=== PATIENT | male | born 1980 | race Caucasian/White ===

== ENCOUNTER 2023-04-04 13:41 | Emergency (ER) | payer MEDICAID, SELFPAY ==
[2023-04-04 13:59] VITALS: BP 116/75; PULSE 110; RESP 23; TEMP 36.4; O2SAT 99; BMI 21.2
--- NOTE | 2023-04-04 14:06 | XR_ITS ---
WS: [id number] EXAMINATION: XR chest 1V portable [id number] REASON FOR EXAM: dyspnea ORDER DATE: 04/04/2023 2:06 PM FINDINGS: There are perihilar and parenchymal granulomatous calcifications. Cardiomegaly is demonstrated. Ther e is an atherosclerotic aorta containing calcified plaque. There are no pleural effusions. XR/XR chest 1V portable [id number] IMPRESSION: CARDIOMEGALY WITH NO ACUTE PULMONARY CHANGE.
--- NOTE | 2023-04-04 14:06 | ECG_ITS ---
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 Measurements Intervals [place] Rate: 106 P: 61 HI: 148 QRS: -26 QRSD: 114 T: 192 QT: 350 QTc: 466 Interpretive Statements SINUS TACHYCARDIA LEFT ATRIAL ENLARGEMENT [-0.15mV P-WAVE IN V1/V2] BORDERLINE LEFT AXIS DEVIATION [QRS AXIS < -20] POSSIBLE RIGHT VENTRICULAR CONDUCTION DELAY [RSR (QR) IN V1/V2] ST DEVIATION AND MODERATE T-WAVE ABNORMALITY, CONSIDER LATERAL ISCHEMIA [-0.1+ mV T-WAVE IN I/aVL/V5/V6] ST DEVIATION AND MODERATE T-WAVE ABNORMALITY, CONSIDER INFERIOR ISCHEMIA [-0.1+ mV T-WAVE IN II/aVF] No previous ECG available for comparison Electronically Signed On 04-04-2023 18:39:05 CDT by Alicia Tuttle M.D. [id number] [email or web address]
[2023-04-04 14:17] VITALS: BP 118/84; PULSE 106; RESP 16; O2SAT 97
[2023-04-04] MEDS: sodium chloride 0.9% 1,000 ML 999 ML IV (14:24)
[2023-04-04 14:32] LABS: Basophils # 0.1 10^3/uL (0.0-0.1); Basophils % 0.7 %; Eosinophils # 0.1 10^3/uL (0.0-0.8); Hematocrit 51.7 % (42.0-52.0); Hemoglobin 17.2 g/dL (11.7-16.6); Lymphocytes # 1.7 10^3/uL (0.8-4.8); Lymphocytes % 20.9 %; Mean Corpuscular HGB Conc 33.3 g/dL (30.0-36.0); Mean Corpuscular Hemoglobin 31.4 pg (28.0-34.0); Mean Corpuscular Volume 94.3 fl (80-94); Mean Platelet Volume 10.6 fL (7.4-10.4); Monocytes # 0.6 10^3/uL (0.2-0.9); Monocytes % 6.7 %; Neutrophils # 5.76 10^3/uL (1.8-7.7); Neutrophils % 70.3 %; Nucleated Red Blood Cells % 0 %; Platelet Count 227 10^3/cmm (130-400); Red Blood Count 5.48 10^6/uL (4.1-5.3); Red Cell Distribution Width 12.9 % (12.1-15.1); White Blood Count 8.2 10^3/uL (4.0-10.0)
[2023-04-04 14:47] LABS: Troponin(5th) Baseline 27 ng/L (0-15)
[2023-04-04 14:50] LABS: Alanine Aminotransferase 100 U/L (0-41); Albumin Level 4.1 g/dL (3.5-5.2); Alkaline Phosphatase 147 U/L (40-130); Anion Gap 14.9 (5-19); Aspartate Amino Transferase 56 U/L (0-40); Blood Urea Nitrogen 11 mg/dL (6-20); Carbon Dioxide 25 mmol/L (22-29); Chloride 102 mmol/L (98-107); Globulin 2.2 g/dL (1.3-4.6); Glomerular Filtration Rate 82.3 mL/min (90-130); Glucose 165 mg/dL (65-115); Lipase 33 U/L (13-60); Osmolality Calculated 287 mOsm/kg (285-295); Potassium 4.9 mmol/L (3.5-5.1); Sodium 137 mmol/L (136-145); Total Bilirubin 0.5 mg/dL (0.15-1.2); Total Protein 6.3 g/dL (6.6-8.7)
--- NOTE | 2023-04-04 15:00 | PC.PHAR ---
PT STATES HE HAS BEEN TAKING ACCUTANE 10 MG AM AND 10 MG PM. TESTOSTERONE LOW DOSE, ARAMASIN. HE STATES HE DOES NOT USE A PHARMACY AND IS UNABLE TO OBTAIN THEM LEGALLY
--- NOTE | 2023-04-04 15:06 | ED_ITS ---
HPI - SOB/Dyspnea General: Chief Complaint: Shortness of Breath/Dyspnea Stated Complaint: SOB Time Seen by Provider: 04/04/23 14:06 History of Present Illness: HPI Narrative: Presents to the ER with complaints of shortness of breath started roughly about a week ago but then got better and came back roughly 12 hours ago worse. Patient did take in an old albuterol inhaler and it did seem to help. Patient does vape daily and occasionally smokes, patient stressed out daily. 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 Patient's pulse upon arrival was about 110 bpm. Albuterol inhaler did help nothing that the patient is aware of that seems to make this worse. Patient does not have a history of asthma or COPD. Review of Systems General: Reports: 10 or more systems reviewed and unremarkable except in HPI and below Physical Exam Const: COMMON NORMALS: no acute distress, average body habitus, patient oriented x3, no limitations, healthy appearing, alert and well nourished HENMT: COMMON NORMALS: normocephalic, atraumatic, hearing grossly normal bilaterally, external ears normal, Normal external nose present and moist oral mucous membranes HEAD & SCALP: normocephalic and atraumatic NOSE: Normal external nose present EXTERNAL EAR: Yes external ears normal Neck/C-Spine: COMMON NORMALS: full ROM, no lymphadenopathy, supple, no meningeal signs, no JVD and Thyroid normal THYROID: Thyroid normal Chest: COMMONS NORMALS: normal inspection of the chest and normal palpation of entire chest wall Resp: COMMON NORMALS: normal respiratory effort, No retractions and No use of accessory muscles; negative for clear to auscultation bilaterally (Occasional diffuse wheeze) AUSCULTATION: not clear to auscultation bilaterally (Occasional diffuse wheeze) Cardio: COMMON NORMALS: no JVD, regular rate, regular rhythm, S1 normal heart sound present, S2 normal heart sound present, No gallops present (Cardio), No clicks present (Cardio), No murmurs present (Cardio) and No rub (Cardio) RATE: regular rate RHYTHM: regular rhythm HEART SOUNDS: S1 normal heart sound present and S2 normal heart sound present GI: COMMON NORMALS: Normal to inspection, nondistended, normoactive bowel sounds present, Soft to palpation, non-tender, No hepatosplenomegaly present and no masses PALPATION: Yes Soft to palpation and Yes No hepatosplenomegaly present : COMMON NORMALS: Yes no CVA tenderness BLADDER/KIDNEY EXAM: Yes no CVA tenderness Back/Pelvis: COMMON NORMALS: no CVA tenderness Neuro: COMMON NORMALS: patient oriented x3 SENSORIUM/ORIENTATION: Yes alert MENINGEAL SIGNS: Yes no meningeal signs Course Vital Signs: Vital signs: Vital Signs Temperature 97.5 F L 04/04/23 13:59 Pulse Rate 100 04/04/23 15:36 Respiratory Rate 22 H 04/04/23 15:31 Blood Pressure 118/84 04/04/23 14:17 Pulse Oximetry 96 04/04/23 15:31 Oxygen Delivery Me thod Room Air 04/04/23 15:31 MDM - SOB/Dyspnea Medical Decision Making Presents to the ER with complaints of shortness of breath for about the last week. Worsening over the last 12 hours. 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 Lab work chest x-ray was obtained which was essentially benign. Patient was given 1 DuoNeb seem to help a lot. Patient was informed about the good Rx program and will be prescribed a Combivent inhaler. Patient is to follow-up with his PCP in approximately 7 to 10 days as needed. Differential Diagnosis Unlikely acute exacerbation of chronic obstructive airways disease, congestive heart failure, community acquired pneumonia, asthma with exacerbation or pulmonary embolism Medical Records I reviewed the patient's medical records. Lab Data I reviewed the patient's lab results. 04/04/23 14:15 04/04/23 14:15 Labs/Radiology: Radiology Impressions Chest X-Ray 04/04/23 14:06 IMPRESSION: CARDIOMEGALY WITH NO ACUTE PULMONARY CHANGE. Laboratory Results WBC 8.2 10^3/uL (4.0-10.0) 04/04/23 14:15 RBC 5.48 10^6/uL (4.1-5.3) H 04/04/23 14:15 Hgb 17.2 g/dL (11.7-16.6) H 04/04/23 14:15 Hct 51.7 % (42.0-52.0) 04/04/23 14:15 MCV 94.3 fl (80-94) H 04/04/23 14:15 MCH 31.4 pg (28.0-34.0) 04/04/23 14:15 MCHC 33.3 g/dL (30.0-36.0) 04/04/23 14:15 RDW 12.9 % (12.1-15.1) 04/04/23 14:15 Plt Count 227 10^3/cmm (130-400) 04/04/23 14:15 MPV 10.6 fL (7.4-10.4) H 04/04/23 14:15 Neut % (Auto) 70.3 % 04/04/23 14:15 Lymph % (Auto) 20.9 % 04/04/23 14:15 Peñuel[place] % (Auto) 6.7 % 04/04/23 14:15 Eos % (Auto) 1.0 % 04/04/23 14:15 Baso % (Auto) 0.7 % 04/04/23 14:15 Neut # (Auto) 5.76 10^3/uL (1.8-7.7) 04/04/23 14:15 Lymph # (Auto) 1.7 10^3/uL (0.8-4.8) 04/04/23 14:15 [place] # (Auto) 0.6 10^3/uL (0.2-0.9) 04/04/23 14:15 Eos # (Auto) 0.1 10^3/uL (0.0-0.8) 04/04/23 14:15 Baso # (Auto) 0.1 10^3/uL (0.0-0.1) 04/04/23 14:15 Nucleated RBC % (auto) 0 % 04/04/23 14:15 Nucleated RBCs # 0.0 /100WBC 04/04/23 14:15 Sodium 137 mmol/L (136-145) 04/04/23 14:15 Potassium 4.9 mmol/L (3.5-5.1) 04/04/23 14:15 Chloride 102 mmol/L (98-107) 04/04/23 14:15 Carbon Dioxide 25 mmol/L (22-29) 04/04/23 14:15 Anion Gap 14.9 (5-19) 04/04/23 14:15 BUN 11 mg/dL (6-20) 04/04/23 14:15 Creatinine 1.0 mg/dL (0.7-1.2) 04/04/23 14:15 GFR Calculation 82.3 mL/min (90-130) L 04/04/23 14:15 Glucose 165 mg/dL (65-115) H 04/04/23 14:15 Calculated Osmolality 287 mOsm/kg (285-295) 04/04/23 14:15 Calcium 9.0 mg/dL (8.5-10.5) 04/04/23 14:15 Magnesium 2.0 mg/dL (1.7-2.3) 04/04/23 14:15 Total Bilirubin 0.5 mg/dL (0.15-1.2) 04/04/23 14:15 AST 56 U/L (0-40) H 04/04/23 14:15 ALT 100 U/L (0-41) H 04/04/23 14:15 Alkaline Phosphatase 147 U/L (40-130) H 04/04/23 14:15 Troponin T Baseline 27 ng/L (0-15) H 04/04/23 14:15 Total Protein 6.3 g/dL (6.6-8.7) L 04/04/23 14:15 Albumin 4.1 g/dL (3.5-5.2) 04/04/23 14:15 Globulin 2.2 g/dL (1.3-4.6) 04/04/23 14:15 Lipase 33 U/L (13-60) 04/04/23 14:15 Discharge Plan Discharge Patient Disposition: Home Clinical Impression: Shortness of breath Condition: Stable Prescriptions: New ProAir RespiClick 90 mcg/actuation aerosol powdr breath activated 2 inh inhalation Q6H PRN (Reason: shortness of breath) Qty: 1 0RF Discharge Orders: Discharge ED (Routine); Ordered 04/04/23 Ordered By: Mariano Guerra Patient Instructions: Shortness of Breath (ED) Activity Restrictions/Additional Instructions: Please use a good Rx prescription program when purchasing your inhaler as this will save you a lot of money. Please use your inhaler as directed. Please follow-up with your family practice doctor in 1 week or sooner as needed. Coding Level of Care Code ED Drapery Operator for Michelle Patel
[2023-04-04] MEDS: ipratropium-albuterol 3 mL Neb INHALATION (15:28)
[2023-04-04 15:31] VITALS: PULSE 103; RESP 22; O2SAT 96
[2023-04-04 15:36] VITALS: PULSE 100
[2023-04-04 15:59] VITALS: BP 115/80; PULSE 105; RESP 16; O2SAT 95
== END 2023-04-04 16:01 | disposition home or self-care (01) ==
PROVIDERS: Emergency Provider Emergency Medicine
DX: R55 Syncope and collapse (principal)
CPT/HCPCS: 71045; 80053; 83690; 83735; 84484; 85025; 93005; 94640; 96360; 99285; J7030

== ENCOUNTER 2023-04-27 23:24 | Inpatient (IN) | payer MEDICAID, SELFPAY ==
[2023-04-27 23:28] VITALS: BP 123/81; PULSE 120; RESP 30; TEMP 36.4; O2SAT 99; BMI 20.5
--- NOTE | 2023-04-27 23:33 | ECG_ITS ---
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 Measurements Intervals [place] Rate: 117 P: 52 ND: 156 QRS: -68 QRSD: 117 T: 122 QT: 341 QTc: 477 Interpretive Statements SINUS TACHYCARDIA LEFT ATRIAL ENLARGEMENT [-0.15mV P-WAVE IN V1/V2] POSSIBLE RIGHT VENTRICULAR CONDUCTION DELAY [RSR (QR) IN V1/V2] LEFT ANTERIOR FASCICULAR BLOCK [QRS AXIS <= -45, QR IN I, RS IN II] ANTEROLATERAL MYOCARDIAL INFARCTION , OF INDETERMINATE AGE [40+ ms Q WAVE IN I/aVL/V3-V6] Compared to ECG 04/04/2023 13:58:39 Left anterior fascicular block now present Myocardial infarct finding now present T-wave abnormality no longer present Possible ischemia no longer present Electronically Signed On 04-28-2023 11:08:36 CDT by Therese Feliciano M.D. [id number]
--- NOTE | 2023-04-27 23:33 | XRR_ITS ---
PROCEDURE INFORMATION: Exam: XR Chest Exam date and time: 04/27/2023 11:39 PM Age: 42 years old Clinical indication: Shortness of breath; Chest pressure; Patient HX: C/O chest pain with SOB. Tachycardic on monitor. ; Additional info: Cp TECHNIQUE: Imaging protocol: Radiologic exam of the chest. Views: 1 view. COMPARISON: CR XR chest 1V portable [id number] 04/04/2023 2:18 PM FINDINGS: Lungs: Moderate there is some focal subsegmental atelectasis in the lingula. There is mild pulmonary venous congestion. Pleural spaces: Unremarkable. No pleural effusion. No pneumothorax. Heart/Mediastinum: The heart is enlarged. Bones/joints: Unremarkable. XR/XR chest 1V portable [id number] IMPRESSION: 1. Mild congestive failure. 2. Mild lingular atelectasis.
--- NOTE | 2023-04-27 23:59 | CTR_ITS ---
PROCEDURE INFORMATION: Exam: CTA Chest With Contrast Exam date and time: 04/28/2023 12:26 AM Age: 42 years old Clinical indication: Pain and abnormal findings; Abnormal lab test; Other: N/a; Abdominal pain; Abnormal diagnostic tests; Elevated d-dimer; Shortness of breath; Chest pressure; Patient HX: Chest/epigastric pain with SOB. D dimer of 0.81. ; Additional info: Chest pain, abd pain, SOB TECHNIQUE: Imaging protocol: Computed tomographic angiography of the chest with contrast. Exam focused on the arteries. 3D rendering (Not supervised by radiologist): MIP and/or 3D reconstructed images were created by the technologist. Radiation optimization: All CT scans at this facility use at least one of these dose optimization techniques: automated exposure control; mA and/or kV adjustment per patient size (includes targeted exams where dose is matched to clinical indication); or iterative reconstruction. Contrast material: OMNI 350; Contrast volume: 100 ml; Contrast route: INTRAVENOUS (IV); REPORTING DATA: Count of CT and Cardiac NM exams in prior 12 months: This patient has received 0 known CTs and 0 known cardiac nuclear medicine studies in the 12 months prior to the current study. COMPARISON: CR (CHEST, ) 04/27/2023 11:39 PM RADIATION DOSE METRICS: Total DLP (mGy-cm): 774.83 FINDINGS: Pulmonary arteries: There is no evidence of filling defects within the pulmonary arterial circulation to suggest pulmonary embolism. Aorta: There is no thoracic aortic aneurysm. 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 There is reflux of contrast into the inferior vena cava and right and middle hepatic veins. This may indicate cardiac dysfunction. Lungs: There is some focal subsegmental atelectasis in the lingula and left lower lobe. There are areas of mild bronchial wall thickening in both lungs in there are rounded areas of central ground-glass opacity mostly in a peribronchial distribution. Findings are worrisome for bronchitis and multifocal bronchopneumonia. Pleural spaces: There is a small right and tiny left pleural effusion. Heart: The heart is moderately enlarged. There is left ventricular enlargement and left atrial enlargement. Lymph nodes: There is no evidence of lymphadenopathy. Bones/joints: Unremarkable. No acute fracture. Soft tissues: Unremarkable. PROCEDURE INFORMATION: Exam: CT Abdomen And Pelvis With Contrast Exam date and time: 04/28/2023 12:26 AM Age: 42 years old Clinical indication: Pain and abnormal findings; Abnormal lab test; Other: N/a; Abdominal pain; Abnormal diagnostic tests; Elevated d-dimer; Shortness of breath; Chest pressure; Patient HX: Chest/epigastric pain with SOB. D dimer of 0.81. ; Additional info: Chest pain, abd pain, SOB TECHNIQUE: Imaging protocol: Computed tomography of the abdomen and pelvis with contrast. Radiation optimization: All CT scans at this facility use at least one of these dose optimization techniques: automated exposure control; mA and/or kV adjustment per patient size (includes targeted exams where dose is matched to clinical indication); or iterative reconstruction. Contrast material: OMNI 350; Contrast volume: 100 ml; Contrast route: INTRAVENOUS (IV); REPORTING DATA: Count of CT and Cardiac NM exams in prior 12 months: This patient has received 0 known CTs and 0 known cardiac nuclear medicine studies in the 12 months prior to the current study. COMPARISON: CT abdomen pelvis wo con [id number] 11/28/2015 2:12 AM RADIATION DOSE METRICS: Total DLP (mGy-cm): 774.83 FINDINGS: Liver: There is no focal abnormality within the liver. There is mild enlargement of the liver. Liver is 21 cm in height. Gallbladder and bile ducts: There is marked gallbladder wall thickening which is a nonspecific finding. Cholecystitis can not be excluded.There is no common bile duct dilation. Pancreas: The pancreas is normal. The pancreas is normal. Spleen: The spleen is normal. Adrenal glands: The adrenal glands are normal. Kidneys and ureters: There is focal area of diminished cortical enhancement in the upper pole of the right kidney which is worrisome for focal pyelonephritis. Please correlate clinically. 13 mm benign-appearing simple cyst lower pole left kidney. There is no evidence of hydronephrosis. There is no evidence of renal or ureteral calcifications. Stomach and bowel: There is no evidence of colitis/diverticulitis. There is no evidence of intestinal obstruction. Appendix: A normal appendix is identified. Intraperitoneal space: There is no evidence of free intraperitoneal fluid. Vasculature: The aorta is normal. Lymph nodes: There are periaortic lymph nodes measuring up to 8 x 13 mm, somewhat increased in number but no adenopathy. Urinary bladder: Unremarkable as visualized. Reproductive: Unremarkable as visualized. Bones/joints: Unremarkable. No acute fracture. Soft tissues: Unremarkable. CT/CT angio chest w abd pel w con IMPRESSION: 1. No evidence of pulmonary embolism. 2. Cardiomegaly with left ventricular and left atrial enlargement 3. Findings suggestive of cardiac dysfunction. 4. Bronchitis and multifocal bronchopneumonia. 5. Bilateral pleural effusions right greater than left IMPRESSION: 1. Marked gallbladder wall thickening which is a nonspecific finding but cholecystitis not excluded 2. Focal pyelonephritis upper pole right kidney.. 3. Mild hepatomegaly COMMENTS: Consistent with the [place] [employer]'s Incidental Findings Committee white paper (J Am Luzmaria Radiol 2018): Any incidental renal lesion less than 1 cm or classified as too small to characterize, or any incidental cystic renal lesion characterized as simple-appearing, is likely benign. No follow-up imaging is recommended for these lesions per consensus recommendations based on imaging criteria.
[2023-04-28] VITALS (154 sets, daily range): BP systolic 93–123; BP diastolic 49–81; PULSE 83–116; RESP 12–39; TEMP 36.4–37; O2SAT 93–100
[2023-04-28 00:04] LABS: Basophils # 0.1 10^3/uL (0.0-0.1); Basophils % 1.2 %; Eosinophils # 0.1 10^3/uL (0.0-0.8); Eosinophils % 1.2 %; Hematocrit 52.4 % (42.0-52.0); Hemoglobin 17.5 g/dL (11.7-16.6); Lymphocytes # 2.5 10^3/uL (0.8-4.8); Lymphocytes % 24.9 %; Mean Corpuscular HGB Conc 33.4 g/dL (30.0-36.0); Mean Corpuscular Hemoglobin 30.6 pg (28.0-34.0); Mean Corpuscular Volume 91.6 fl (80-94); Monocytes # 0.7 10^3/uL (0.2-0.9); Monocytes % 6.6 %; Neutrophils # 6.65 10^3/uL (1.8-7.7); Neutrophils % 65.8 %; Nucleated Red Blood Cells % 0 %; Platelet Count 292 10^3/cmm (130-400); Red Blood Count 5.72 10^6/uL (4.1-5.3); Red Cell Distribution Width 12.4 % (12.1-15.1); White Blood Count 10.1 10^3/uL (4.0-10.0)
[2023-04-28 00:08] LABS: D Dimer 0.81 ug/mIFEU (0-0.59)
[2023-04-28 00:12] LABS: Troponin(5th) Baseline 31 ng/L (0-15)
[2023-04-28] MEDS: morphine 4 mg/mL SDV 1 mL IVP (00:19)
[2023-04-28] MEDS: aluminum-mag hydrox-simethicon 30 ML, sucralfate oral liq 1 GM PO (00:19)
[2023-04-28] MEDS: ondansetron 2 mg/ML SDV 2 mL 4 MG IVP ×3 (00:19→11:21)
[2023-04-28 00:30] LABS: SARS Covid-2 Antigen negative (Negative)
[2023-04-28] MEDS: iohexol 350 mg/mL 500 mL Btl (per mL) IV (00:31)
[2023-04-28 00:37] LABS: Alanine Aminotransferase 234 U/L (0-41); Albumin Level 4.2 g/dL (3.5-5.2); Alkaline Phosphatase 132 U/L (40-130); Anion Gap 17.8 (5-19); Aspartate Amino Transferase 136 U/L (0-40); Blood Urea Nitrogen 23 mg/dL (6-20); Calcium 8.7 mg/dL (8.5-10.5); Carbon Dioxide 18 mmol/L (22-29); Chloride 106 mmol/L (98-107); Creatine Phosphokinase 204 U/L (39-308); Globulin 1.7 g/dL (1.3-4.6); Glomerular Filtration Rate 82.3 mL/min (90-130); Glucose 121 mg/dL (65-115); NT Pro B Type Natriuretic Pept 18814 pg/mL (0-125); Osmolality Calculated 289 mOsm/kg (285-295); Potassium 4.8 mmol/L (3.5-5.1); Sodium 137 mmol/L (136-145); Total Bilirubin 0.7 mg/dL (0.15-1.2); Total Protein 5.9 g/dL (6.6-8.7)
--- NOTE | 2023-04-28 01:33 | ECG_ITS ---
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 Measurements Intervals [place] Rate: 94 P: 54 SC: 164 QRS: -58 QRSD: 110 T: 219 QT: 378 QTc: 475 Interpretive Statements SINUS RHYTHM LEFT ATRIAL ENLARGEMENT [-0.15mV P-WAVE IN V1/V2] LEFT AXIS DEVIATION [QRS AXIS < -30] POSSIBLE RIGHT VENTRICULAR CONDUCTION DELAY [RSR (QR) IN V1/V2] ANTEROSEPTAL MYOCARDIAL INFARCTION , OF INDETERMINATE AGE MODERATE T-WAVE ABNORMALITY, CONSIDER INFERIOR ISCHEMIA Compared to ECG 04/27/2023 23:32:43 Left-axis deviation now present T-wave abnormality now present Possible ischemia now present Left anterior fascicular block no longer present Myocardial infarct finding still present Electronically Signed On 04-28-2023 17:19:13 CDT by Therese Feliciano M.D. [id number]
--- NOTE | 2023-04-28 01:40 | ED_ITS ---
HPI - Chest Pain General: Chief Complaint: Chest Pain Stated Complaint: sob / chest pain Time Seen by Provider: 04/27/23 23:34 History of Present Illness: 42-year-old male with a history of chest and abdominal discomfort on and off for the past couple of weeks. He was here last week with chest discomfort and sent home after cardiac work-up was evidently negative. He has significant shortness of breath. Some trouble breathing with mild increase in pain while breathing he has had epigastric pain and a feeling of being bloated. He is also had lower extremity edema Associated symptoms: Reports abdominal pain, dyspnea, nausea and palpitations; Deny fever(s) or vomiting Review of Systems Const: Denies: fever(s) Card: Reports: chest pain and palpitations Resp: Reports: dyspnea and non-productive cough; Denies: productive cough GI: Reports: abdominal pain and nausea; Denies: vomiting : Denies: flank pain Musc: Denies: neck pain or back pain Skin/Breast: Denies: rash Psych: Reports: anxiety Physical Exam Const: GENERAL APPEARANCE: cooperative, in distress, anxious and ill appearing; not frail appearing ORIENTATION/CONSCIOUSNESS: Yes awake HENMT: COMMON NORMALS: normocephalic, atraumatic and Normal external nose present HEAD & SCALP: normocephalic and atraumatic FACE & SINUS: normal facial exam and face symmetric NOSE: Normal external nose present Eye: COMMON NORMALS: Equal, round and reactive pupils present and EOMs intact bilaterally PUPIL: Yes Equal, round and reactive pupils present Neck/C-Spine: GENERAL: Yes trachea midline Chest: CHEST: Yes Symmetrical chest wall rise Resp: COMMON NORMALS: clear to auscultation bilaterally EFFORT & INSPECTION: Yes tachypneic, Yes labored and Yes uses accessory muscles AUSCULTATION: clear to auscultation bilaterally Cardio: COMMON NORMALS: regular rhythm RATE: tachycardic RHYTHM: regular rhythm GI: COMMON NORMALS: Normal to inspection, nondistended, normoactive bowel soun ds present Extremity: GENERAL: Yes edema Neuro: JS COMA SCALE: document GCS findings Js coma scale eye opening: Spontaneous Js coma scale verbal response: Orientated Fletcher coma scale motor response: Obey commands Js coma scale total score: 15 SENSORY EXAM: Yes extremities (intact) Psych: COMMON NORMALS: speech normal SPEECH: Yes normal speech Skin: COMMON NORMALS: no rashes or lesions noted GENERAL SKIN EXAM: no rashes or lesions noted Course Vital Signs: Vital signs: Vital Signs Temperature 97.6 F 04/28/23 04:39 Pulse Rate 99 04/28/23 04:39 Respiratory Rate 18 04/28/23 04:39 Blood Pressure 94/75 04/28/23 04:39 Pulse Oximetry 100 04/28/23 04:39 Oxygen Delivery Me thod Room Air 04/28/23 04:39 MDM - Chest Pain Medical Decision Making Patient presents tachycardic. Oxygen sats are normal on room air, but he has labored breathing. He is afebrile and normotensive. His white blood cell count is 10, hemoglobin 17.5. Bicarbonate is 18. BUN is slightly elevated. He has a large heart on chest x-ray. D-dimer was slightly elevated. AST and ALT are increased without increase in bilirubin. His BNP is 18,000. CTA of the chest shows no PE, but does show cardiomegaly with left ventricular and left atrial enlargement. Bilateral effusions are present. There is some evidence of bronchitis and bronchopneumonia, which could be fluid related as well. Spoke with the hospitalist regarding admission. She is agreed to admit. She will see the patient. Further work-up to include echo, etc. he is given 40 mg of Lasix in the ER. Lab Data 04/27/23 23:45 04/27/23 23:45 Radiology Impressions Chest X-Ray 04/27/23 23:33 IMPRESSION: 1. Mild congestive failure. 2. Mild lingular atelectasis. Chest/Abdomen/Pelvis CT 04/27/23 23:59 IMPRESSION: 1. No evidence of pulmonary embolism. 2. Cardiomegaly with left ventricular and left atrial enlargement 3. Findings suggestive of cardiac dysfunction. 4. Bronchitis and multifocal bronchopneumonia. 5. Bilateral pleural effusions right greater than left IMPRESSION: 1. Marked gallbladder wall thickening which is a nonspecific finding but cholecystitis not excluded 2. Focal pyelonephritis upper pole right kidney.. 3. Mild hepatomegaly COMMENTS: Consistent with the [employer]'s Incidental Findings Committee white paper (J Am Luzmaria Radiol 2018): Any incidental renal lesion less than 1 cm or classified as too small to characterize, or any incidental cystic renal lesion characterized as simple-appearing, is likely benign. No follow-up imaging is recommended for these lesions per consensus recommendations based on imaging criteria. Laboratory Results WBC 10.1 10^3/uL (4.0-10.0) H 04/27/23 23:45 RBC 5.72 10^6/uL (4.1-5.3) H 04/27/23 23:45 Hgb 17.5 g/dL (11.7-16.6) H 04/27/23 23:45 Hct 52.4 % (42.0-52.0) H 04/27/23 23:45 MCV 91.6 fl (80-94) 04/27/23 23:45 MCH 30.6 pg (28.0-34.0) 04/27/23 23:45 MCHC 33.4 g/dL (30.0-36.0) 04/27/23 23:45 RDW 12.4 % (12.1-15.1) 04/27/23 23:45 Plt Count 292 10^3/cmm (130-400) 04/27/23 23:45 MPV 11.0 fL (7.4-10.4) H 04/27/23 23:45 Neut % (Auto) 65.8 % 04/27/23 23:45 Lymph % (Auto) 24.9 % 04/27/23 23:45 [place] % (Auto) 6.6 % 04/27/23 23:45 Eos % (Auto) 1.2 % 04/27/23 23:45 Baso % (Auto) 1.2 % 04/27/23 23:45 Neut # (Auto) 6.65 10^3/uL (1.8-7.7) 04/27/23 23:45 Lymph # (Auto) 2.5 10^3/uL (0.8-4.8) 04/27/23 23:45 [place] # (Auto) 0.7 10^3/uL (0.2-0.9) 04/27/23 23:45 Eos # (Auto) 0.1 10^3/uL (0.0-0.8) 04/27/23 23:45 Baso # (Auto) 0.1 10^3/uL (0.0-0.1) 04/27/23 23:45 Nucleated RBC % (auto) 0 % 04/27/23 23:45 Nucleated RBCs # 0.0 /100WBC 04/27/23 23:45 D-Dimer 0.81 ug/mIFEU (0-0.59) H 04/27/23 23:45 Sodium 137 mmol/L (136-145) 04/27/23 23:45 Potassium 4.8 mmol/L (3.5-5.1) 04/27/23 23:45 Chloride 106 mmol/L (98-107) 04/27/23 23:45 Carbon Dioxide 18 mmol/L (22-29) L 04/27/23 23:45 Anion Gap 17.8 (5-19) 04/27/23 23:45 BUN 23 mg/dL (6-20) H 04/27/23 23:45 Creatinine 1.0 mg/dL (0.7-1.2) 04/27/23 23:45 GFR Calculation 82.3 mL/min (90-130) L 04/27/23 23:45 Glucose 121 mg/dL (65-115) H 04/27/23 23:45 Calculated Osmolality 289 mOsm/kg (285-295) 04/27/23 23:45 Calcium 8.7 mg/dL (8.5-10.5) 04/27/23 23:45 Total Bilirubin 0.7 mg/dL (0.15-1.2) 04/27/23 23:45 AST 136 U/L (0-40) H 04/27/23 23:45 ALT 234 U/L (0-41) H 04/27/23 23:45 Alkaline Phosphatase 132 U/L (40-130) H 04/27/23 23:45 Creatine Kinase 204 U/L (39-308) 04/27/23 23:45 Troponin T Baseline 31 ng/L (0-15) H 04/27/23 23:45 Troponin T 120 Minute 33.25 ng/L (0-15) H 04/28/23 01:45 Delta Troponin T 2.25 ABS# (0-10) 04/28/23 01:45 NT-Pro-B Natriuret Pep 67000 pg/mL (0-125) H 04/27/23 23:45 Total Protein 5.9 g/dL (6.6-8.7) L 04/27/23 23:45 Albumin 4.2 g/dL (3.5-5.2) 04/27/23 23:45 Globulin 1.7 g/dL (1.3-4.6) 04/27/23 23:45 Urine Color Yellow (Yellow) 04/28/23 01:45 Urine Appearance Clear (CLEAR) 04/28/23 01:45 Urine pH 6.5 (5-7) 04/28/23 01:45 Ur Specific [place] 1.010 (1.005-1.030) 04/28/23 01:45 Urine Protein 1+ (Negative) H 04/28/23 01:45 Urine Glucose (UA) Norm (Normal) 04/28/23 01:45 Urine Ketones Negative (Negative) 04/28/23 01:45 Urine Blood Neg (Negative) 04/28/23 01:45 Urine Nitrate Negative (Negative) 04/28/23 01:45 Urine Bilirubin Neg (Negative) 04/28/23 01:45 Urine Urobilinogen Norm mg/dL (Negative) 04/28/23 01:45 Ur Leukocyte Esterase Negative (Negative) 04/28/23 01:45 Urine RBC 0-4 /hpf (0-2) H 04/28/23 01:45 Urine WBC 0-4 /hpf (0-5) H 04/28/23 01:45 Ur Squamous Epith Cells 0-4 /hpf (0-5) H 04/28/23 01:45 Amorphous Sediment Not Reportable 04/28/23 01:45 Urine Bacteria Trace /hpf (NONE) 04/28/23 01:45 Urine Opiates Screen Positive ng/mL (Negative) H 04/28/23 01:45 Ur Barbiturates Screen Negative ng/mL (Negative) 04/28/23 01:45 Ur Phencyclidine Scrn Negative ng/mL (Negative) 04/28/23 01:45 Ur Amphetamines Screen Positive ng/mL (Negative) H 04/28/23 01:45 U Benzodiazepines Scrn Negative ng/mL (Negative) 04/28/23 01:45 Urine Cocaine Screen Negative ng/mL (Negative) 04/28/23 01:45 U Marijuana (THC) Screen Positive ng/mL (Negative) H 04/28/23 01:45 SARS-CoV-2 Ag (Rapid) negative (Negative) 04/28/23 00:10 Discharge Plan Discharge Patient Disposition: Admitted As Inpatient Admit Provider: Mamta Lam Clinical Impression: Chest pain, Congestive heart failure (CHF) Condition: Stable Coding Level of Care Code ED 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
[2023-04-28] MEDS: FUROsemide 10 mg/mL SDV 4mL 40 MG IVP ×2 (01:49→11:48)
[2023-04-28] MEDS: fentaNYL 50 mcg/mL INJ 2mL 75 MCG IVP (01:49)
[2023-04-28 02:34] LABS: Add Urine Culture? No; Add Urine Microscopic? YES; Bacteria Urine TRACE /hpf; Bilirubin Urine Neg (Negative); Blood Urine Neg (Negative); Glucose Urine UA Norm (Normal); Ketones Urine Negative (Negative); Leukocyte Esterase Urine Negative (Negative); Nitrate Urine Negative (Negative); Protein Urine 1+ (Negative); RBC Urine 0-4 /hpf (0-2); Squamous Epithelial Cell Urine 0-4 /hpf (0-5); Urine Appearance Clear (CLEAR); Urine Color Yellow (Yellow); Urobilinogen Urine Norm (Negative); WBC Urine 0-4 /hpf (0-5); pH Urine 6.5 (5-7)
[2023-04-28 02:37] LABS: Amphetamines Screen Urine Positive (Negative); Barbiturates Screen Urine Negative (Negative); Benzodiazepines Screen Urine Negative (Negative); Cocaine Screen Urine Negative (Negative); Opiate Screen Urine Positive (Negative); PCP Screen Urine Negative (Negative); THC Screen Urine Positive (Negative)
[2023-04-28 02:42] LABS: Troponin 5 2HR 33.25 ng/L (0-15)
[2023-04-28 02:43] LABS: Troponin 5 2HR Delta 2.25 ABS# (0-10)
[2023-04-28 06:11] LABS: Troponin 5 6HR 28.43 ng/L (0-15)
[2023-04-28 06:13] LABS: Troponin 5 6HR Delta -2.57 ng/L (0-12)
--- NOTE | 2023-04-28 08:14 | USCV_ITS ---
Adair Gardiner Age: 42 Gender: M : 1980 Exam Date: 04/28/2023 08:43 Ordering Phys: Jason Nolen MD Technologist: Daniel Conrad Exam Location: [facility] Indication: ? ef BP: 101 / 67 HR: 92 Rhythm: Sinus Technical Quality: Adequate MEASUREMENTS (Male / Female) Normal Values 2D ECHO LV Diastolic Diameter PLAX 7.5 cm 4.2 - 5.9 / 3.9 - 5.3 cm LV Systolic Diameter PLAX 7.0 cm IVS Diastolic Thickness 1.2 cm 0.6 - 1.0 / 0.6 - 0.9 cm IVS Systolic Thickness 1.4 cm LVPW Diastolic Thickness 1.3 cm 0.6 - 1.0 / 0.6 - 0.9 cm LVPW Systolic Thickness 1.8 cm LVOT Diameter 2.8 cm LV Ejection Fraction 2D Teich 14.1 % LV Ejection Fraction MOD 2C 22.3 % LV Ejection Fraction 2C AL 19.7 % LA Diameter 4.1 cm IVC Diameter 2.1 cm M-MODE Aortic Annulus Diameter 3.8 cm LA Ao Ratio MM 1.1 MV E Point Septal Separation 3.1 cm DOPPLER AV Peak Velocity 79.0 cm/s LVOT Peak Velocity 50.0 cm/s AV Area Cont Eq vti 5.1 cm squared AV Area Cont Eq pk 3.8 cm squared MV Area PHT 5.0 cm squared Mitral E to A Ratio 1.9 MV E' Velocity 38.0 cm/s Mitral E to LV E' Lateral Ratio 8.5 TR Peak Velocity 221.3 cm/s TR Peak Gradient 19.6 mmHg TV Peak E Velocity 59.0 cm/s Right Atrial Pressure 3.0 mmHg Pulmonary Artery Systolic Pressu 22.6 mmHg RV Acceleration Time 0.1 s FINDINGS Left Ventricle Moderately increased left ventricular cavity size. Severe diffuse hypokinesia of the left ventricle with an ejection fraction of 26% Right Ventricle Normal right ventricle with a slightly diminished ejection fraction Right Atrium The right atrium is normal in size. Left Atrium Mildly increased left atrial size. Mitral Valve Moderate mitral valve regurgitation. Aortic Valve No gross abnormalities noted Tricuspid Valve Mild tricuspid valve regurgitation. Estimated pulmonary artery peak systolic pressure 26 mmHg Pulmonic Valve No gross abnormalities noted Pericardium Normal pericardium without effusion. Aorta Normal ascending aorta dimension. IVC The inferior vena cava appears normal. CONCLUSIONS Moderately increased left ventricular cavity size. Severe diffuse hypokinesia of the left ventricle with an ejection fraction of 26%. Normal right ventricle with a slightly diminished ejection fraction. Mildly increased left atrial size. Moderate mitral valve regurgitation. Mild tricuspid valve regurgitation. Estimated pulmonary artery peak systolic pressure 26 mmHg. There is no pericardial effusion. There are no intracardiac masses. No similar previous studies are available for comparison Dr Alicia Tuttle MD FAC (Electronically Signed) Final Date: 28 April 2023 18:59 S
--- NOTE | 2023-04-28 08:20 | P.HP_ITS ---
Providers/Chief Complaint Admitting Physician: Jason Nolen MD Chief Complaint: sob / chest pain History of Present Illness Adair Gardiner is a 42 year old male presenting to the emergency department with shortness of breath. He is also been having sharp intermittent stabbing chest discomfort. Symptoms of been going on at least a month. Occasionally swelling in his lower extremities. He states he can feel short of breath at odd times, such as bending over, sometimes doing activity but other times activity feels better. He has had some chills, and sweats. No documented fevers. He has had no vomiting, diarrhea. He reports no cardiac issues in the past other than perhaps mitral valve prolapse. He also reports at one time he was thrombocytopenic. He specifically denies any past history of polycythemia. When asked about his urine drug screen being positive he reports some recent THC use in the form of Gummies but denies any amphetamine use in many years. Denies any significant alcohol use. Some epigastric pain when he presented this time. Review of Systems General: Reports: 10 or more systems reviewed and unremarkable except in HPI and below Card: Reports: chest pain and swelling of feet/ankles Resp: Reports: dyspnea; Denies: productive cough, non-productive cough, wheezing or hemoptysis GI: Reports: abdominal pain; Denies: nausea or vomiting Medications/Allergies Home Medications Medication Instructions Recorded Confirmed Last Taken Type aspirin 81 mg chewable tablet 81 mg PO DAILY 04/28/23 04/28/23 Unknown History krill oil 500 mg capsule 500 mg PO TID 04/28/23 04/28/23 Unknown History Allergies Allergy/AdvReac Type Severity Reaction Status Date / Time No Known Allergies Allergy Verified 04/27/23 23:31 PFSH Acute PFSH: Medical History (Updated 04/28/23 @ 08:27 by Jason Nolen MD) History of kidney stones Mitral valve prolapse Surgical History (Updated 04/28/23 @ 08:23 by Jason Nolen MD) History of hand surgery Family History (Updated 04/28/23 @ 08:24 by Jason Nolen MD) Other CAD (coronary artery disease) Social History (Updated 04/28/23 @ 08:24 by Jason Nolen MD) Smoking and tobacco status: current every day smoker Alcohol intake: current Alcohol intake frequency: few times a month Substance/Drug Use: former Other PFSH information: Supplemental [facility] Information: Reports he does not smoke much anymore, but does vape. Vitals/I&O/Wt Last Vital Signs Temp 97.6 F 04/28/23 04:39 Pulse 98 04/28/23 05:25 Resp 18 04/28/23 04:39 BP 94/75 04/28/23 04:39 Pulse Ox 100 04/28/23 04:39 O2 Del Method Room Air 04/28/23 04:39 04/27/23 04/28/23 04/28/23 22:59 06:59 14:59 Intake Total 480 / 480 480 / 480 Balance 480 / 480 480 / 480 Weight last 48 hrs Weight 72.575 kg Data 04/27/23 23:45 04/27/23 23:45 Other Labs: EKG demonstrates sinus rhythm, left axis deviation, left atrial enlargement. Poor R wave progression and inferior ST-T wave flattening, by my read Chest x-ray demonstrates pulmonary congestion, cardiomegaly by my read CT chest abdomen pelvis demonstrates some gallbladder wall thickening, concern of bilateral pneumonia, bilateral pleural effusions right greater than left Dimer 0.81 Bilirubin is normal AST 136, ALT 234, alk phos 132 Troponin 31 with repeat of 33 and 6 hours 28 BNP 18 814 Urinalysis negative with exception of 1+ protein Urine drug screen positive for opiates which she did receive in the emergency department as well as amphetamines and marijuana Rapid COVID-negative A&P Assessment and plan (1) Congestive heart failure (CHF): Patient presents with symptoms consistent with acute congestive heart failure. Will check TSH Echocardiogram He received Lasix 40 mg IV x1 in the emergency department. We will follow him clinically but likely this will need to be redosed later in the afternoon. Would like to know echocardiogram results prior to that if possible. Will likely need further evaluation after echocardiogram is completed Troponin was elevated but did not show significant change CBC, CMP tomorrow (2) Pneumonia: Concern of pneumonia on x-ray. Patient has had some chills and sweats Initiate Rocephin and Zithromax COVID PCR, sputum culture Discussed with him this could also be vaping injury. Discussed with him not to vape, and offered nicotine patch. He refused a nicotine patch. (3) Polycythemia: Had polycythemia on admission. This could be secondary to tobacco. Doubt polycythemia rubra vera. We will continue to follow. (4) Transaminitis: Significant transaminitis Slight gallbladder wall thickening, doubt cholecystitis Follow liver enzymes with repeat lab tomorrow Check hepatitis panel Check HIV (5) Hyperglycemia: Check hemoglobin A1c (6) Positive urine drug screen: Positive urine drug screen for marijuana and amphetamines. Patient denies amphetamine use Plan Full code Lovenox for DVT prophylaxis Attestations 2 Medical Necessity Statement*: Will need greater than 2 midnight stay for evaluation and treatment of acute congestive heart failure, pneumonia Diagnoses Congestive heart failure (CHF) I50.9 Pneumonia J18.9 Polycythemia D75.1 Transaminitis R74.01 Hyperglycemia R73.9 Positive urine drug screen R82.5 Time Spent (min) 56
[2023-04-28 09:08] LABS: Thyroid Stimulating Hormone 3.48 uIU/mL (0.27-4.20)
[2023-04-28 09:57] LABS: Estmated Average Glucose 111; Hemoglobin A1C 5.5 % (4.0-6.0)
[2023-04-28 10:09] LABS: Hepatitis A Antibody IgM Non-Reactive (Nonreactive); Hepatitis B Core IgM Non-Reactive (Nonreactive); Hepatitis B Surface Antigen Non-Reactive (Nonreactive); Hepatitis C Virus Antibody Non-Reactive (Nonreactive)
[2023-04-28] MEDS: enoxaparin 40 mg/0.4 mL Syringe SUBCUT (10:19)
[2023-04-28] MEDS: pantoprazole DR 40 mg Tablet PO (10:20)
[2023-04-28] MEDS: cefTRIAXone 1,000 MG in sodium chloride 0.9% (plus) 50 ML 100 MG IV (10:20)
[2023-04-28] MEDS: aspirin 81 mg EC Tablet PO (10:20)
[2023-04-28] MEDS: azithromycin 500 MG in sodium chloride 0.9% 250 ML 250 MG IV (10:21)
[2023-04-28] MEDS: acetaminophen 325 mg Tablet 650 MG PO (10:23)
[2023-04-28 10:27] LABS: HIV 1 & 2 Antibody Non-Reactive (Non-Reactiv); HIV 1 & 2 Antigen Non-Reactive (Non-Reactiv)
--- NOTE | 2023-04-28 11:05 | ECG_ITS ---
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 Measurements Intervals [place] Rate: 116 P: 45 ME: 165 QRS: -71 QRSD: 106 T: 132 QT: 355 QTc: 493 Interpretive Statements SINUS TACHYCARDIA LEFT ATRIAL ENLARGEMENT [-0.15mV P-WAVE IN V1/V2] POSSIBLE RIGHT VENTRICULAR CONDUCTION DELAY [RSR (QR) IN V1/V2] LEFT ANTERIOR FASCICULAR BLOCK [QRS AXIS <= -45, QR IN I, RS IN II] ANTEROSEPTAL MYOCARDIAL INFARCTION , OF INDETERMINATE AGE [40+ ms Q WAVE IN V1-V4] MODERATE T-WAVE ABNORMALITY, CONSIDER LATERAL ISCHEMIA Compared to ECG 04/28/2023 01:39:05 Left anterior fascicular block now present Sinus rhythm no longer present Left-axis deviation no longer present T-wave abnormality still present Possible ischemia still present Electronically Signed On 04-28-2023 17:15:44 CDT by Therese Feliciano M.D. [email or web address]
[2023-04-28] MEDS: LORazepam 2 mg/mL INJ 1 mL 0.5 MG IVP (11:21)
[2023-04-28] MEDS: sodium chloride 0.9% 500 ML 999 ML IV (11:37)
[2023-04-28] MEDS: enoxaparin 30 mg/0.3 mL Syringe SUBCUT (11:37)
[2023-04-28 11:40] LABS: Adenovirus Not Detected (NOT DETECT); Chlamydia Pneumoniae Not Detected (NOT DETECT); Coronavirus 229E,HKU1,NL63,OC4 Not Detected (NOT DETECT); Human Metapneumovirus Not Detected (NOT DETECT); Human Rhinovirus/Enterovirus Not Detected (NOT DETECT); Influenza A Not Detected (NOT DETECT); Influenza A H1 Not Detected (NOT DETECT); Influenza A H1-2009 Not Detected (NOT DETECT); Influenza A H3 Not Detected (NOT DETECT); Influenza B Not Detected (NOT DETECT); Mycoplasma Pneumoniae Not Detected (NOT DETECT); Parainfluenza Virus Type 1 Not Detected (NOT DETECT); Parainfluenza Virus Type 2 Not Detected (NOT DETECT); Parainfluenza Virus Type 3 Not Detected (NOT DETECT); Parainfluenza Virus Type 4 Not Detected (NOT DETECT); Respiratory Syncytial Virus A Not Detected (NOT DETECT); Respiratory Syncytial Virus B Not Detected (NOT DETECT); SARS-COV-2 Not Detected (NOT DETECT)
--- NOTE | 2023-04-28 11:45 | XACV_ITS ---
Exam Room: [facility] Ht: 188 cm Wt: 73 kg BSA: 1.94 m2 Gender: Male : 1980 Any Known Allergies: No known allergies Exam Priority: Routine Procedure(s): Procedure Description: Diagnostic procedure Procedure Description: Right Heart Catheterization Procedure Description: Aortogram Procedure Description: O2 saturation Procedure Description: Coronary Angiography Diagnostic Cath Status: Urgent Diagnostic Findings * INDICATION: LV dysfunction/Worsening angina. 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 No significant disease noted in the Left Main, Left Anterior Descending, Right, or Circumflex coronary arteries. * Coronary angiography shows right dominance. Conclusions 1. 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 No significant disease noted in the Left Main, Left Anterior Descending, Right, or Circumflex coronary arteries. 2. Elevated right and left sided cardiac pressures. Recommendations * Patient will need cardiac CT to assess left main artery course and rule out interarterial course. * Aggressive medical therapy. Interventional RX Recommendation: medical therapy and/or counseling Diagnostic RX Recommendation: medical therapy and/or counseling Pressures Phase:Rest AO : 82 / 75 ( 79 ) @ 1:25:00 PM 89 / 70 ( 76 ) @ 1:28:00 PM 89 / 67 ( 74 ) @ 1:31:00 PM 89 / 67 ( 74 ) @ 1:31:00 PM LV : 95 / 2 / 27 @ 1:30:00 PM 93 / 4 / 27 @ 1:31:00 PM RV : 48 / 22 @ 2:01:00 PM PA : 49 / 30 ( 38 ) @ 1:59:00 PM RA : a wave = 22 v wave = 19 mean = 18 @ 2:01:00 PM PCW : a wave = 29 v wave = 31 mean = 27 @ 1:59:00 PM O2 Content Phase:Rest PA : O2 Content O2: 65.5 @ :28:00 PM Saturations Phase:Rest AO : 95 @ 1:25:00 PM PA : 66 @ 1:28:00 PM Cardiac Output Phase:Rest Huang : 4 @ ::46 PM Huang Cardiac Index: 2 @ ::46 PM Flow Phase:Rest Qp : 4 @ ::46 PM Qs : 4 @ ::46 PM Valves Phase:DefaultPhase AV : 4.0 @ ::46 PM 4.0 @ ::46 PM AV Mean Gradient: 11.0 @ ::46 PM 11.0 @ ::46 PM AV Flow: 344 @ ::46 PM AV Area: 2.3 @ ::46 PM AV Area Index: 1.18 @ ::46 PM Clinical Evaluation EBL: 5mL-10mL Procedural Details Procedure Consent Obtained. Pre-Procedure Time Out. Identified patient by full name and date of as verbalized by the patient/guarantor. Does the consent match the physician's order: Yes. Accurate & Complete Informed Consent: Yes. Inpatient/Outpatient History & Physical on Chart: Yes. If H&P is completed, is and addenduem needed: No. Visualize and Verify Site with Patient/Guarantor: N/A. Relevant Radiology Images available: Yes. [facility] Clinical Fraility Score: 3: Managing Well. 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 Chest Pain Symptom Assessment: Atypical Angina. Cardiovascular Instability: Yes, if yes, Hemodynamic Instability. Correct patient, site and procedure confirmed by cath team. The risks, benefits, and alternatives of sedation and/or procedure were discussed by physician. The patient agrees to continue. Procedure started. PERRLA. 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 Lungs clear x 5 lobes. IV Site on Arrival: 20 gauge in the left anticubital. IV Fluids: 0.9% NaCl at KVO. 200 mL infused prior to r and d lab technician. Pre Procedural Pulses: bilateral posterior tibial was 3+. Pre Procedural Pulses: bilateral dorsalis pedis was 3+. Oxygen started at 2liters/min via nasal canula. bilateral groins was prepped with chloroprep then draped in the usual sterile fashion. Physician notified. Patient's family in the r and d lab technician waiting room. Dr. Shaw will update at the completion of the procedure. Equipment: 6F - Femoral. Cardiac Cath Pack. ACIST Manifold Kit Model BT 2000. Heparinized Saline (2 units/mL), 1000 mL bag. Kit, Micropuncture. Physician arrived. Baseline sample Acquired. HR: 105 BPM. Neosynepherine at 2mcg/min on arrival to the r and d lab technician. Physician scrubbed in. Immediate Pre-Procedure Time Out. Correct Patient: Yes; Correct Procedure: Yes; Correct Site: Yes; Correct Patient Position: Yes; Correct Supplies: Yes; Dried Flammable Prep: Yes; Blood Products Available: N/A;. Lidocaine 1% infiltrated to the right groin. Arterial access obtained with micropuncture set. A 5 [place] JL4 catheter in over wire. Catheter removed over the standard wire. A 5 [place] JR4 catheter in over wire. Multiple views taken of right & left coronary artery. Catheter removed over the standard wire. A 5 [place] Angled Pig catheter in over wire. Aortogram performed in VIRGEN @ 10 mL/second for a total of 30 mL. Catheter redirected to the LV. EDP Sample taken: LV 95/2,27; HR: 97 BPM; SpO2: 100%. Pullback taken: LV 93/4,27; AO 89/67(74); Mean: 11mmHg, Peak to Peak: 4mmHg, SEP: 11sec/min; HR: 98 BPM; SpO2: 100%. Catheter removed over the standard wire. Dr. Shaw reviewing with Dr. Nolen. Lidocaine 1% infiltrated to the right groin. Venous access obtained. [place] catheter in. 0.025 swan wire in to advance the swan. [place] wire out. [place] out. A 20 gauge IV was started in the right brachial using aseptic technique to use for RHC. Lidocaine 1% infiltrated to the right brachial. Wire in the right brachial vein. [place] catheter inserted. 0.025 swan wire in to advance the swan. [place] wire out. Oximetry samples were obtained. Normal venous range: 60-85%. Normal arterial range: 95-100%. Pressure measurements obtained. [place] out. A Right femoral angiogram was performed to determine safe placement of closure device. Dr. Shaw scrubbed out. A Suture was successful obtaining hemostatsis at the Right Femoral artery insertion site. A Suture was successful obtaining hemostatsis at the Right Femoral vein insertion site. A Manual Compression was successful obtaining hemostatsis at the Right Brachial Vein insertion site. Right femoral arterial and right femoral venous sheaths sutured into position with 2-0 silk and sterile 4x4's and Op-site applied over the site. No oozing or signs and symptoms of hematoma noted. Arterial sheath flushed and connected to tranducer and pressure bag with heparinized saline. Right femoral venous sheath flushed. Right brachial venous sheath removed and manual pressure held until hemostasis was achieved. Sterile 4x4 and Op-site applied to the puncture site. No oozing or hematoma noted. Post sheath removal instructions were given and the patient verbalized understanding. Post Procedure: Pulses reassessed and unchanged. PERRLA. 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 No VTE prophylaxis required. Medication's Wasted: Lidocaine 1% = 2 mL. Medication's Wasted: Heparin = 4000 units. Medication's Wasted: Other = Fenatnyl 75 mcg. Total IV fluids: 127 mL. Post-op diagnosis: Non-ischemic cardiomyopathy. Complications: none. Estimated blood loss: 5mL-10mL. Responsiveness - Normal response to verbal stimuli; alert and oriented, PERRLA. Airway - Unaffected, no intervention required; spontaneous ventilation. Circulation: W/N/L, pulses unchanged. Nausea/Vomiting: No. A 16Fr cho catheter was inserted without resistance maintaining sterile technique. Bag to gravity with clear urine returning. Vital chart was stopped. Procedure completed. Patient transferred by bed to ICU. Access Site Site: Right Femoral artery Sheath Size: 6 Fr Hemostasis Method: Suture Hemostasis Success: Successful Site: Right Femoral vein Sheath Size: 6 Fr Hemostasis Method: Suture Hemostasis Success: Successful Site: Right Brachial Vein Sheath Size: 6 Fr Hemostasis Method: Manual Compression Hemostasis Success: Successful Procedure Medications Start: 12:13 PM Stop: 12:13 PM Medication: Versed Amount: 1 mg Route: I.V. Start: 12:15 PM Stop: 12:15 PM Medication: Fentanyl Amount: 25 mcg Route: I.V. Start: 12:19 PM Stop: 12:19 PM Medication: Versed Amount: 1 mg Route: I.V. Start: 12:51 PM Stop: 12:51 PM Medication: Versed Amount: 1 mg Route: I.V. Start: 1:06 PM Stop: 1:06 PM Medication: Versed Amount: 1 mg Route: I.V. I, the attending physician, have reviewed and verified all procedure medications. Yes, all medications given per verbal order History/Risk Factors Hypertension: No Dyslipidemia: No Peripheral Arterial Disease (PAD): No Myocardial Infarction (DE): No Obesity: No Renal Disease: No Tobacco Use: Current/Recent(w/in 1 year) Prior Interventions PCI: No CABG: No Valve Surgery: No Report Signatures Finalized by Jordin Shaw MD on 05/08/2023 07:15 PM
--- NOTE | 2023-04-28 12:02 | PC.NURSE ---
levophed started per protocol inital rate started per protocol 2 mcg/min. pt taken to bottle label inspector now via bed. recent VS BP-80/53, MAP 62, HR-108, ST. primary nurse Reagan is at bedside giving bottle label inspector nurses bedside report.
--- NOTE | 2023-04-28 12:03 | P.CONIM_ITS ---
Providers/Reason For Consult Consulting Physician/Specialty*: Jordin Shaw MD/ Cardiology Reason for Consult*: Unstable angina/ LV dysfunction Requesting Physician: Dr Nolen Attending Physician: Jason Nolen MD History of Present Illness History of Present Illness Adair Gardiner is a 42 year old male with no significant prior cardiac history who has been having on and off chest discomfort episodes for the last 1 month. He presented today with shortness of breath and chest pain. Echocardiogram shows severely reduced LV systolic function. His urine drug screen is positive for amphetamine and marijuana. Troponins have been negative. Patient is currently hypotensive. EKG showing dynamic ST t wave changes. Review of Systems General: Reports: 10 or more systems reviewed and unremarkable except in HPI and below Card: Reports: chest pain and swelling of feet/ankles Resp: Reports: dyspnea; Denies: productive cough, non-productive cough, wheezing or hemoptysis GI: Reports: abdominal pain; Denies: nausea or vomiting Medications/Allergies Home Medications Medication Instructions Recorded Confirmed Last Taken Type aspirin 81 mg chewable tablet 81 mg PO DAILY 04/28/23 04/28/23 Unknown History krill oil 500 mg capsule 500 mg PO TID 04/28/23 04/28/23 Unknown History Allergies Allergy/AdvReac Type Severity Reaction Status Date / Time No Known Allergies Allergy Verified 04/27/23 23:31 Current Medications Generic Name Dose Route Start Last Admin Trade Name Freq PRN Reason Stop Dose Admin Acetaminophen 650 mg 04/28/23 08:14 04/28/23 10:23 Acetaminophen 325 Mg Tablet PO 650 mg Q6H PRN Administration Mild/Mod Pain Or Temp >/= 101 Aspirin 81 mg 04/28/23 09:40 04/28/23 10:20 Aspirin 81 Mg Ec Tablet PO 81 mg DAILY MIRELLA Administration Ceftriaxone Sodium 1,000 mg/ 50 mls @ 100 mls/hr 04/28/23 08:15 04/28/23 10:20 Sodium Chloride IV 100 mls/hr Q24H MIRELLA Administration Protocol Azithromycin 500 mg/ Sodium 250 mls @ 250 mls/hr 04/28/23 08:15 04/28/23 10:21 Chloride IV 250 mls/hr Q24H MIRELLA Administration Protocol Norepinephrine Bitartrate 4 mg 254 mls @ 0 mls/hr 04/28/23 11:45 04/28/23 11:59 / Dextrose IV 2 mcg/min .Q0M MIRELLA 7.62 mls/hr Administration Protocol Per Protocol Lorazepam 0.5 mg 04/28/23 11:08 04/28/23 11:21 Lorazepam 2 Mg/Ml Inj 1 Ml IVP 0.5 mg ONCE PRN Administration ANXIETY Ondansetron HCl 4 mg 04/28/23 08:14 04/28/23 11:21 Ondansetron 2 Mg/Ml Sdv 2 Ml IVP 4 mg Q6H PRN Administration vomiting, or N/V if npo Pantoprazole Sodium 40 mg 04/28/23 09:00 04/28/23 10:[address] 40 Mg Tablet PO 40 mg DAILY MIRELLA Administration PFSH Acute PFSH: Medical History History of kidney stones Mitral valve prolapse Surgical History History of hand surgery Family History Other CAD (coronary artery disease) Social History Smoking and tobacco status: current every day smoker Alcohol intake: current Alcohol intake frequency: few times a month Substance/Drug Use: former Vitals/I&O/Wt Last Vital Signs Temp 97.6 F 04/28/23 08:00 Pulse 93 04/28/23 08:00 Resp 18 04/28/23 08:00 BP 101/67 04/28/23 08:00 Pulse Ox 96 04/28/23 08:00 O2 Del Method Room Air 04/28/23 08:00 04/27/23 04/28/23 04/28/23 22:59 06:59 14:59 Intake Total 480 / 480 840 / 840 Balance 480 / 480 840 / 840 Weight last 48 hrs Weight 160 lb Physical Exam Narrative: GENERAL: Patient is drowsy [] NECK: No jugular vein distension. [] HEENT: No cyanosis. No icterus. No pallor. [] HEART: Tachycardia LUNGS: Mild crakcles bilaterally CENTRAL NERVOUS SYSTEM: Grossly nonfocal. [] EXTREMITIES: Lower extremities with 1+ edema bilaterally. Data 04/29/23 04:26 04/29/23 04:26 Micro: Microbiology 04/28/23 09:00 Blood Culture - Preliminary Blood SPECIMEN COLLECTED 04/28/23 08:57 Blood Culture - Preliminary Blood SPECIMEN COLLECTED A&P Assessment and plan (1) Chest pain: (2) Congestive heart failure (CHF): (3) Pneumonia: (4) Positive urine drug screen: Plan Patient has presented with chest pain symptoms and shortness of breath. LV systolic function is severely reduced. His urine drug screen is positive however given ongoing chest pain with dynamic EKG changes and ST depressions, we will emergently perform left heart cath. We will also obtain right heart cath as he is hypotensive. He is likely developing developing cardiogenic shock. NPO for now Thank you for involving us with care of this patient. We will continue to prasanna mir. Please call with questions. Consult Attestations Medical Necessity Statement: Care expected to cross 2 midnights. Coding Level of Care Code Acute Code for [facility] Diagnoses Chest pain R07.9 Congestive heart failure (CHF) I50.9 Pneumonia J18.9 Positive urine drug screen R82.5
[2023-04-28 13:11] LABS: Alveolar-Arterial Oxygen Gradi 3.1 mmHg (5-10); Blood Gas Operator Identificat GD; Blood Gas Sample Site Not specified; Blood Gas Sample Type Arterial; Carboxyhemoglobin 1.1 %THgb (0.4-20.1); HGB O2 Sat 93.6 % (95-100); Methemoglobin 0.3 % (0.4-1.5); Total Hemoglobin 16.3 g/dL (14-18)
[2023-04-28 13:13] LABS: Alveolar-Arterial Oxygen Gradi 7.1 mmHg (5-10); Arterial Blood Gas Hematocrit 50.2 % (42-52); Blood Gas Operator Identificat GD; Blood Gas Sample Site Not specified; Carboxyhemoglobin 1.6 %THgb (0.4-20.1); HGB O2 Sat 64.2 % (95-100); Methemoglobin 0.4 % (0.4-1.5); Total Hemoglobin 16.4 g/dL (14-18)
[2023-04-28 13:14] LABS: Blood Gas Sample Type Not specified
[2023-04-28 13:15] LABS: Oxygen Device ROOM AIR; Oxygen Device ROOMAIR
[2023-04-28] MEDS: DOBUTamine drip 500 MG/250 ML PREMIX 10.89 MG IV (14:01)
[2023-04-28 14:30] LABS: Troponin T (5th) Once 31 ng/L (0-15)
--- NOTE | 2023-04-28 16:23 | PC.NURSE ---
Arterial and venous sheath removal Arterial pull started at 1600 venous pull started at 1612 Removal end at 1620 Patient tolerated well no s/s of hematoma or internal bleeding noted V/s remain stable through out removal
--- NOTE | 2023-04-28 16:52 | W.PM.OPSUD ---
Surgery/Procedure H&P Update DATE OF PROCEDURE: April 28, 2023 DATE H&P PERFORMED: 04/28/23 H&P UPDATE INFORMATION: I have reviewed H&P completed within last 30 days, I have examined patient prior to procedure and No changes to prior documentation PREOP DIAGNOSIS: LV dysfunction/Worsening angina PRIMARY INDICATION FOR PROCEDURE: LV dysfunction/Worsening angina PLANNED PROCEDURE: Operation Date: 04/28/23 12:00 Proposed Procedures Right heart cath/Left heart cath with possible percutaneous coronary intervention - Jordin Shaw M.D PATIENT REASSESSED PRIOR TO SEDATION, WITH NO CHANGE NOTED: Yes PHYSICAL EXAM: alert, oriented x 3, clear to auscultation bilaterally and regular rate & rhythm AIRWAY EVAL/ANESTHESIA PLAN: normal airway, ASA III, Local Anesthesia, Risks, benefits & alternatives of sedation and/or procedure discussed and Patient agrees to continue as planned ADDITIONAL INFORMATION: Moderate sedation
[2023-04-28] MEDS: morphine 4 mg/mL SDV 1 mL 2 MG IVP (20:19)
--- NOTE | 2023-04-28 20:30 | ECG_ITS ---
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 Measurements Intervals Talent Rate: 97 P: 21 UT: 152 QRS: -65 QRSD: 117 T: 151 QT: 403 QTc: 514 Interpretive Statements SINUS RHYTHM LEFT ATRIAL ENLARGEMENT [-0.15mV P-WAVE IN V1/V2] POSSIBLE RIGHT VENTRICULAR CONDUCTION DELAY [RSR (QR) IN V1/V2] LEFT ANTERIOR FASCICULAR BLOCK [QRS AXIS <= -45, QR IN I, RS IN II] LEFT VENTRICULAR HYPERTROPHY AND ST-T CHANGE [VOLTAGE CRITERIA PLUS ST/T ABNORMALITY] Compared to ECG 04/28/2023 11:12:10 Left ventricular hypertrophy now present ST (T wave) deviation now present Sinus tachycardia no longer present Myocardial infarct finding no longer present T-wave abnormality no longer present Possible ischemia no longer present Electronically Signed On 04-29-2023 6:41:39 CDT by Therese Feliciano M.D. [id number]
--- NOTE | 2023-04-28 21:25 | PC.NURSE ---
Patient complaining of chest pain at [address] Tuttle contacted and PRN morphine given per Dr. Tuttle's orders.
[2023-04-29] VITALS (90 sets, daily range): BP systolic 85–117; BP diastolic 46–82; PULSE 82–117; RESP 9–28; TEMP 36.4–36.8; O2SAT 86–99
--- NOTE | 2023-04-29 | PC.NURSE ---
Hallucinations Patient stating that he is seeing ants crawl all over the room curtains and that there are so many ants that they are covering a little boy. Additionally, he states that he is very concerned with a concrete pillar that is moving on wheels and is about to run into his barn. Patient yelling out I need help in here. This pillar is going to crush me as well as attempting to get out of bed. Reorientation and redirection provided with limited success. Dr. Lam on unit; order received for a 1:1 sitter.
[2023-04-29] MEDS: morphine 4 mg/mL SDV 1 mL 2 MG IVP (01:13)
[2023-04-29 05:00] LABS: Basophils # 0.1 10^3/uL (0.0-0.1); Basophils % 0.8 %; Eosinophils # 0.1 10^3/uL (0.0-0.8); Eosinophils % 1.6 %; Hematocrit 45.4 % (42.0-52.0); Hemoglobin 15.2 g/dL (11.7-16.6); Lymphocytes # 1.8 10^3/uL (0.8-4.8); Lymphocytes % 23.2 %; Mean Corpuscular HGB Conc 33.5 g/dL (30.0-36.0); Mean Corpuscular Hemoglobin 30.5 pg (28.0-34.0); Monocytes # 0.7 10^3/uL (0.2-0.9); Monocytes % 9.6 %; Neutrophils # 4.99 10^3/uL (1.8-7.7); Neutrophils % 64.5 %; Nucleated Red Blood Cells % 0 %; Platelet Count 212 10^3/cmm (130-400); Red Blood Count 4.99 10^6/uL (4.1-5.3); White Blood Count 7.7 10^3/uL (4.0-10.0)
[2023-04-29 05:21] LABS: Alanine Aminotransferase 219 U/L (0-41); Albumin Level 3.6 g/dL (3.5-5.2); Alkaline Phosphatase 139 U/L (40-130); Anion Gap 11.6 (5-19); Aspartate Amino Transferase 97 U/L (0-40); Blood Urea Nitrogen 21 mg/dL (6-20); Calcium 7.9 mg/dL (8.5-10.5); Carbon Dioxide 28 mmol/L (22-29); Chloride 100 mmol/L (98-107); Globulin 1.8 g/dL (1.3-4.6); Glomerular Filtration Rate 66.7 mL/min (90-130); Glucose 94 mg/dL (65-115); Osmolality Calculated 285 mOsm/kg (285-295); Potassium 3.6 mmol/L (3.5-5.1); Sodium 136 mmol/L (136-145); Total Bilirubin 0.8 mg/dL (0.15-1.2); Total Protein 5.4 g/dL (6.6-8.7)
[2023-04-29 05:26] LABS: Chol HDL Ratio 4.26 mg/dL (1.0-5.00); Cholesterol 179 mg/dL (0-200); HDL Cholesterol 42 mg/dL (60-100); LDL Cholesterol Calculated 120 mg/dL (50-129); LDL HDL Ratio 2.86 RATIO (0.00-3.22); Triglycerides 85 mg/dL (0-150)
[2023-04-29] MEDS: enoxaparin 40 mg/0.4 mL Syringe SUBCUT (06:14)
[2023-04-29] MEDS: pantoprazole DR 40 mg Tablet PO (08:27)
[2023-04-29] MEDS: doxycycline 100 mg Tablet PO ×2 (08:27→17:24)
[2023-04-29] MEDS: aspirin 81 mg EC Tablet PO (08:27)
[2023-04-29] MEDS: cefTRIAXone 1,000 MG in sodium chloride 0.9% (plus) 50 ML 100 MG IV (08:28)
[2023-04-29] MEDS: FUROsemide 10 mg/mL SDV 4mL 40 MG IVP ×2 (08:28→21:26)
[2023-04-29] MEDS: metoprolol tartrate 25 mg Tablet 12.5 MG PO ×2 (09:57→21:25)
--- NOTE | 2023-04-29 10:09 | PM.PN ---
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 No obstructive CAD seen. Has diuresed well with dobutamine. No chest pain today. Breathing has improved. Vitals/I&O/Wt Last Vital Signs Temp 98.6 F 04/28/23 21:40 Pulse 99 04/29/23 08:45 Resp 14 04/29/23 01:55 BP 106/77 04/29/23 08:45 Pulse Ox 95 04/29/23 08:45 O2 Del Method Nasal Cannula 04/28/23 11:47 04/28/23 04/29/23 04/29/23 22:59 06:59 14:59 Intake Total 860 / 2016.510 504.715 / 504.715 Output Total 1375 / 2700 250 / 2950 Balance -515 / -683.490 -250 / -933.490 504.715 / 504.715 Weight last 48 hrs Weight 158 lb Weight 160 lb Physical Exam Narrative: GENERAL: Patient is drowsy [] NECK: No jugular vein distension. [] HEENT: No cyanosis. No icterus. No pallor. [] HEART: Tachycardia LUNGS: Mild crakcles bilaterally CENTRAL NERVOUS SYSTEM: Grossly nonfocal. [] EXTREMITIES: Lower extremities with 1+ edema bilaterally. Data 04/29/23 04:26 04/29/23 04:26 Micro: Microbiology 04/28/23 09:00 Blood Culture - Preliminary Blood NEGATIVE TO DATE 04/28/23 08:57 Blood Culture - Preliminary Blood NEGATIVE TO DATE A&P Assessment and plan (1) Chest pain: (2) Congestive heart failure (CHF): (3) Pneumonia: (4) Positive urine drug screen: (5) Cardiogenic shock: Plan Patient is improving. Will down titrate dobutamine today and eventually stop it. Off levophed. We will start low dose metoprolol 12.5mg BID. Downtitrate diuretic therapy. Thank you for involving us with care of this patient. We will continue to follow. Please call with questions. Attestations Medical Necessity Statement*: Care expected to cross 2 midnights. Coding Level of Care Code Acute Code for [facility] Diagnoses Chest pain R07.9 Congestive heart failure (CHF) I50.9 Pneumonia J18.9 Positive urine drug screen R82.5 Cardiogenic shock R57.0
--- NOTE | 2023-04-29 10:31 | PM.PN ---
Subjective Subjective: dAair reports he feels little bit better. States he still coughs some when he takes a deep breath. No chest discomfort right now. I reviewed his angiogram findings with him. He has been tolerating dobutamine. Norepinephrine has been weaned off. Medications: Reviewed: Yes Vitals/I&O/Wt Last Vital Signs Temp 98.6 F 04/28/23 21:40 Pulse 99 04/29/23 08:45 Resp 14 04/29/23 01:55 BP 106/77 04/29/23 08:45 Pulse Ox 95 04/29/23 08:45 O2 Del Method Nasal Cannula 04/28/23 11:47 04/28/23 04/29/23 04/29/23 22:59 06:59 14:59 Intake Total 860 / 2016.510 504.715 / 504.715 Output Total 1375 / 2700 250 / 2950 Balance -515 / -683.490 -250 / -933.490 504.715 / 504.715 Weight last 48 hrs Weight 71.668 kg Weight 72.575 kg Physical Exam Narrative: General exam no distress Neck is supple Cardiovascular regular rate and rhythm Lungs diminished breath sounds at the bases. A few scattered crackles Abdomen is soft, positive bowel sounds Extremities no cyanosis clubbing or edema, cap refill brisk Data 04/29/23 04:26 04/29/23 04:26 Micro: Microbiology 04/28/23 09:00 Blood Culture - Preliminary Blood NEGATIVE TO DATE 04/28/23 08:57 Blood Culture - Preliminary Blood NEGATIVE TO DATE A&P Assessment and plan (1) Congestive heart failure (CHF): Patient presents with symptoms consistent with acute congestive heart failure. TSH was normal Echocardiogram demonstrated an EF around 25%, severe diffuse hypokinesis, moderate MR Currently receiving Lasix 40 mg IV every 12 hours, and dobutamine drip. He diuresed approximately 1 L. Angiogram was performed yesterday which demonstrated no flow-limiting lesions. 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 Plan on continuing diuresis and dobutamine, with repeat laboratory tomorrow. (2) Pneumonia: Concern of pneumonia on x-ray. Patient has had some chills and sweats Continue Rocephin. Change Zithromax to doxycycline COVID-negative Discussed with him this could also be vaping injury. Discussed with him not to vape, and offered nicotine patch. He refused a nicotine patch. (3) Polycythemia: Had polycythemia on admission. This could be secondary to tobacco. Doubt polycythemia rubra vera. We will continue to follow. This has improved. He also admitted to testosterone use. (4) Transaminitis: Significant transaminitis Slight gallbladder wall thickening, doubt cholecystitis Hepatitis panel negative. Transaminitis improving HIV negative (5) Hyperglycemia: Hemoglobin A1c was normal (6) Positive urine drug screen: Positive urine drug screen for marijuana and amphetamines. Patient denies amphetamine use Plan Full code Lovenox for DVT prophylaxis Attestations Medical Necessity Statement*: Needs continued hospital stay, for IV dobutamine, further diuresis with his severe heart failure. Diagnoses Congestive heart failure (CHF) I50.9 Pneumonia J18.9 Polycythemia D75.1 Transaminitis R74.01 Hyperglycemia R73.9 Positive urine drug screen R82.5 Time Spent (min) 24
[2023-04-29] MEDS: LORazepam 0.5 mg Tablet PO ×2 (11:52→21:25)
[2023-04-29] MEDS: DOBUTamine drip 500 MG/250 ML PREMIX 5.44 MG IV (11:52)
--- NOTE | 2023-04-29 12:48 | PC.NURSE ---
Report called to CSU nurseDevante Nayak. Pt to be transferred via wheelchair to room 104 accompanied by this nurse, , and daughter. Belongings placed at bedside.
[2023-04-30] VITALS (13 sets, daily range): BP systolic 97–109; BP diastolic 55–83; PULSE 81–94; RESP 14–26; TEMP 36.4–36.7; O2SAT 94–99; BMI 20.5
--- NOTE | 2023-04-30 00:06 | ECG_ITS ---
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 Measurements Intervals [place] Rate: 101 P: 47 MD: 148 QRS: -65 QRSD: 117 T: 128 QT: 373 QTc: 485 Interpretive Statements SINUS TACHYCARDIA LEFT ATRIAL ENLARGEMENT [-0.15mV P-WAVE IN V1/V2] LEFT ANTERIOR FASCICULAR BLOCK [QRS AXIS <= -45, QR IN I, RS IN II] LEFT VENTRICULAR HYPERTROPHY AND ST-T CHANGE [VOLTAGE CRITERIA PLUS ST/T ABNORMALITY] ANTERIOR MYOCARDIAL INFARCTION , PROBABLY RECENT [40+ ms Q WAVE AND/OR ST/T ABNORMALITY IN V3/V4] ACUTE PR Compared to ECG 04/28/2023 20:06:45 Myocardial infarct finding now present Sinus rhythm no longer present ST (T wave) deviation still present Electronically Signed On 04-30-2023 20:02:32 CDT by Alicia Tuttle M.D. [id number]
[2023-04-30] MEDS: morphine 4 mg/mL SDV 1 mL 2 MG IVP (00:27)
--- NOTE | 2023-04-30 01:02 | PC.NURSE ---
Patient complaining of chest heaviness and pain between shoulder blades an 8 on scale 0-10. EKG was performed and morphine administered per PRN order. Doctor notified.
--- NOTE | 2023-04-30 01:11 | PC.NURSE ---
Telephoned Dr Tuttle of recurring chest pain. No orders received at this time. Will continue to monitor.
--- NOTE | 2023-04-30 01:13 | XRR_ITS ---
PROCEDURE INFORMATION: Exam: XR Chest Exam date and time: 04/30/2023 1:32 AM Age: 42 years old Clinical indication: Pain; Chest pressure; Additional info: Chest pain TECHNIQUE: Imaging protocol: Radiologic exam of the chest. Views: 1 view. COMPARISON: CR (CHEST, ) 04/27/2023 11:39 PM FINDINGS: Lungs: Pulmonary opacity adjacent to the cardiac apex is unchanged. Pleural spaces: Pleural effusions seen on CT is not appreciated on plain film. No pneumothorax on either side. Heart/Mediastinum: Enlarged cardiac silhouette is unchanged from prior. Bones/joints: Age appropriate. XR/XR chest 1V portable [id number] IMPRESSION: Stable cardiomegaly. Unchanged left basilar airspace opacity. Right pleural effusion seen on recent CT is not visible on today's plain film.
[2023-04-30] MEDS: albumin 25 G/100 ML BAG 60 G IV (01:47)
[2023-04-30] MEDS: ondansetron 2 mg/ML SDV 2 mL 4 MG IVP (02:02)
[2023-04-30] MEDS: HYDROmorphone 1 mg/mL INJ 1 mL 0.2 MG IVP (02:03)
--- NOTE | 2023-04-30 02:43 | PC.NURSE ---
Patient stated about 30 minutes after I am given the metoprolol, I start to feel hot all over and my chest is very heavy.
[2023-04-30 02:46] LABS: Troponin T (5th) Once 30 ng/L (0-15)
--- NOTE | 2023-04-30 03:08 | PC.NURSE ---
Patient vomited into trash can at 0300, states that he feels much better. Zofran was administered at 0202.
[2023-04-30] MEDS: metoclopramide 5 mg/mL SDV 2 mL IVP (03:54)
--- NOTE | 2023-04-30 04:08 | PC.NURSE ---
Patient stated that he was starting to feel nauseous again, Dr was notified, Reglan was administered per Doctors orders.
[2023-04-30 06:02] LABS: Basophils # 0.1 10^3/uL (0.0-0.1); Eosinophils # 0.1 10^3/uL (0.0-0.8); Eosinophils % 1.6 %; Hematocrit 45.1 % (37-53); Lymphocytes # 1.5 10^3/uL (0.8-4.8); Lymphocytes % 19.1 %; Mean Corpuscular HGB Conc 33.3 g/dL (30-55); Mean Corpuscular Volume 90.2 fl (82-101); Mean Platelet Volume 10.9 fL (7.4-10.4); Monocytes # 0.5 10^3/uL (0.2-0.9); Monocytes % 6.5 %; Neutrophils # 5.47 10^3/uL (1.8-7.7); Neutrophils % 71.5 %; Nucleated Red Blood Cells % 0 %; Platelet Count 207 10^3/cmm (157-399); White Blood Count 7.65 10^3/uL (3.29-11.43)
[2023-04-30] MEDS: enoxaparin 40 mg/0.4 mL Syringe SUBCUT (06:16)
[2023-04-30 06:28] LABS: Alanine Aminotransferase 160 U/L (0-41); Alkaline Phosphatase 126 U/L (40-130); Aspartate Amino Transferase 52 U/L (0-40); Blood Urea Nitrogen 25 mg/dL (6-20); Calcium 8.3 mg/dL (8.5-10.5); Carbon Dioxide 29 mmol/L (22-29); Chloride 100 mmol/L (98-107); Globulin 1.9 g/dL (1.3-4.6); Glomerular Filtration Rate 66.7 mL/min (90-130); Glucose 104 mg/dL (65-115); Osmolality Calculated 291 mOsm/kg (285-295); Sodium 138 mmol/L (136-145); Total Bilirubin 0.5 mg/dL (0.15-1.2); Total Protein 5.9 g/dL (6.6-8.7)
[2023-04-30] MEDS: aspirin 81 mg EC Tablet PO (08:17)
[2023-04-30] MEDS: doxycycline 100 mg Tablet PO ×2 (08:17→18:33)
[2023-04-30] MEDS: pantoprazole DR 40 mg Tablet PO (08:17)
[2023-04-30] MEDS: lidocaine 5% Patch 1 PATCH TOPICAL (08:18)
[2023-04-30] MEDS: cefTRIAXone 1,000 MG in sodium chloride 0.9% (plus) 50 ML 100 MG IV (08:18)
[2023-04-30] MEDS: FUROsemide 10 mg/mL SDV 4mL 40 MG IVP ×2 (08:18→21:30)
[2023-04-30] MEDS: metoprolol tartrate 25 mg Tablet 12.5 MG PO ×2 (08:21→09:59)
--- NOTE | 2023-04-30 08:26 | P.PN_ITS ---
Subjective Subjective: Patient is stable. Still has some shortness of breath. Diuresing well. Vitals/I&O/Wt Last Vital Signs Temp 97.8 F 04/30/23 04:00 Pulse 92 04/30/23 05:15 Resp 19 H 04/30/23 04:00 BP 109/71 04/30/23 04:00 Pulse Ox 95 04/30/23 04:00 O2 Del Method Nasal Cannula 04/30/23 04:00 O2 Flow Rate 2 04/29/23 11:17 04/29/23 04/30/23 04/30/23 22:59 06:59 14:59 Intake Total 283.973 / 800.293 340 / 1140.293 Output Total 950 / 2450 450 / 2900 Balance -666.027 / -1649.707 -110 / -1759.707 Weight last 48 hrs Weight 159 lb 7 oz Weight 158 lb Physical Exam Narrative: GENERAL: Patient is drowsy [] NECK: No jugular vein distension. [] HEENT: No cyanosis. No icterus. No pallor. [] HEART: Tachycardia LUNGS: Mild crakcles bilaterally CENTRAL NERVOUS SYSTEM: Grossly nonfocal. [] EXTREMITIES: Lower extremities with 1+ edema bilaterally. Data 04/30/23 05:39 04/30/23 05:39 Micro: Microbiology 04/28/23 01:45 Urine Culture - Preliminary Urine,Clean Catch 04/28/23 09:00 Blood Culture - Preliminary Blood NEGATIVE TO DATE 04/28/23 08:57 Blood Culture - Preliminary Blood NEGATIVE TO DATE A&P Assessment and plan (1) Chest pain: (2) Congestive heart failure (CHF): (3) Pneumonia: (4) Positive urine drug screen: (5) Cardiogenic shock: Plan We will uptitrate metoprolol to 25 mg BID. He is diuresing well. Continue Lasix. Close I and Os. Moderate mitral regurgitation noted on the echo Thank you for involving us with care of this patient. We will continue to follow. Please call with questions. Attestations Medical Necessity Statement*: Care expected to cross 2 midnights. Coding Level of Care Code Acute Code for [facility] Diagnoses Chest pain R07.9 Congestive heart failure (CHF) I50.9 Pneumonia J18.9 Positive urine drug screen R82.5 Cardiogenic shock R57.0
[2023-04-30 09:46] LABS: Iron 43 ug/dL (59-158); Percent Saturation 13.7 % (20-50); Total Iron Binding Capacity 312 mcg/dl; Unsaturated Iron Binding 269 ug/dL (112-347)
[2023-04-30 10:03] LABS: Vitamin B12 971 pg/mL (232-1245)
[2023-04-30] MEDS: LORazepam 0.5 mg Tablet PO (10:05)
--- NOTE | 2023-04-30 14:49 | PC.NURSE ---
verified with Sharmin zhu of [employer] she informed she received the faxed papers. she will call back for more questions.
--- NOTE | 2023-04-30 15:16 | PC.NURSE ---
pt stated he urinated in the urinal and emptied it himself 700 cc
[2023-04-30 15:19] LABS: Glucose Point of Care 127 mg/dL (70-110)
[2023-04-30] MEDS: HYDROmorphone 1 mg/mL INJ 1 mL 0.5 MG IVP (15:24)
[2023-04-30] MEDS: ALPRAZolam 0.5 mg Tablet PO ×2 (15:24→23:32)
--- NOTE | 2023-04-30 18:02 | P.PN_ITS ---
Subjective Subjective: Hospital course, labs appreciated. On examination patient lying comfortably in bed without any difficulty in breathing. Denies any chest pain. Vitals appreciated. Patient did have an episode of chest pain radiating to back associated with tachypnea for which he received IV Dilaudid last night after which symptoms subsided. This morning on examination vitals were stable, saturating well on 2 L of oxygen supplementation. Blood work appreciated For stable CBC, CMP showing a stable creatinine, stable electrolytes with subtle improvement in liver functions. Medications: Reviewed: Yes Vitals/I&O/Wt Last Vital Signs Temp 97.6 F 04/30/23 16:00 Pulse 93 04/30/23 16:00 Resp 17 04/30/23 16:00 BP 104/76 04/30/23 16:00 Pulse Ox 96 04/30/23 16:00 O2 Del Method Nasal Cannula 04/30/23 16:00 O2 Flow Rate 2 04/30/23 10:06 04/30/23 04/30/23 04/30/23 06:59 14:59 22:59 Intake Total 340 / 1140.293 870 / 870 Output Total 450 / 2900 700 / 700 Balance -110 / -1759.707 870 / 870 -700 / 170 Weight last 48 hrs Weight 72.32 kg Weight 71.668 kg Physical Exam Narrative: General exam no distress, frail appearing, thin built Neck is supple Cardiovascular regular rate and rhythm, PSM at apex soft 2/6 Lungs diminished breath sounds at the bases. A few scattered crackles Abdomen is soft, positive bowel sounds Extremities no cyanosis clubbing or edema, cap refill brisk Data 04/30/23 05:39 04/30/23 05:39 Micro: Microbiology 04/28/23 01:45 Urine Culture - Final Urine,Clean Catch A&P Assessment and plan (1) Congestive heart failure (CHF): 2/2 NICCM. 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 A1c, TSH was normal. Urine drug screen found to be positive for amphetamines though patient denies using amphetamines or any illicit drugs recently. On discussing in detail with the patient regarding possibility of amphetamines being the cause for nonis chemic cardiomyopathy he gets upset stating that he has not used meth in a long time. He does give history of using new herbal products which she got off the Internet for last couple of months along with ranitidine for last few months. He states he was told in the past that rantidine can cause him to have false amphetamine drug screen positive. It was discussed in detail that what ever being the cause of his nonischemic cardiomyopathy he needs to avoid using the herbal products or the illicit drug abuse as much as possible along with taking regular medications at regular time for the possibility of improvement in cardiomyopathy. Patient verbalized understanding. Echocardiogram demonstrated an EF around 25%, severe diffuse hypokinesis, moderate MR. Fluid restriction up to 1500 cc. Strict input output charting. Continue with Lasix 40 mg IV daily for now. Patient achieving euvolemia. Weaned off dobutamine and Levophed. Monitor vitals. Monitor electrolytes while diuresing the patient with potassium to be kept around 4 and magnesium to be Around 2. Replete accordingly. Target mean blood pressure around 65. Will uptitrate heart failure targeted regimen gradually keeping vitals and mind. Hold off on increasing beta-zina for now. Continue with 12.5 mg twice daily. Gradually will increase Levophed to 25 mg twice daily and possibly add MIRA/ARB within the next 24 hours. Patient will be a candidate for LifeVest given EF of less than 35%. Case management has been alerted regarding the same. Appreciate cardiology recommendations. (2) Non-ischemic cardiomyopathy: (3) Pneumonia: Concern of pneumonia on x-ray. Patient has had some chills and sweats Continue Rocephin and doxycycline for overall 5-day course. We will plan to transition over to oral antibiotics in the next 24 hours. COVID-negative Discussed with him this could also be vaping injury. Discussed with him not to vape, and offered nicotine patch. He refused a nicotine patch. (4) Polycythemia: Had polycythemia on admission. This could be secondary to tobacco. Doubt polycythemia rubra vera. We will continue to follow. This has improved. He also admitted to testosterone use. (5) Transaminitis: Significant transaminitis most likely in setting of congestive hepatomegaly. Slight gallbladder wall thickening, doubt cholecystitis Hepatitis panel negative. Transaminitis improving HIV negative (6) Hyperglycemia: Hemoglobin A1c was normal (7) Positive urine drug screen: Positive urine drug screen for marijuana and amphetamines. Patient denies amphetamine use. Rest of the discussion as above. (8) Cardiogenic shock: Plan Full code Lovenox for DVT prophylaxis Discharge planning: Plan to discharge the next 24 to 48 hours as heart failure regimen is adjusted. Plan to discharge home. Patient will need follow-up with primary care as an outpatient along with other resources for heart failure and possibility of LifeVest. Case management has been alerted. Attestations Medical Necessity Statement*: Requires further hospitalization for management of nonischemic cardiomyopathy, congestive heart failure with resolution of cardiogenic shock while heart failure directed regimen is uptitrated Diagnoses Congestive heart failure (CHF) I50.9 Non-ischemic cardiomyopathy I42.8 Pneumonia J18.9 Polycythemia D75.1 Transaminitis R74.01 Hyperglycemia R73.9 Positive urine drug screen R82.5 Cardiogenic shock R57.0
[2023-04-30] MEDS: metoprolol tartrate 25 mg Tablet PO (21:30)
--- NOTE | 2023-04-30 22:57 | PC.NURSE ---
patient showered independently, tolerated well. Bed sheets were changed and room cleaned.
[2023-05-01] VITALS (9 sets, daily range): BP systolic 90–106; BP diastolic 66–77; PULSE 78–100; RESP 12–23; TEMP 36.6–37; O2SAT 97–98; BMI 20.4
[2023-05-01 06:19] LABS: Basophils # 0.1 10^3/uL (0.0-0.1); Basophils % 1.2 %; Eosinophils # 0.2 10^3/uL (0.0-0.8); Eosinophils % 3.5 %; Hematocrit 49.4 % (37-53); Lymphocytes # 2.4 10^3/uL (0.8-4.8); Lymphocytes % 35.6 %; Mean Corpuscular HGB Conc 33.6 g/dL (30-55); Mean Corpuscular Volume 92.3 fl (82-101); Mean Platelet Volume 10.9 fL (7.4-10.4); Monocytes # 0.6 10^3/uL (0.2-0.9); Monocytes % 8.2 %; Neutrophils # 3.48 10^3/uL (1.8-7.7); Neutrophils % 51.2 %; Nucleated Red Blood Cells % 0 %; Platelet Count 217 10^3/cmm (157-399); Red Blood Count 5.35 10^6/uL (3.85-5.65); Red Cell Distribution Width 11.9 % (12.1-15.1)
[2023-05-01] MEDS: enoxaparin 40 mg/0.4 mL Syringe SUBCUT (06:25)
--- NOTE | 2023-05-01 06:29 | PC.NURSE ---
patient stated he urinated in urinal and emptied it himself. 1000mL
[2023-05-01 06:47] LABS: Alanine Aminotransferase 138 U/L (0-41); Alkaline Phosphatase 124 U/L (40-130); Anion Gap 15.8 (5-19); Aspartate Amino Transferase 48 U/L (0-40); Blood Urea Nitrogen 27 mg/dL (6-20); Calcium 8.4 mg/dL (8.5-10.5); Carbon Dioxide 27 mmol/L (22-29); Chloride 99 mmol/L (98-107); Globulin 1.8 g/dL (1.3-4.6); Glomerular Filtration Rate 73.8 mL/min (90-130); Glucose 98 mg/dL (65-115); Osmolality Calculated 291 mOsm/kg (285-295); Potassium 3.8 mmol/L (3.5-5.1); Sodium 138 mmol/L (136-145); Total Bilirubin 0.7 mg/dL (0.15-1.2); Total Protein 5.8 g/dL (6.6-8.7)
[2023-05-01 06:48] LABS: Magnesium 2.1 mg/dL (1.7-2.3); Phosphorus 3.6 mg/dL (2.5-4.5)
[2023-05-01 07:03] LABS: Folate Level 12.9 ng/mL (4.5-32.2)
--- NOTE | 2023-05-01 07:53 | PM.PN ---
Subjective Subjective: Has shortness of breath. no chest pain. Vitals/I&O/Wt Last Vital Signs Temp 97.8 F 05/01/23 04:11 Pulse 78 05/01/23 06:00 Resp 14 05/01/23 04:11 BP 96/72 05/01/23 04:11 Pulse Ox 98 05/01/23 04:11 O2 Del Method Nasal Cannula 04/30/23 23:26 O2 Flow Rate 2 04/30/23 10:06 04/30/23 05/01/23 05/01/23 22:59 06:59 14:59 Intake Total 630 / 1500 Output Total 1300 / 1300 600 / 1900 Balance -670 / 200 -600 / -400 Weight last 48 hrs Weight 159 lb 3 oz Weight 159 lb 7 oz Physical Exam Narrative: GENERAL: Patient is drowsy [] NECK: No jugular vein distension. [] HEENT: No cyanosis. No icterus. No pallor. [] HEART: Tachycardia LUNGS: Mild crakcles bilaterally CENTRAL NERVOUS SYSTEM: Grossly nonfocal. [] EXTREMITIES: Lower extremities with 1+ edema bilaterally. Data 05/02/23 03:37 05/02/23 03:37 Micro: Microbiology 04/28/23 01:45 Urine Culture - Final Urine,Clean Catch A&P Assessment and plan (1) Chest pain: (2) Congestive heart failure (CHF): (3) Pneumonia: (4) Positive urine drug screen: (5) Cardiogenic shock: Plan Continue beta blockers. If BP allows can start enteresto or losartan tomorrow Can switch to PO lasix. Close I and Os. We have ordered lifevest. Thank you for involving us with care of this patient. We will continue to follow. Please call with questions. Attestations Medical Necessity Statement*: Care expected to cross 2 midnights. Coding Level of Care Code Acute Code for [facility] Diagnoses Chest pain R07.9 Congestive heart failure (CHF) I50.9 Pneumonia J18.9 Positive urine drug screen R82.5 Cardiogenic shock R57.0
[2023-05-01] MEDS: metoprolol tartrate 25 mg Tablet PO ×2 (09:17→21:25)
[2023-05-01] MEDS: aspirin 81 mg EC Tablet PO (09:17)
[2023-05-01] MEDS: PARoxetine 20 mg Tablet 10 MG PO (09:17)
[2023-05-01] MEDS: pantoprazole DR 40 mg Tablet PO (09:17)
[2023-05-01] MEDS: cefTRIAXone 1,000 MG in sodium chloride 0.9% (plus) 50 ML 100 MG IV (09:17)
[2023-05-01] MEDS: doxycycline 100 mg Tablet PO ×2 (09:17→18:20)
[2023-05-01] MEDS: lidocaine 5% Patch 1 PATCH TOPICAL (09:20)
[2023-05-01] MEDS: FUROsemide 40 mg Tablet PO ×2 (09:20→15:48)
[2023-05-01] MEDS: ALPRAZolam 0.5 mg Tablet PO ×2 (15:48→23:57)
--- NOTE | 2023-05-01 16:17 | PC.NURSE ---
pt emptied his own urinal and he said it was about 900 ml
--- NOTE | 2023-05-01 16:24 | PC.NURSE ---
patient desaturate on his oxygen to low 90s when asleep. oxygen applied during his sleep at 2 L.
--- NOTE | 2023-05-01 17:09 | PC.NURSE ---
educated pt on limiting drinking mountain dew soda pt noted to have a mountain dew soda in room. pt stated his brought it last night. educated pt in regards to limitation on drinking caffeine or stimulants that could develop his heart to be tachycardic. pt stated he don't usually drink sodas such as energy drink. educated pt on CHF stoplight zones. pt verbalizes understanding.
--- NOTE | 2023-05-01 18:27 | P.PN_ITS ---
Subjective Subjective: Patient had episode of panic attack yesterday when he was coming back from shower. He states he feels as if his chest is tightening along with him not able to absorb any air so he panics. He states he has dealt with panic disorder for many many years and nothing seems to have helped other than Valium when he tried from his friend many years ago. He states Xanax does not usually help him. He is asking if he can get Valium. We discussed if he has ever followed with behavioral health as an outpatient. Patient denies following up with [facility] as an outpatient as he thinks they do not help him at all. Otherwise he has remained hemodynamically stable and afebrile. Saturating well on 2 to 3 L with more than 95%. Blood pressures stable. Urine output documented off around 1900 cc in last 24 hours. Blood work appreciated for stable CBC, CMP showing creatinine improving to 1.1, stable liver functions Medications: Reviewed: Yes Vitals/I&O/Wt Last Vital Signs Temp 97.8 F 05/01/23 04:11 Pulse 100 05/01/23 14:00 Resp 18 05/01/23 12:09 BP 104/67 05/01/23 12:09 Pulse Ox 97 05/01/23 09:51 O2 Del Method Nasal Cannula 05/01/23 09:51 O2 Flow Rate 3 05/01/23 09:51 05/01/23 05/01/23 05/01/23 06:59 14:59 22:59 Intake Total 486 / 486 Output Total 600 / 1900 900 / 900 Balance -600 / -400 486 / 486 -900 / -414 Weight last 48 hrs Weight 72.206 kg Weight 72.32 kg Physical Exam Narrative: General exam no distress, frail appearing, thin built Neck is supple Cardiovascular regular rate and rhythm, PSM at apex soft 2/6 Lungs diminished breath sounds at the bases. A few scattered crackles Abdomen is soft, positive bowel sounds Extremities no cyanosis clubbing or edema, cap refill brisk Data 05/01/23 05:57 05/01/23 05:57 A&P Assessment and plan (1) Congestive heart failure (CHF): 2/2 NICCM. 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 A1c, TSH was normal. Urine drug screen found to be positive for amphetamines though patient denies using amphetamines or any illicit drugs recently. On discussing in detail with the patient regarding possibility of amphetamines being the cause for nonischemic cardiomyopathy he gets upset stating that he has not used meth in a long time. He does give history of using new herbal products which she got off the Internet for last couple of months along with ranitidine for last few months. He states he was told in the past that rantidine can cause him to have false amphetamine drug screen positive. It was discussed in detail that what ever being the cause of his nonischemic cardiomyopathy he needs to avoid using the herbal products or the illicit drug abuse as much as possible along with taking regular medications at regular time for the possibility of improvement in cardiomyopathy. Patient verbalized understanding. Echocardiogram demonstrated an EF around 25%, severe diffuse hypokinesis, moderate MR. Fluid restriction up to 1500 cc. Strict input output charting. Continue with Lasix 40 mg IV daily for now. Patient achieving euvolemia. Weaned off dobutamine and Levophed. Monitor vitals. Monitor electrolytes while diuresing the patient with potassium to be kept around 4 and magnesium to be Around 2. Replete accordingly. Target mean blood pressure around 65. Will uptitrate heart failure targeted regimen gradually keeping vitals and mind. Hold off on increasing beta-zian for now. Continue with 12.5 mg twice daily. Gradually will increase Levophed to 25 mg twice daily and possibly add MIRA/ARB within the next 24 hours. Patient will be a candidate for LifeVest given EF of less than 35%. Case management has been alerted regarding the same. Appreciate cardiology recommendations. (2) Non-ischemic cardiomyopathy: (3) Pneumonia: Concern of pneumonia on x-ray. Patient has had some chills and sweats Continue Rocephin and doxycycline for overall 5-day course. We will plan to transition over to oral antibiotics in the next 24 hours. COVID-negative Discussed with him this could also be vaping injury. Discussed with him not to vape, and offered nicotine patch. He refused a nicotine patch. (4) Polycythemia: Had polycythemia on admission. This could be secondary to tobacco. Doubt evan ycythemia rubra vera. We will continue to follow. This has improved. He also admitted to testosterone use. (5) Transaminitis: Significant transaminitis most likely in setting of congestive hepatomegaly. Slight gallbladder wall thickening, doubt cholecystitis Hepatitis panel negative. Transaminitis improving HIV negative (6) Hyperglycemia: Hemoglobin A1c was normal (7) Positive urine drug screen: Positive urine drug screen for marijuana and amphetamines. Patient denies amphetamine use. (8) Cardiogenic shock: (9) Panic disorder: States longstanding. States nothing seems to have helped. Still does not want to follow-up with behavioral health as they do not seem to help him at all. [place] only thing helps him is a Valium which he tried with his friend once long time ago. We discussed that unfortunately Valium would not be a good option on tenderness he has been closely monitored with behavioral health. Agreeable to start paroxetine 10 mg daily for now. Xanax 0.5 twice daily as needed. Patient will need to have a close follow-up with primary care as an outpatient. Plan Full code Lovenox for DVT prophylaxis Discharge planning: Plan to discharge the next 24 to 48 hours as heart failure regimen is adjusted. Plan to discharge home. Patient will need follow-up with primary care as an outpatient along with other resources for heart failure and possibility of LifeVest. Case management has been alerted. Plan for today: Wean oxygen. Continue with diuresis. Switch Lasix to oral 40 mg twice daily. Fluid restric tion up to 1500 cc. Monitor potassium. Maintain potassium around 4, magnesium around 2. Add paroxetine as above. Increase metoprolol to 25 mg twice daily. Attestations Medical Necessity Statement*: Requires further hospitalization for management of acute systolic congestive heart failure in setting of nonischemic cardiomyopathy while guideline directed medical therapy is optimized Diagnoses Congestive heart failure (CHF) I50.9 Non-ischemic cardiomyopathy I42.8 Pneumonia J18.9 Polycythemia D75.1 Transaminitis R74.01 Hyperglycemia R73.9 Positive urine drug screen R82.5 Cardiogenic shock R57.0 Panic disorder F41.0
--- NOTE | 2023-05-01 18:34 | PC.NURSE ---
visitors at bedside and dgtr, son in law and brother in room for a visit.
--- NOTE | 2023-05-01 21:36 | PC.NURSE ---
This patient is very anxious and is having some chest pain /. Patient requesting dilaudid and valium. Informed Dr Powell and received order for Ultram 50mg every 6 hours. RBVO.
[2023-05-01] MEDS: TRAMadol 50 mg Tablet PO (22:13)
--- NOTE | 2023-05-01 22:57 | PC.NURSE ---
Patient has been stating that he is very upset with the MD's because they accused him of being on methamphetamine and will not prescribe him valium for his anxiety. He stated I am getting a drafter topographical and suing Dr Shaw.
[2023-05-02] VITALS (9 sets, daily range): BP systolic 96–110; BP diastolic 63–77; PULSE 88–103; RESP 16–27; TEMP 36.4–36.8; O2SAT 87–98
[2023-05-02 04:12] LABS: Basophils # 0.1 10^3/uL (0.0-0.1); Basophils % 1.4 %; Eosinophils # 0.4 10^3/uL (0.0-0.8); Eosinophils % 4.8 %; Hematocrit 46.1 % (37-53); Lymphocytes # 2.3 10^3/uL (0.8-4.8); Lymphocytes % 31.4 %; Mean Corpuscular HGB Conc 33.6 g/dL (30-55); Mean Corpuscular Hemoglobin 30.2 pg (27-33); Mean Corpuscular Volume 89.9 fl (82-101); Mean Platelet Volume 11.6 fL (7.4-10.4); Monocytes # 0.5 10^3/uL (0.2-0.9); Monocytes % 6.2 %; Neutrophils # 4.06 10^3/uL (1.8-7.7); Neutrophils % 55.9 %; Nucleated Red Blood Cells % 0 %; Platelet Count 204 10^3/cmm (157-399); Red Blood Count 5.13 10^6/uL (3.85-5.65); Red Cell Distribution Width 11.9 % (12.1-15.1); White Blood Count 7.26 10^3/uL (3.29-11.43)
[2023-05-02 04:38] LABS: Alanine Aminotransferase 124 U/L (0-41); Albumin Level 3.6 g/dL (3.5-5.2); Alkaline Phosphatase 120 U/L (40-130); Anion Gap 15.5 (5-19); Aspartate Amino Transferase 45 U/L (0-40); Blood Urea Nitrogen 28 mg/dL (6-20); Calcium 8.2 mg/dL (8.5-10.5); Carbon Dioxide 25 mmol/L (22-29); Chloride 100 mmol/L (98-107); Globulin 2.1 g/dL (1.3-4.6); Glomerular Filtration Rate 66.7 mL/min (90-130); Glucose 146 mg/dL (65-115); Magnesium 1.9 mg/dL (1.7-2.3); Osmolality Calculated 292 mOsm/kg (285-295); Phosphorus 3.8 mg/dL (2.5-4.5); Potassium 3.5 mmol/L (3.5-5.1); Sodium 137 mmol/L (136-145); Total Bilirubin 0.2 mg/dL (0.15-1.2); Total Protein 5.7 g/dL (6.6-8.7)
[2023-05-02] MEDS: enoxaparin 40 mg/0.4 mL Syringe SUBCUT (06:22)
--- NOTE | 2023-05-02 07:54 | PM.PN ---
Subjective Subjective: Patient is chest pain free. Vitals/I&O/Wt Last Vital Signs Temp 98.3 F 05/02/23 07:40 Pulse 91 05/02/23 07:40 Resp 16 05/02/23 07:40 BP 98/63 05/02/23 07:40 Pulse Ox 97 05/02/23 07:40 O2 Del Method Nasal Cannula 05/02/23 07:40 O2 Flow Rate 3 05/01/23 09:51 05/01/23 05/02/23 05/02/23 22:59 06:59 14:59 Intake Total 1480 / 1966 2480 / 4446 Output Total 900 / 900 450 / 1350 Balance 580 / 1066 2030 / 3096 Weight last 48 hrs Weight 165 lb 1.6 oz Weight 159 lb 3 oz Physical Exam Narrative: GENERAL: Patient is drowsy [] NECK: No jugular vein distension. [] HEENT: No cyanosis. No icterus. No pallor. [] HEART: Tachycardia LUNGS: Clear to auscultation CENTRAL NERVOUS SYSTEM: Grossly nonfocal. [] EXTREMITIES: Lower extremities with 1+ edema bilaterally. Data 05/02/23 03:37 05/02/23 03:37 A&P Assessment and plan (1) Chest pain: (2) Congestive heart failure (CHF): (3) Pneumonia: (4) Positive urine drug screen: (5) Cardiogenic shock: Plan Patient is overall stable. Continue beta-blockers. Lisinopril has been started. Continue p.o. Lasix. We will get LifeVest today. 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 He will need a CTA to rule out interarterial course. All options including transfer for inpatient CTA discussed with patient. He wants to follow as outpatient. Thank you for involving us with care of this patient. We will continue to follow. Please call with questions. Attestations Medical Necessity Statement*: Care expected to cross 2 midnights. Coding Level of Care Code Acute Code for [facility] Diagnoses Chest pain R07.9 Congestive heart failure (CHF) I50.9 Pneumonia J18.9 Positive urine drug screen R82.5 Cardiogenic shock R57.0
[2023-05-02] MEDS: pantoprazole DR 40 mg Tablet PO (08:39)
[2023-05-02] MEDS: PARoxetine 20 mg Tablet 10 MG PO (08:39)
[2023-05-02] MEDS: metoprolol tartrate 25 mg Tablet PO (08:39)
[2023-05-02] MEDS: aspirin 81 mg EC Tablet PO (08:39)
[2023-05-02] MEDS: FUROsemide 40 mg Tablet PO ×2 (08:39→15:54)
[2023-05-02] MEDS: cefTRIAXone 1,000 MG in sodium chloride 0.9% (plus) 50 ML 100 MG IV (08:39)
[2023-05-02] MEDS: doxycycline 100 mg Tablet PO (08:39)
[2023-05-02] MEDS: ALPRAZolam 0.5 mg Tablet PO (08:48)
--- NOTE | 2023-05-02 11:07 | P.DS_ITS ---
Discharge Providers Date of Admission: 04/28/23 04:00 Date of Discharge: May 02, 2023 Attending Provider at Admission: Mamta Lam MD Attending Provider at Discharge: Usman Terry MD Diagnoses at Discharge Discharge Diagnosis (1) Chest pain: Status: Acute (2) Congestive heart failure (CHF): Status: Acute (3) Pneumonia: Status: Acute (4) Positive urine drug screen: Status: Acute (5) Cardiogenic shock: Status: Acute Reason for Visit Reason for Visit: sob / chest pain Brief History: History as per HPI: Adair Gardiner is a 42 year old male presenting to the emergency department with shortness of breath.? He is also been having sharp intermittent stabbing chest discomfort.? Symptoms of been going on at least a month.? Occasionally swelling in his lower extremities.? He states he can feel short of breath at odd times, such as bending over, sometimes doing activity but other times activity feels better.? He has had some chills, and sweats.? No documented fevers.? He has had no vomiting, diarrhea.? He reports no cardiac issues in the past other than perhaps mitral valve prolapse.? He also reports at one time he was thrombocytopenic.? He specifically denies any past history of polycythemia.? When asked about his urine drug screen being positive he reports some recent THC use in the form of Gummies but denies any amphetamine use in many years.? Denies any significant alcohol use.? Some epigastric pain when he presented this time. Hospital Course Hospital Course Patient was admitted to the hospital further evaluation and management of congestive heart failure with possibility of pneumonia. Echocardiogram was done which showed patient to have cardiomyopathy with EF of around 25%. During hospitalization patient had recurrent episodes of acute chest discomfort with tightness in chest and difficulty in breathing. Given concern for cardiomyopathy and ischemia cardiology was consulted and he underwent cardiac angiogram which showed nonobstructive CAD. His urine drug screen on admission was positive for amphetamines. Patient declined use of meth recently in the last few years though he does use herbal product which she got of the Internet. It was believed that his symptoms of acute chest discomfort and tightness was most likely panic attacks versus congestive heart failure. Patient was aggressively diuresed and guideline guided medical therapy was optimized. Even after being euvolemic patient had few episodes of acute shortness of breath and difficulty in breathing. It is believed most of the symptoms are likely secondary to panic attacks. Multiple medical modalities about panic attacks were discussed in detail with the patient though he was reluctant to use any medications other than Valium as he believes Xanax makes him worse and medications like SSRI and SNRIs make him suicidal. He has been discharged hemodynamically stable condition on Valium 2 mg twice daily as needed for anxiety, metoprolol 25 mg twice daily, Lasix 40 mg twice daily, lisinopril 5 mg daily. He is advised in detail to follow-up with the primary care provider for which appointment has been made. He is to check his blood pressures daily at home and maintain a blood pressure diary. He is to follow-up with his blood pressure diary to [facility] nurse practitioner onsite appointment. Physical Exam Narrative: General exam no distress, frail appearing, thin built Neck is supple Cardiovascular regular rate and rhythm, PSM at apex soft 2/6 Lungs diminished breath sounds at the bases. A few scattered crackles Abdomen is soft, positive bowel sounds Extremities no cyanosis clubbing or edema, cap refill brisk Discharge Data Studies Completed and Pending Completed Studies During Hospitalization Category Date Time Status CTA chest CT abdomen pelvis [CT angio chest w abd pel w Cat Scan 04/27/23 23:59 Completed con] Stat CXRP [XR chest 1V portable [id number]] Routine Exams 04/30/23 01:13 Completed XR chest 1V portable [id number] Stat Exams 04/27/23 23:33 Completed CV. echo complete* [id number] Routine Ultrasound 04/28/23 08:14 Completed Pending at discharge Category Date Time Status [employer] request for service Routine Exams 04/28/23 11:45 Taken Blood Culture Stat Lab 04/28/23 09:00 Results MAG [Magnesium] AM LABS Lab 05/03/23 04:00 Ordered PHOS [Phosphorus] AM LABS Lab 05/03/23 04:00 Ordered Sputum Culture and Gram Stain Routine Lab 04/28/23 08:14 Uncollected Radiology Impressions Chest/Abdomen/Pelvis CT 04/27/23 23:59 IMPRESSION: 1. No evidence of pulmonary embolism. 2. Cardiomegaly with left ventricular and left atrial enlargement 3. Findings suggestive of cardiac dysfunction. 4. Bronchitis and multifocal bronchopneumonia. 5. Bilateral pleural effusions right greater than left IMPRESSION: 1. Marked gallbladder wall thickening which is a nonspecific finding but cholecystitis not excluded 2. Focal pyelonephritis upper pole right kidney.. 3. Mild hepatomegaly COMMENTS: Consistent with the [employer] [employer]'s Incidental Findings Committee white paper (J Am Luzmaria Radiol 2018): Any incidental renal lesion less than 1 cm or classified as too small to characterize, or any incidental cystic renal lesion characterized as simple-appearing, is likely benign. No follow-up imaging is recommended for these lesions per consensus recommendations based on imaging criteria. Chest X-Ray 04/30/23 01:13 IMPRESSION: Stable cardiomegaly. Unchanged left basilar airspace opacity. Right pleural effusion seen on recent CT is not visible on today's plain film. Echocardiogram: CONCLUSIONS ?Moderately increased left ventricular cavity size.? Severe ?diffuse hypokinesia of the left ventricle with an ejection ?fraction of 26%. ?Normal right ventricle with a slightly diminished ejection ?fraction. ?Mildly increased left atrial size. ?Moderate mitral valve regurgitation. ?Mild tricuspid valve regurgitation.? Estimated pulmonary artery ?peak systolic pressure 26 mmHg. ?There is no pericardial effusion. ?There are no intracardiac masses. ?No similar previous studies are available for comparison ?Dr Alicia Tuttle MD [facility] ?(Electronically Signed) ?Final Date:? ? ? 28 April 2023 ? 18:59 Laboratory Results WBC 7.26 10^3/uL (3.29-11.43) 05/02/23 03:37 RBC 5.13 10^6/uL (3.85-5.65) 05/02/23 03:37 Hgb 15.50 g/dL (11.27-16.99) 05/02/23 03:37 Hct 46.1 % (37-53) 05/02/23 03:37 MCV 89.9 fl (82-101) 05/02/23 03:37 MCH 30.2 pg (27-33) 05/02/23 03:37 MCHC 33.6 g/dL (30-55) 05/02/23 03:37 RDW 11.9 % (12.1-15.1) L 05/02/23 03:37 Plt Count 204 10^3/cmm (157-399) 05/02/23 03:37 MPV 11.6 fL (7.4-10.4) H 05/02/23 03:37 Neut % (Auto) 55.9 % 05/02/23 03:37 Lymph % (Auto) 31.4 % 05/02/23 03:37 Story % (Auto) 6.2 % 05/02/23 03:37 Eos % (Auto) 4.8 % 05/02/23 03:37 Baso % (Auto) 1.4 % 05/02/23 03:37 Neut # (Auto) 4.06 10^3/uL (1.8-7.7) 05/02/23 03:37 Lymph # (Auto) 2.3 10^3/uL (0.8-4.8) 05/02/23 03:37 Story # (Auto) 0.5 10^3/uL (0.2-0.9) 05/02/23 03:37 Eos # (Auto) 0.4 10^3/uL (0.0-0.8) 05/02/23 03:37 Baso # (Auto) 0.1 10^3/uL (0.0-0.1) 05/02/23 03:37 Nucleated RBC % (auto) 0 % 05/02/23 03:37 Nucleated RBCs # 0.0 /100WBC 05/02/23 03:37 D-Dimer 0.81 ug/mIFEU (0-0.59) H 04/27/23 23:45 Specimen Type Arterial 04/28/23 12:55 Specimen Type Not specified 04/28/23 12:55 Sample Site Not specified 04/28/23 12:55 Sample Site Not specified 04/28/23 12:55 Maulik Test N/a 04/28/23 12:55 Maulik Test N/a 04/28/23 12:55 A-a O2 Gradient 3.1 mmHg (5-10) L 04/28/23 12:55 A-a O2 Gradient 7.1 mmHg (5-10) 04/28/23 12:55 Hematocrit 50.0 % (42-52) 04/28/23 12:55 Hematocrit 50.2 % (42-52) 04/28/23 12:55 Hgb O2 Saturation 64.2 % (95-100) L 04/28/23 12:55 Hgb O2 Saturation 93.6 % (95-100) L 04/28/23 12:55 Carboxyhemoglobin 1.1 %THgb (0.4-20.1) 04/28/23 12:55 Carboxyhemoglobin 1.6 %THgb (0.4-20.1) 04/28/23 12:55 Methemoglobin 0.3 % (0.4-1.5) L 04/28/23 12:55 Methemoglobin 0.4 % (0.4-1.5) 04/28/23 12:55 Total Hemoglobin 16.3 g/dL (14-18) 04/28/23 12:55 Total Hemoglobin 16.4 g/dL (14-18) 04/28/23 12:55 O2 Delivery Device Room air 04/28/23 12:55 O2 Delivery Device Roomair 04/28/23 12:55 Supervisor [employer]ting [employer] ID Gd 04/28/23 12:55 Supervisor [employer] ID Gd 04/28/23 12:55 Sodium 137 mmol/L (136-145) 05/02/23 03:37 Potassium 3.5 mmol/L (3.5-5.1) 05/02/23 03:37 Chloride 100 mmol/L (98-107) 05/02/23 03:37 Carbon Dioxide 25 mmol/L (22-29) 05/02/23 03:37 Anion Gap 15.5 (5-19) 05/02/23 03:37 BUN 28 mg/dL (6-20) H 05/02/23 03:37 Creatinine 1.2 mg/dL (0.7-1.2) 05/02/23 03:37 GFR Calculation 66.7 mL/min (90-130) L 05/02/23 03:37 Glucose 146 mg/dL (65-115) H 05/02/23 03:37 POC Glucose 127 mg/dL (70-110) H 04/30/23 15:14 Estimat Average Glucose 111 04/27/23 23:45 Hemoglobin A1c 5.5 % (4.0-6.0) 04/27/23 23:45 Calculated Osmolality 292 mOsm/kg (285-295) 05/02/23 03:37 Calcium 8.2 mg/dL (8.5-10.5) L 05/02/23 03:37 Phosphorus 3.8 mg/dL (2.5-4.5) 05/02/23 03:37 Magnesium 1.9 mg/dL (1.7-2.3) 05/02/23 03:37 Iron 43 ug/dL (59-158) L 04/30/23 05:39 TIBC 312 mcg/dl 04/30/23 05:39 % Saturation 13.7 % (20-50) L 04/30/23 05:39 Unsat Iron Binding 269 ug/dL (112-347) 04/30/23 05:39 Total Bilirubin 0.2 mg/dL (0.15-1.2) 05/02/23 03:37 AST 45 U/L (0-40) H 05/02/23 03:37 ALT 124 U/L (0-41) H 05/02/23 03:37 Alkaline Phosphatase 120 U/L (40-130) 05/02/23 03:37 Creatine Kinase 204 U/L (39-308) 04/27/23 23:45 Troponin T Gen 5 ng/L 30 ng/L (0-15) H 04/30/23 02:22 Troponin T Baseline 31 ng/L (0-15) H 04/27/23 23:45 Troponin T 120 Minute 33.25 ng/L (0-15) H 04/28/23 01:45 Delta Troponin T 2.25 ABS# (0-10) 04/28/23 01:45 Troponin T Hi Sens 6Hr 28.43 ng/L (0-15) H 04/28/23 05:45 Troponin T Hi Sens 6Hr Delta -2.57 ng/L (0-12) L 04/28/23 05:45 NT-Pro-B Natriuret Pep 40776 pg/mL (0-125) H 04/27/23 23:45 Total Protein 5.7 g/dL (6.6-8.7) L 05/02/23 03:37 Albumin 3.6 g/dL (3.5-5.2) 05/02/23 03:37 Globulin 2.1 g/dL (1.3-4.6) 05/02/23 03:37 Triglycerides 85 mg/dL (0-150) 04/29/23 04:26 Cholesterol 179 mg/dL (0-200) 04/29/23 04:26 LDL Cholesterol, Calc 120 mg/dL (50-129) 04/29/23 04:26 HDL Cholesterol 42 mg/dL (60-100) L 04/29/23 04:26 LDL/HDL Ratio 2.86 RATIO (0.00-3.22) 04/29/23 04:26 Cholesterol/HDL Ratio 4.26 mg/dL (1.0-5.00) 04/29/23 04:26 Vitamin B12 971 pg/mL (232-1245) 04/30/23 05:39 Folate 12.9 ng/mL (4.5-32.2) 05/01/23 05:57 TSH 3.48 uIU/mL (0.27-4.20) 04/28/23 05:45 Urine Color Yellow (Yellow) 04/28/23 01:45 Urine Appearance Clear (CLEAR) 04/28/23 01:45 Urine pH 6.5 (5-7) 04/28/23 01:45 Ur Specific Leo 1.010 (1.005-1.030) 04/28/23 01:45 Urine Protein 1+ (Negative) H 04/28/23 01:45 Urine Glucose (UA) Norm (Normal) 04/28/23 01:45 Urine Ketones Negative (Negative) 04/28/23 01:45 Urine Blood Neg (Negative) 04/28/23 01:45 Urine Nitrate Negative (Negative) 04/28/23 01:45 Urine Bilirubin Neg (Negative) 04/28/23 01:45 Urine Urobilinogen Norm mg/dL (Negative) 04/28/23 01:45 Ur Leukocyte Esterase Negative (Negative) 04/28/23 01:45 Urine RBC 0-4 /hpf (0-2) H 04/28/23 01:45 Urine WBC 0-4 /hpf (0-5) H 04/28/23 01:45 Ur Squamous Epith Cells 0-4 /hpf (0-5) H 04/28/23 01:45 Amorphous Sediment Not Reportable 04/28/23 01:45 Urine Bacteria Trace /hpf (NONE) 04/28/23 01:45 Urine Opiates Screen Positive ng/mL (Negative) H 04/28/23 01:45 Ur Barbiturates Screen Negative ng/mL (Negative) 04/28/23 01:45 Ur Phencyclidine Scrn Negative ng/mL (Negative) 04/28/23 01:45 Ur Amphetamines Screen Positive ng/mL (Negative) H 04/28/23 01:45 U Benzodiazepines Scrn Negative ng/mL (Negative) 04/28/23 01:45 Urine Cocaine Screen Negative ng/mL (Negative) 04/28/23 01:45 U Marijuana (THC) Screen Positive ng/mL (Negative) H 04/28/23 01:45 Coronavirus 229E (PCR) Not detected (NOT DETECT) 04/28/23 09:39 Hepatitis A IgM Ab Non-reactive (Nonreactive) 04/28/23 05:45 Hep Bs Antigen Non-reactive (Nonreactive) 04/28/23 05:45 Hep B Core IgM Ab Non-reactive (Nonreactive) 04/28/23 05:45 Hepatitis C Antibody Non-reactive (Nonreactive) 04/28/23 05:45 HIV 1&2 Ab & HIV 1 Ag Non-reactive (Non-Reactiv) 04/28/23 05:45 HIV 1&2 Antibody Non-reactive (Non-Reactiv) 04/28/23 05:45 SARS-CoV-2 (PCR) Not detected (NOT DETECT) 04/28/23 09:39 SARS-CoV-2 Ag (Rapid) negative (Negative) 04/28/23 00:10 Vitals Last Vital Signs Temp 98.3 F 05/02/23 07:40 Pulse 91 05/02/23 07:40 Resp 16 05/02/23 07:40 BP 98/63 05/02/23 07:40 Pulse Ox 97 05/02/23 07:40 O2 Del Method Nasal Cannula 05/02/23 07:40 O2 Flow Rate 3 05/01/23 09:51 Discharge Plan Discharge Patient Disposition: Home Condition: Stable Prescriptions: New Valium 2 mg tablet 2 mg PO BID PRN (Reason: anxiety) Qty: 10 0RF doxycycline monohydrate 100 mg Tablet 100 mg PO BID Qty: 6 0RF lisinopril 5 mg tablet 5 mg PO DAILY Qty: 30 0RF metoprolol tartrate 25 mg Tablet 25 mg PO BID@0900,2100 Qty: 60 0RF furosemide 40 mg Tablet 40 mg PO BID@08,16 Qty: 60 0RF Continued aspirin 81 mg Tablet,Chewable 81 mg PO DAILY krill oil 500 mg Capsule 500 mg PO TID Discharge Orders: Discharge Order (Routine); Ordered 05/02/23 Ordered By: Usman Terry Other Ambulatory Orders: DME: Oxygen (Order) Location: None Selected Ordered By: Usman Terry Referrals: Jordin Shaw M.D [Physician] - (Your Dr. Shaw follow up appointment will be scheduled while you are at your Adilia Lindsey appointment. Thank you.) Chasity Nova FNP [Nurse Practitioner] - 05/07/23 10:00 am (Appointment 10AM on 05/07/23) Adilia Lindsey FNP [Nurse Practitioner] - 05/08/23 10:15 am Discharge Diet: Cardiac Discharge Activity: Resume usual activity and Increase activity as tolerated Patient Instructions: Metoprolol (By mouth) (Lopressor, Toprol XL), Lisinopril (By mouth) (Prinivil, Zestril), Furosemide (By mouth) (Lasix), Doxycycline (By m outh) (Acticlate, Adoxa, Avidoxy, Monodox, Doryx), Paroxetine (By mouth) (Paxil, Paxil CR, Brisdelle, Pexeva), Heart Failure (DC), Panic Disorder (DC), Heart Catheterization (DC), CHF Stoplight, Opioid Safety, Post Angiogram Home Care Instructions, Pain Management Activity Restrictions/Additional Instructions: Multiple new medications have been started. For high blood pressure and heart failure he is to take metoprolol 25 mg twice daily, Lasix 40 mg twice daily, lisinopril 5 mg daily. He is to follow-up with his primary care provider on set appointment and should have a repeat BMP in 1 month. He is to restrict fluid intake to less than 1500 cc, salt intake to less than 2 g daily. He was advised to check her weight daily at home. He is advised that her weight today would be Giurgius dry weight and if her body weight increases by around 5 pounds we is to take an extra dose of Lasix daily till her body weight comes down to her weight today. If he is not able to come down to her dry body weight in 1 week she is to call cardiology office for further recommendations. Patient was counseled in detail to take her medications regularly. Discharge Attestations Time Spent in Discharge Care*: greater than 30 min Specific Discharge Activities: educating patient, educating and/or supporting family/caregiver, discussing with pcp/other providers, discussing with dependency case manager/social workers/dc planners, documenting/other paperwork and evaluating patient/reviewing data Quality Metrics Clinical Quality Measures [ No reported AMI, CVA or VTE this stay] Coding Level of Care Code Acute Code for Chg Fwd Diagnoses Chest pain R07.9 Congestive heart failure (CHF) I50.9 Pneumonia J18.9 Positive urine drug screen R82.5 Cardiogenic shock R57.0
[2023-05-02] MEDS: LORazepam 0.5 mg Tablet PO (11:47)
[2023-05-02] MEDS: diazePAM 2 mg Tablet PO (13:50)
--- NOTE | 2023-05-02 16:20 | PC.NURSE ---
Addendum entered by Bird Sharma RN 05/02/23 16:24: Case management was notified that the pt refused the oxygen as well stating that he could not pay. Original Note: Pt states that he is not staying another night and that he is leaving today although Dr. Terry would have liked for him to stay another night. Pt has the life vest in place but refused the oxygen milo stated that he can't afford $250 / month. notified.
--- NOTE | 2023-05-02 17:38 | PC.NURSE ---
Discharge Note Patient discharged to [home] via [w/c to POV] accompanied by [spouse and daughter]. 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 Mobile pharmacy medications and/or prescriptions provided. Belongings/home medications returned.
== END 2023-05-02 16:15 | disposition home or self-care (01) | DRG 286 ==
LOC: ER 04-28 02:12 → CSU 04-28 04:00 → ICU 04-28 13:27 → CSU 04-29 13:02
PROVIDERS: Internal Medicine; Admitting Provider Hospitalist; Emergency Provider Emergency Medicine; Visit Provider Student in an Organized Health Care Education/Training Program
PROC: B2111ZZ Fluoroscopy of Multiple Coronary Arteries using Low Osmolar Contrast (ICD-10-PCS; principal; 2023-04-28 12:00)
DX: I50.21 Acute systolic (congestive) heart failure (principal); J18.9 Pneumonia, unspecified organism; I42.8 Other cardiomyopathies; F15.90 Other stimulant use, unspecified, uncomplicated; F12.90 Cannabis use, unspecified, uncomplicated; I25.10 Atherosclerotic heart disease of native coronary artery without angina pectoris; F41.0 Panic disorder [episodic paroxysmal anxiety]; F41.9 Anxiety disorder, unspecified; Z79.82 Long term (current) use of aspirin; I95.9 Hypotension, unspecified; I34.1 Nonrheumatic mitral (valve) prolapse; R73.9 Hyperglycemia, unspecified; F17.290 Nicotine dependence, other tobacco product, uncomplicated
CPT/HCPCS: 36415; 36416; 71045; 71275; 74177; 75625; 80053; 80061; 80074; 80306; 81001; 82550; 82607; 82746; 82810; 82962; 83036; 83540; 83550; 83735; 83880; 84100; 84443; 84484; 85025; 85378; 87040; 87086; 87426; 87635; 87806; 93005; 93306; 93460; 94760; 96372; 96374; 96375; 96376; 99152; 99153; 99285; C1751; C1769; C1887; C1894; J0456; J0696; J1170; J1250; J1644; J1650; J1940; J2060; J2250; J2270; J2405; J2765; J3010; J7030; J7040; J7050; J7060; P9046; Q9967

== ENCOUNTER 2023-05-04 02:53 | Inpatient (IN) | payer MEDICAID, SELFPAY ==
[2023-05-04] VITALS (64 sets, daily range): BP systolic 88–107; BP diastolic 59–87; PULSE 69–106; RESP 7–32; TEMP 35.9–36.6; O2SAT 86–100; BMI 21.2
--- NOTE | 2023-05-04 03:18 | ECG_ITS ---
[facility] Test Date: 2023-05-04 Pat Name: Adair Gardiner Department: Room: Gender: Male Emulsion Coater: : 1980 Requested By: Leroy Manzanares Order Number: [id number] Maldonado MD: Jordin Shaw M.D. Measurements Intervals [place] Rate: 98 P: 9 IN: 204 QRS: -62 QRSD: 116 T: 114 QT: 381 QTc: 487 Interpretive Statements SINUS RHYTHM LEFT ATRIAL ENLARGEMENT [-0.15mV P-WAVE IN V1/V2] INCOMPLETE RIGHT BUNDLE BRANCH BLOCK [90+ ms QRS DURATION, TERMINAL R IN V1/V2, 40+ ms S IN I/aVL/V4/V5/V6] LEFT ANTERIOR FASCICULAR BLOCK [QRS AXIS <= -45, QR IN I, RS IN II] LEFT VENTRICULAR HYPERTROPHY AND ST-T CHANGE [VOLTAGE CRITERIA PLUS ST/T ABNORMALITY] POSSIBLE ANTEROSEPTAL MYOCARDIAL INFARCTION , OF INDETERMINATE AGE [30 ms Q WAVE IN V1-V4] Compared to ECG 04/30/2023 00:37:03 Incomplete right bundle-branch block now present Myocardial infarct finding still present Electronically Signed On 05-04-2023 15:16:03 CDT by Jordin Shaw M.D. [id number] f
--- NOTE | 2023-05-04 03:30 | XRR_ITS ---
PROCEDURE INFORMATION: Exam: XR Chest Exam date and time: 05/04/2023 3:36 AM Age: 42 years old Clinical indication: Shortness of breath; Patient HX: C/O SOB. TECHNIQUE: Imaging protocol: Radiologic exam of the chest. Views: 1 view. COMPARISON: CR (CHEST, ) 04/30/2023 1:32 AM FINDINGS: Lungs: Basilar septal lines are noted. Pleural spaces: Small right pleural effusion suspected. No pneumothorax on either side. Heart/Mediastinum: Enlarged cardiac silhouette. Vasculature: Azygos arch measures 1.6 cm in diameter. Bones/joints: Age appropriate. XR/XR chest 1V portable [id number] IMPRESSION: Findings suggest heart failure.
[2023-05-04 03:54] LABS: Basophils # 0.1 10^3/uL (0.0-0.1); Basophils % 1.5 %; Eosinophils # 0.2 10^3/uL (0.0-0.8); Eosinophils % 2.7 %; Lymphocytes # 3.1 10^3/uL (0.8-4.8); Mean Corpuscular HGB Conc 34.2 g/dL (30-55); Mean Corpuscular Hemoglobin 30.9 pg (27-33); Mean Corpuscular Volume 90.4 fl (82-101); Mean Platelet Volume 11.5 fL (7.4-10.4); Monocytes # 0.6 10^3/uL (0.2-0.9); Monocytes % 7.4 %; Neutrophils # 4.06 10^3/uL (1.8-7.7); Neutrophils % 50.2 %; Nucleated Red Blood Cells % 0 %; Platelet Count 229 10^3/cmm (157-399); Red Blood Count 5.53 10^6/uL (3.85-5.65)
[2023-05-04 04:11] LABS: Troponin(5th) Baseline 35 ng/L (0-15)
[2023-05-04] MEDS: diazePAM 5 mg Tablet 10 MG PO (04:44)
[2023-05-04] MEDS: FUROsemide 10 mg/mL SDV 10mL 80 MG IVP (04:44)
[2023-05-04 05:15] LABS: Alanine Aminotransferase 148 U/L (0-41); Albumin Level 4.5 g/dL (3.5-5.2); Alkaline Phosphatase 142 U/L (40-130); Aspartate Amino Transferase 68 U/L (0-40); Blood Urea Nitrogen 34 mg/dL (6-20); Calcium 9.2 mg/dL (8.5-10.5); Carbon Dioxide 23 mmol/L (22-29); Chloride 103 mmol/L (98-107); Globulin 1.7 g/dL (1.3-4.6); Glomerular Filtration Rate 51.6 mL/min (90-130); Glucose 95 mg/dL (65-115); Lipase 43 U/L (13-60); NT Pro B Type Natriuretic Pept 21185 pg/mL (0-125); Osmolality Calculated 297 mOsm/kg (285-295); Sodium 140 mmol/L (136-145); Total Bilirubin 0.6 mg/dL (0.15-1.2); Total Protein 6.2 g/dL (6.6-8.7)
[2023-05-04 06:01] LABS: Troponin 5 2HR 30.08 ng/L (0-15)
--- NOTE | 2023-05-04 06:23 | PM.HP ---
Providers/Chief Complaint Admitting Physician: Dylan Powell MD Chief Complaint: SOB, chest pain, back pain, nausous History of Present Illness Adair Gardiner is a 42 year old male past medical history of nonischemic cardiomyopathy, systolic CHF, panic attacks, EF 26%, recent hospitalization for for which he underwent coronary angiography which did not show obstructive CAD, managed for CHF, diuresed, did have panic attacks, who presents to [facility] due to recurrent chest discomfort, shortness of breath, abdominal pain, nausea, vomiting, feeling unwell. Patient tells me that since getting home, he continues to have anterior chest discomfort feels like something is squeezing his chest, he tells me he also feels short of breath, short of breath with exertion, no orthopnea, no paroxysmal nocturnal dyspnea, no edema, does have diffuse abdominal pain, with nausea, vomiting, no diarrhea, does report poor appetite, denies IV drug use, denies alcoholism Review of Systems Const: Denies: fever(s) Eyes: Denies: change in vision Card: Reports: chest pain Resp: Reports: dyspnea GI: Reports: abdominal pain, nausea and vomiting : Denies: flank pain Musc: Denies: back pain Medications/Allergies Home Medications Medication Instructions Recorded Confirmed Last Taken Type aspirin 81 mg chewable tablet 81 mg PO DAILY 04/28/23 04/28/23 Unknown History krill oil 500 mg capsule 500 mg PO TID 04/28/23 04/28/23 Unknown History diazepam 2 mg tablet (Valium) 2 mg PO BID PRN anxiety #10 tabs 05/02/23 Unknown Rx doxycycline monohydrate 100 mg 100 mg PO BID #6 tabs 05/02/23 Unknown Rx tablet furosemide 40 mg tablet 40 mg PO BID@08,16 #60 tabs 05/02/23 Unknown Rx lisinopril 5 mg tablet 5 mg PO DAILY #30 tabs 05/02/23 Unknown Rx metoprolol tartrate 25 mg tablet 25 mg PO BID@0900,2100 #60 tabs 05/02/23 Unknown Rx Allergies Allergy/AdvReac Type Severity Reaction Status Date / Time No Known Allergies Allergy Verified 04/27/23 23:31 PFSH Acute PFSH: Medical History Amphetamine abuse Congestive heart failure (CHF) History of kidney stones Mitral valve prolapse Non-ischemic cardiomyopathy Panic disorder Surgical History History of hand surgery Family History Other CAD (coronary artery disease) Social History Smoking and tobacco status: current every day smoker Alcohol intake: current Alcohol intake frequency: few times a month Substance/Drug Use: former Vitals/I&O/Wt Last Vital Signs Temp 97.8 F 05/04/23 03:04 Pulse 106 H 05/04/23 04:46 Resp 22 H 05/04/23 04:46 BP 92/66 05/04/23 04:46 Pulse Ox 98 05/04/23 04:46 O2 Del Method Nasal Cannula 05/04/23 04:46 O2 Flow Rate 2 05/04/23 04:46 Weight last 48 hrs Weight 74.843 kg Physical Exam Const: COMMON NORMALS: no acute distress and patient oriented x3 GENERAL APPEARANCE: cooperative HENMT: COMMON NORMALS: normocephalic and Normal external nose present HEAD & SCALP: normocephalic FACE & SINUS: normal facial exam NOSE: Normal external nose present Eye: COMMON NORMALS: Equal, round and reactive pupils present, EOMs intact bilaterally, conjunctivae normal and no scleral icterus CONJUNCTIVA: Yes conjunctivae normal PUPIL: Yes Equal, round and reactive pupils present Neck/C-Spine: COMMON NORMALS: full ROM, no lymphadenopathy, Thyroid normal and No carotid bruits THYROID: Thyroid normal Lymph: LYMPHATIC: no lymphadenopathy noted Chest: COMMONS NORMALS: normal inspection of the chest Resp: COMMON NORMALS: normal respiratory effort, No retractions and No use of accessory muscles OTHER: Crackles on exam Cardio: COMMON NORMALS: no JVD, regular rate, regular rhythm, S1 normal heart sound present, S2 normal heart sound present, No murmurs present (Cardio) and Peripheral pulses 2+ throughout RATE: regular rate RHYTHM: regular rhythm HEART SOUNDS: S1 normal heart sound present and S2 normal heart sound present PERIPHERAL PULSES: Peripheral pulses 2+ throughout GI: COMMON NORMALS: Normal to inspection, nondistended, normoactive bowel sounds present and Soft to palpation OTHER: Diffuse abdominal tenderness, no rebound, no rigidity : BLADDER/KIDNEY EXAM: Yes no CVA tenderness Back/Pelvis: COMMON NORMALS: no CVA tenderness Extremity: COMMON NORMALS: normal to inspection, full ROM, capillary refill normal, no calf tenderness and no pedal edema Neuro: COMMON NORMALS: patient oriented x3, CN's II-XII intact bilaterally, moves all extremities, no focal motor deficits and no sensory deficits noted MENINGEAL SIGNS: Yes no meningeal signs Psych: COMMON NORMALS: mental status grossly normal, Normal thought process present, cooperative and speech normal APPEARANCE: Yes well kempt SPEECH: Yes normal speech THOUGHT PROCESS: Normal thought process present Skin: COMMON NORMALS: turgor normal and no jaundice GENERAL SKIN EXAM: turgor normal Data 05/04/23 03:42 05/04/23 03:42 A&P Assessment and plan (1) Congestive heart failure (CHF): (2) Non-ischemic cardiomyopathy: (3) Panic disorder: (4) Chest pain: (5) CHF exacerbation: (6) Abdominal pain: Plan Chest pain -Serial EKGs, serial troponins, telemetry monitoring Systolic CHF exacerbation -Has received 80 Lasix in the emergency room -Creatinine is 1.5 -We will repeat BMP at noon -I have scheduled him to receive Lasix 40 IV twice daily starting at 6 PM, if his creatinine elevates then consider holding -Monitor urine output, monitor creatinine Abdominal pain -Does have transaminitis, elevated alk phos, -We will order right upper quadrant ultrasound Full code Lovenox for DVT prophylaxis Attestations Medical Necessity Statement*: Patient requires hospitalization, inpatient, greater than 2 midnights, for chest pain, CHF exacerbation abdominal pain Diagnoses Congestive heart failure (CHF) I50.9 Non-ischemic cardiomyopathy I42.8 Panic disorder F41.0 Chest pain R07.9 CHF exacerbation I50.9 Abdominal pain R10.9
[2023-05-04 06:53] LABS: ABG PCO2 38.1 mmHg (35-45); ABG PH Result 7.47 (7.35-7.45); Arterial Blood Gas Hematocrit 48.8 % (42-52); Blood Gas Sample Site Brachial, right; Blood Gas Sample Type Arterial; HCO3 ABG 27.8 mmol/L (22-26); Oxygen Device NC
[2023-05-04 06:54] LABS: Add Urine Microscopic? NO; Charge for UA Resulting for Rev
[2023-05-04 06:56] LABS: Lactic Sepsis W/Reflex 2.2 mmol/L (0.5-2.2)
[2023-05-04 07:18] LABS: Bilirubin Urine Neg (Negative); Blood Urine Neg (Negative); Glucose Urine UA Norm (Normal); Ketones Urine Negative (Negative); Leukocyte Esterase Urine Negative (Negative); Nitrate Urine Negative (Negative); Protein Urine Neg (Negative); Specific Gravity, Urine 1.005 (1.005-1.030); Urine Appearance Clear (CLEAR); Urine Color Yellow (Yellow); Urobilinogen Urine Norm (Negative); pH Urine 7 (5-7)
[2023-05-04 07:19] LABS: Reflex Lactate Order REFLEX LACTIC ORDERD
--- NOTE | 2023-05-04 08:02 | USR_ITS ---
PROCEDURE INFORMATION: Exam: US Abdomen, Limited; Right Upper Quadrant Exam date and time: 05/04/2023 3:12 PM Age: 42 years old Clinical indication: Abdominal pain; Generalized; Additional info: Ruq pain, npo after breakfast. Will scan this afternoon. CR TECHNIQUE: Imaging protocol: Real time ultrasound of the abdomen with image documentation. Limited exam focused on the right upper quadrant. COMPARISON: CT angio chest w abd pel w con 04/28/2023 12:26 AM FINDINGS: Liver: Normal. No masses. Gallbladder: Cholelithiasis. Gallbladder wall thickening noted up to 8 mm. Biliary ducts: Normal. No stones. No dilation. Pancreas: Visualized pancreas is unremarkable. Right kidney: Right kidney measures 11.8 cm in length. No mass. No hydronephrosis. Intraperitoneal space: Trace upper abdominal ascites. US/US gall bladder [id number] IMPRESSION: Cholelithiasis. Gallbladder wall thickening is nonspecific, this may reflect acute cholecystitis or a secondary etiology such as ascites.
[2023-05-04 08:07] LABS: Lactic Acid level (Lactate) 1.4 mmol/L (0.5-2.2)
[2023-05-04] MEDS: aspirin 81 mg Chew Tablet PO (08:41)
[2023-05-04] MEDS: enoxaparin 40 mg/0.4 mL Syringe SUBCUT (08:41)
[2023-05-04] MEDS: pantoprazole 40 mg SDV IVP (08:41)
[2023-05-04] MEDS: lisinopril 5 mg Tablet PO (08:41)
[2023-05-04 09:49] LABS: Procalcitonin 0.08 ng/mL (0-0.5); Thyroid Stimulating Hormone 10.26 uIU/mL (0.27-4.20)
[2023-05-04 09:52] LABS: Estmated Average Glucose 114; Hemoglobin A1C 5.6 % (4.0-6.0)
--- NOTE | 2023-05-04 09:58 | ECG_ITS ---
[facility] Test Date: 2023-05-04 Pat Name: Adair Gardiner Department: Room: 103 Gender: Male Transitional Living Specialist: : 1980 Requested By: Leroy Manzanares Order Number: [id number] Erica MD: Jordin Shaw M.D. Measurements Intervals [place] Rate: 78 P: -82 IN: 208 QRS: 179 QRSD: 129 T: 75 QT: 464 QTc: 532 Interpretive Statements ECTOPIC ATRIAL RHYTHM LEFT ATRIAL ENLARGEMENT [-0.15mV P-WAVE IN V1/V2] POSSIBLE RIGHT VENTRICULAR HYPERTROPHY [SOME/ALL OF: PROMINENT R IN V1, LATE TRANSITION, RAD, LISHA, SSS] INFERIOR MYOCARDIAL INFARCTION , PROBABLY OLD [40+ ms Q WAVE AND/OR ST/T ABNORMALITY IN II/aVF] MARKED T-WAVE ABNORMALITY, CONSIDER LATERAL ISCHEMIA [-0.5+ mV T-WAVE IN I/aVL/V5/V6] Compared to ECG 05/04/2023 03:18:52 Ectopic atrial rhythm now present T-wave abnormality now present Possible ischemia now present Sinus rhythm no longer present Incomplete right bundle-branch block no longer present Myocardial infarct finding still present Electronically Signed On 05-04-2023 15:22:17 CDT by Jordin Shaw M.D. [id number]
[2023-05-04 09:59] LABS: Gamma Glutamyl Transferase 250 U/L (8-61)
[2023-05-04 10:04] LABS: Alcohol Level < 10 mg/dL (0-10)
[2023-05-04 10:34] LABS: Troponin 5 6HR 26.59 ng/L (0-15)
[2023-05-04 10:56] LABS: Amphetamines Screen Urine Negative (Negative); Barbiturates Screen Urine Negative (Negative); Benzodiazepines Screen Urine Positive (Negative); Cocaine Screen Urine Negative (Negative); Opiate Screen Urine Negative (Negative); PCP Screen Urine Negative (Negative); THC Screen Urine Negative (Negative)
[2023-05-04 12:45] LABS: Blood Urea Nitrogen 28 mg/dL (6-20); Calcium 8.3 mg/dL (8.5-10.5); Carbon Dioxide 30 mmol/L (22-29); Chloride 97 mmol/L (98-107); Glomerular Filtration Rate 60.8 mL/min (90-130); Glucose 80 mg/dL (65-115); Osmolality Calculated 284 mOsm/kg (285-295); Sodium 135 mmol/L (136-145)
--- NOTE | 2023-05-04 15:16 | W.ED.BACK ---
HPI - Back Pain/Injury General: Chief Complaint: Back Pain/Injury Stated Complaint: SOB, chest pain, back pain, nausous Time Seen by Provider: 05/04/23 03:07 History of Present Illness: 42 year old male with a history of nonischemic heart failure discharged from the hospital a couple of days ago. He presents again to the emergency department with shortness of breath, chest and belly discomfort. He notes that he can't sleep at night, because he cannot lay flat due to shortness of breath, and can't find a comfortable position. He notes significant decrease in urine output on oral lasix compared to IV lasix. He believes he has gained water weight back. Associated symptoms: Reports abdominal pain, nausea and vomiting; Deny chills or fever(s) Review of Systems Const: Reports: body aches; Denies: fever(s) or chills ENMT: Denies: throat pain Card: Reports: chest pain, palpitations, edema and dyspnea on exertion Resp: Reports: dyspnea; Denies: productive cough or non-productive cough GI: Reports: abdominal pain, nausea and vomiting : Reports: difficulty urinating Musc: Reports: back pain Skin/Breast: Denies: rash Neuro: Reports: dizziness; Denies: confusion Psych: Reports: anxiety PFSH ED PFSH: Medical History Amphetamine abuse Congestive heart failure (CHF) History of kidney stones Mitral valve prolapse Non-ischemic cardiomyopathy Panic disorder Surgical History History of hand surgery Family History Other CAD (coronary artery disease) Social History Smoking and tobacco status: current every day smoker Alcohol intake: current Alcohol intake frequency: few times a month Substance/Drug Use: former Physical Exam Const: GENERAL APPEARANCE: cooperative, anxious, ill appearing and diaphoretic NUTRITIONAL APPEARANCE: thin HENMT: COMMON NORMALS: normocephalic, atraumatic and Normal external nose present HEAD & SCALP: normocephalic and atraumatic FACE & SINUS: normal facial exam NOSE: Normal external nose present Eye: COMMON NORMALS: Equal, round and reactive pupils present and EOMs intact bilaterally PUPIL: Yes Equal, round and reactive pupils present Neck/C-Spine: GENERAL: Yes trachea midline Chest: CHEST: Yes Symmetrical chest wall rise Resp: EFFORT & INSPECTION: Yes tachypneic, Yes labored and Yes uses accessory muscles AUSCULTATION: diminished lung sounds Cardio: COMMON NORMALS: regular rate and regular rhythm RATE: regular rate RHYTHM: regular rhythm GI: COMMON NORMALS: Soft to palpation INSPECTION: Yes abdominal distension PALPATION: Yes Soft to palpation Extremity: COMMON NORMALS: no pedal edema Neuro: DAIVD COMA SCALE: document GCS findings [place] coma scale eye opening: Spontaneous [place] coma scale verbal response: Orientated [place] coma scale motor response: Obey commands [place] coma scale total score: 15 SENSORY EXAM: Yes extremities (intact) Psych: COMMON NORMALS: speech normal SPEECH: Yes normal speech Skin: COMMON NORMALS: no rashes or lesions noted GENERAL SKIN EXAM: no rashes or lesions noted Course Vital Signs: Vital signs: Vital Signs Temperature 97.5 F L 05/04/23 11:55 Pulse Rate 72 05/04/23 11:55 Respiratory Rate 12 05/04/23 11:55 Blood Pressure 92/61 05/04/23 11:55 Pulse Oximetry 96 05/04/23 11:55 Oxygen Delivery Me thod Nasal Cannula 05/04/23 11:55 Oxygen Flow Rate 2 05/04/23 06:43 MDM - Back Pain/Injury Medical Decision Making Patient with non ischemic heart failure, respiratory distress, labored breathing, chest discomfort, pulmonary edema on chest X-ray, BNP of 21,000, which is higher than his initial presentation a few days ago, and some evidence of acute kidney injury with a creatinine of 1.5. Will require repeated mission for cautious diuresis given his renal function, etcetera. Labs 05/04/23 03:42 05/04/23 12:12 Radiology Impressions Chest X-Ray 05/04/23 03:30 IMPRESSION: Findings suggest heart failure. Laboratory Results WBC 8.10 10^3/uL (3.29-11.43) 05/04/23 03:42 RBC 5.53 10^6/uL (3.85-5.65) 05/04/23 03:42 Hgb 17.10 g/dL (11.27-16.99) H 05/04/23 03:42 Hct 50.0 % (37-53) 05/04/23 03:42 MCV 90.4 fl (82-101) 05/04/23 03:42 MCH 30.9 pg (27-33) 05/04/23 03:42 MCHC 34.2 g/dL (30-55) 05/04/23 03:42 RDW 12.0 % (12.1-15.1) L 05/04/23 03:42 Plt Count 229 10^3/cmm (157-399) 05/04/23 03:42 MPV 11.5 fL (7.4-10.4) H 05/04/23 03:42 Neut % (Auto) 50.2 % 05/04/23 03:42 Lymph % (Auto) 38.0 % 05/04/23 03:42 [place] % (Auto) 7.4 % 05/04/23 03:42 Eos % (Auto) 2.7 % 05/04/23 03:42 Baso % (Auto) 1.5 % 05/04/23 03:42 Neut # (Auto) 4.06 10^3/uL (1.8-7.7) 05/04/23 03:42 Lymph # (Auto) 3.1 10^3/uL (0.8-4.8) 05/04/23 03:42 [place] # (Auto) 0.6 10^3/uL (0.2-0.9) 05/04/23 03:42 Eos # (Auto) 0.2 10^3/uL (0.0-0.8) 05/04/23 03:42 Baso # (Auto) 0.1 10^3/uL (0.0-0.1) 05/04/23 03:42 Nucleated RBC % (auto) 0 % 05/04/23 03:42 Nucleated RBCs # 0.0 /100WBC 05/04/23 03:42 Specimen Type Arterial 05/04/23 06:48 Sample Site Brachial, right 05/04/23 06:48 ABG pH 7.47 (7.35-7.45) H 05/04/23 06:48 ABG pCO2 38.1 mmHg (35-45) 05/04/23 06:48 ABG pO2 113.0 mmHg (80.0-100.0) H 05/04/23 06:48 ABG HCO3 27.8 mmol/L (22-26) H 05/04/23 06:48 ABG Base Excess 4.0 mmol/L (-2.0-2.0) H 05/04/23 06:48 Maulik Test N/a 05/04/23 06:48 Hematocrit 48.8 % (42-52) 05/04/23 06:48 O2 Delivery Device Nc 05/04/23 06:48 O2 Liters/Min 2.0 % 05/04/23 06:48 FiO2 28.0 % 05/04/23 06:48 Corporate Fitness Program Coordinator ID [email or web address] 05/04/23 06:48 Sodium 140 mmol/L (136-145) 05/04/23 03:42 Potassium 5.0 mmol/L (3.5-5.1) 05/04/23 03:42 Chloride 103 mmol/L (98-107) 05/04/23 03:42 Carbon Dioxide 23 mmol/L (22-29) 05/04/23 03:42 Anion Gap 19.0 (5-19) 05/04/23 03:42 BUN 34 mg/dL (6-20) H 05/04/23 03:42 Creatinine 1.5 mg/dL (0.7-1.2) H 05/04/23 03:42 GFR Calculation 51.6 mL/min (90-130) L 05/04/23 03:42 Glucose 95 mg/dL (65-115) 05/04/23 03:42 Estimat Average Glucose 114 05/04/23 03:42 Hemoglobin A1c 5.6 % (4.0-6.0) 05/04/23 03:42 Calculated Osmolality 297 mOsm/kg (285-295) H 05/04/23 03:42 Lactic Acid 2.2 mmol/L (0.5-2.2) 05/04/23 03:42 Lactic Acid (Sepsis) 1.4 mmol/L (0.5-2.2) 05/04/23 07:40 Calcium 9.2 mg/dL (8.5-10.5) 05/04/23 03:42 Total Bilirubin 0.6 mg/dL (0.15-1.2) 05/04/23 03:42 GGT 250 U/L (8-61) H 05/04/23 05:31 AST 68 U/L (0-40) H 05/04/23 03:42 ALT 148 U/L (0-41) H 05/04/23 03:42 Alkaline Phosphatase 142 U/L (40-130) H 05/04/23 03:42 Troponin T Baseline 35 ng/L (0-15) H 05/04/23 03:42 Troponin T 120 Minute 30.08 ng/L (0-15) H 05/04/23 05:31 Delta Troponin T -4.92 ABS# (0-10) L 05/04/23 05:31 C-Reactive Protein 3.0 mg/L (0.0-4.9) 05/04/23 05:31 NT-Pro-B Natriuret Pep 61099 pg/mL (0-125) H 05/04/23 03:42 Total Protein 6.2 g/dL (6.6-8.7) L 05/04/23 03:42 Albumin 4.5 g/dL (3.5-5.2) 05/04/23 03:42 Globulin 1.7 g/dL (1.3-4.6) 05/04/23 03:42 Lipase 43 U/L (13-60) 05/04/23 03:42 Procalcitonin 0.08 ng/mL (0-0.5) 05/04/23 05:31 TSH 10.26 uIU/mL (0.27-4.20) H 05/04/23 05:31 Urine Color Yellow (Yellow) 05/04/23 06:30 Urine Appearance Clear (CLEAR) 05/04/23 06:30 Urine pH 7 (5-7) 05/04/23 06:30 Ur Specific [place] 1.005 (1.005-1.030) 05/04/23 06:30 Urine Protein Neg (Negative) 05/04/23 06:30 Urine Glucose (UA) Norm (Normal) 05/04/23 06:30 Urine Ketones Negative (Negative) 05/04/23 06:30 Urine Blood Neg (Negative) 05/04/23 06:30 Urine Nitrate Negative (Negative) 05/04/23 06:30 Urine Bilirubin Neg (Negative) 05/04/23 06:30 Urine Urobilinogen Norm mg/dL (Negative) 05/04/23 06:30 Ur Leukocyte Esterase Negative (Negative) 05/04/23 06:30 Urine Opiates Screen Negative ng/mL (Negative) 05/04/23 06:30 Ur Barbiturates Screen Negative ng/mL (Negative) 05/04/23 06:30 Ur Phencyclidine Scrn Negative ng/mL (Negative) 05/04/23 06:30 Ur Amphetamines Screen Negative ng/mL (Negative) 05/04/23 06:30 U Benzodiazepines Scrn Positive ng/mL (Negative) H 05/04/23 06:30 Urine Cocaine Screen Negative ng/mL (Negative) 05/04/23 06:30 U Marijuana (THC) Screen Negative ng/mL (Negative) 05/04/23 06:30 Ethyl Alcohol < 10 mg/dL (0-10) 05/04/23 05:31 Discharge Plan Discharge Patient Disposition: Admitted As Inpatient Admit Provider: Dylan Powell Clinical Impression: CHF exacerbation, Non-ischemic cardiomyopathy Condition: Fair Coding Level of Care Code ED Tank Filler for Michelle Patel
[2023-05-04 16:09] LABS: Adenovirus Not Detected (NOT DETECT); Chlamydia Pneumoniae Not Detected (NOT DETECT); Coronavirus 229E,HKU1,NL63,OC4 Not Detected (NOT DETECT); Human Metapneumovirus Not Detected (NOT DETECT); Human Rhinovirus/Enterovirus Not Detected (NOT DETECT); Influenza A Not Detected (NOT DETECT); Influenza A H1 Not Detected (NOT DETECT); Influenza A H1-2009 Not Detected (NOT DETECT); Influenza A H3 Not Detected (NOT DETECT); Influenza B Not Detected (NOT DETECT); Mycoplasma Pneumoniae Not Detected (NOT DETECT); Parainfluenza Virus Type 1 Not Detected (NOT DETECT); Parainfluenza Virus Type 2 Not Detected (NOT DETECT); Parainfluenza Virus Type 3 Not Detected (NOT DETECT); Parainfluenza Virus Type 4 Not Detected (NOT DETECT); Respiratory Syncytial Virus A Not Detected (NOT DETECT); Respiratory Syncytial Virus B Not Detected (NOT DETECT); SARS-COV-2 Not Detected (NOT DETECT)
[2023-05-04] MEDS: FUROsemide 10 mg/mL SDV 4mL 40 MG IVP (17:16)
--- NOTE | 2023-05-04 19:51 | PC.NURSE ---
Performed bedside shift report with elis SANCHEZ (Fabiola Wilkinson). Patient requested 10mg Valium for anxiety. Explained that was not an option on current medication list. Suggested patient try the prescribed 2mg Valium dose and staff will re-assess anxiety level. Patient stated he was sure the 2mg dose of Valium would not be enough and refused the medication. States he will discharge himself against medical advice. Elis SANCHEZ (Fabiola Wilkinson), notified hospitalist (Dr. Powell) via phone call. Patient has discharged himself AMA after discussion with physician. Patient removed his IV access and left room without staff assistance. PIV observed on bedside table, tip intact. Time of discharge approximately 1929.
== END 2023-05-04 19:30 | disposition left against medical advice (07) | DRG 292 ==
LOC: ER 05:01 → CSU 08:22
PROVIDERS: Admitting Provider Family Medicine; Emergency Provider Emergency Medicine; Visit Provider Student in an Organized Health Care Education/Training Program
DX: I50.23 Acute on chronic systolic (congestive) heart failure (principal); I42.8 Other cardiomyopathies; R74.01 Elevation of levels of liver transaminase levels; R10.9 Unspecified abdominal pain; F41.0 Panic disorder [episodic paroxysmal anxiety]; Z79.82 Long term (current) use of aspirin; Z53.29 Procedure and treatment not carried out because of patient's decision for other reasons
CPT/HCPCS: 36415; 36600; 71045; 76705; 80048; 80053; 80306; 80307; 81003; 82803; 82977; 83036; 83605; 83690; 83880; 84145; 84443; 84484; 85025; 86140; 87040; 87486; 87581; 87633; 93005; 94664; 96372; 96374; 99285; C9113; J1650; J1940

== ENCOUNTER 2023-05-10 23:59 | Emergency (ER) | payer MEDICAID, SELFPAY ==
[2023-05-11 00:04] VITALS: BP 84/60; PULSE 105; RESP 22; TEMP 36.6; O2SAT 98; BMI 19.9
--- NOTE | 2023-05-11 00:10 | ECG_ITS ---
[facility] Test Date: 2023-05-11 Pat Name: Adair Gardiner Department: Room: Gender: Male Director Pharmacovigilance: : 1980 Requested By: Samuel Bazzi Order Number: [id number] Maldonado MD: Jordin Shaw M.D. Measurements Intervals [place] Rate: 104 P: 66 TX: 148 QRS: -65 QRSD: 117 T: 125 QT: 360 QTc: 475 Interpretive Statements SINUS TACHYCARDIA LEFT ATRIAL ENLARGEMENT [-0.15mV P-WAVE IN V1/V2] INCOMPLETE RIGHT BUNDLE BRANCH BLOCK [90+ ms QRS DURATION, TERMINAL R IN V1/V2, 40+ ms S IN I/aVL/V4/V5/V6] LEFT ANTERIOR FASCICULAR BLOCK [QRS AXIS <= -45, QR IN I, RS IN II] ANTEROLATERAL MYOCARDIAL INFARCTION , OF INDETERMINATE AGE [40+ ms Q WAVE IN I/aVL/V3-V6] Compared to ECG 05/04/2023 09:58:20 Incomplete right bundle-branch block now present Left anterior fascicular block now present Ectopic atrial rhythm no longer present T-wave abnormality no longer present Possible ischemia no longer present Myocardial infarct finding still present Electronically Signed On 05-11-2023 9:27:23 CDT by Jordin Shaw M.D. [id number]
--- NOTE | 2023-05-11 00:10 | XRR_ITS ---
PROCEDURE INFORMATION: Exam: XR Chest Exam date and time: 05/11/2023 12:25 AM Age: 42 years old Clinical indication: Chest pressure; Patient HX: C/O chest pain. History of cardiomegaly. ; Additional info: Cp TECHNIQUE: Imaging protocol: Radiologic exam of the chest. Views: 1 view. COMPARISON: CR (CHEST, ) 05/04/2023 3:36 AM FINDINGS: Lungs: Emphysematous changes. Pleural spaces: Unremarkable. No pleural effusion. No pneumothorax. Heart/Mediastinum: Cardiomegaly. Bones/joints: Unremarkable. XR/XR chest 1V portable [id number] IMPRESSION: 1. Negative for infiltrate. 2. Cardiomegaly. 3. Emphysematous changes.
[2023-05-11 00:26] LABS: Basophils % 0.6 %; Eosinophils # 0.1 10^3/uL (0.0-0.8); Eosinophils % 1.1 %; Hematocrit 49.1 % (37-53); Lymphocytes # 1.8 10^3/uL (0.8-4.8); Lymphocytes % 32.5 %; Mean Corpuscular HGB Conc 33.8 g/dL (30-55); Mean Corpuscular Hemoglobin 30.5 pg (27-33); Mean Corpuscular Volume 90.1 fl (82-101); Mean Platelet Volume 11.5 fL (7.4-10.4); Monocytes # 0.5 10^3/uL (0.2-0.9); Monocytes % 9.5 %; Neutrophils # 3.02 10^3/uL (1.8-7.7); Neutrophils % 56.1 %; Nucleated Red Blood Cells % 0 %; Platelet Count 187 10^3/cmm (157-399); Red Blood Count 5.45 10^6/uL (3.85-5.65); White Blood Count 5.38 10^3/uL (3.29-11.43)
[2023-05-11 00:46] LABS: Troponin(5th) Baseline 17 ng/L (0-15)
--- NOTE | 2023-05-11 00:47 | W.ED.CHESTPA ---
HPI - Chest Pain General: Chief Complaint: Chest Pain Stated Complaint: Chest pain Time Seen by Provider: 05/11/23 00:22 Source: patient Mode of arrival: ambulatory Limitations: no limitations History of Present Illness: 42-year-old male has extensive history of cardiomyopathy has been seen multiple times in the past states that he is feeling extremely anxious would like he needs IV Ativan. He states he feels like his abdomen is full as well. He does have some decreased urine intake a does not appear in any distress. No extremity swelling. Associated symptoms: Reports abdominal pain; Deny dyspnea, fever(s), nausea or vomiting Review of Systems Const: Denies: fever(s) or chills ENMT: Denies: throat pain or dental pain Card: Reports: chest pain Resp: Denies: dyspnea GI: Reports: abdominal pain; Denies: nausea, vomiting or diarrhea : Denies: dysuria Musc: Denies: neck pain or back pain Skin/Breast: Denies: rash Psych: Reports: anxiety PFS ED PFSH: Medical History Amphetamine abuse Congestive heart failure (CHF) History of kidney stones Mitral valve prolapse Non-ischemic cardiomyopathy Panic disorder Surgical History History of hand surgery Family History Other CAD (coronary artery disease) Social History Smoking and tobacco status: current every day smoker Alcohol intake: current Alcohol intake frequency: few times a month Substance/Drug Use: former Physical Exam Const: COMMON NORMALS: no acute distress, patient oriented x3 and healthy appearing HENMT: COMMON NORMALS: normocephalic and atraumatic HEAD & SCALP: normocephalic and atraumatic Eye: COMMON NORMALS: Equal, round and reactive pupils present and EOMs intact bilaterally PUPIL: Yes Equal, round and reactive pupils present Neck/C-Spine: COMMON NORMALS: full ROM and supple Chest: COMMONS NORMALS: normal inspection of the chest and normal palpation of entire chest wall Resp: COMMON NORMALS: normal respiratory effort, No retractions, No use of accessory muscles and clear to auscultation bilaterally AUSCULTATION: clear to auscultation bilaterally Cardio: COMMON NORMALS: regular rate, regular rhythm and No murmurs present (Cardio) RATE: regular rate RHYTHM: regular rhythm GI: COMMON NORMALS: Normal to inspection, nondistended, normoactive bowel sounds present, Soft to palpation, non-tender and no masses PALPATION: Yes Soft to palpation Extremity: COMMON NORMALS: normal to inspection and full ROM Neuro: COMMON NORMALS: patient oriented x3, moves all extremities and no focal motor deficits Psych: COMMON NORMALS: mental status grossly normal, Normal thought process present and cooperative THOUGHT PROCESS: Normal thought process present Skin: COMMON NORMALS: no rashes or lesions noted and no wounds GENERAL SKIN EXAM: no rashes or lesions noted Course Vital Signs: Vital signs: Vital Signs Temperature 97.9 F 05/11/23 00:04 Pulse Rate 105 H 05/11/23 00:04 Respiratory Rate 22 H 05/11/23 00:04 Blood Pressure 84/60 05/11/23 00:04 Pulse Oximetry 98 05/11/23 00:04 Oxygen Delivery Me thod Room Air 05/11/23 00:04 MDM - Chest Pain Medical Decision Making Patient presents with chest pains chronic in nature his troponin here is negative. His BNP is not elevated to his baseline x-ray is normal he feels improved after Ativan he is stable for discharge he is to follow-up with his rn clinical resource return if worsening Medical Records I reviewed the patient's medical records. Lab Data I reviewed the patient's lab results. 05/11/23 00:22 05/11/23 00:22 Laboratory Results WBC 5.38 10^3/uL (3.29-11.43) 05/11/23 00:22 RBC 5.45 10^6/uL (3.85-5.65) 05/11/23 00:22 Hgb 16.60 g/dL (11.27-16.99) 05/11/23 00:22 Hct 49.1 % (37-53) 05/11/23 00:22 MCV 90.1 fl (82-101) 05/11/23 00:22 MCH 30.5 pg (27-33) 05/11/23 00: MCHC 33.8 g/dL (30-55) 05/11/23 00:22 RDW 12.0 % (12.1-15.1) L 05/11/23 00:22 Plt Count 187 10^3/cmm (157-399) 05/11/23 00:22 MPV 11.5 fL (7.4-10.4) H 05/11/23 00:22 Neut % (Auto) 56.1 % 05/11/23 00:22 Lymph % (Auto) 32.5 % 05/11/23 00:22 [place] % (Auto) 9.5 % 05/11/23 00:22 Eos % (Auto) 1.1 % 05/11/23 00:22 Baso % (Auto) 0.6 % 05/11/23 00:22 Neut # (Auto) 3.02 10^3/uL (1.8-7.7) 05/11/23 00:22 Lymph # (Auto) 1.8 10^3/uL (0.8-4.8) 05/11/23 00:22 [place] # (Auto) 0.5 10^3/uL (0.2-0.9) 05/11/23 00:22 Eos # (Auto) 0.1 10^3/uL (0.0-0.8) 05/11/23 00:22 Baso # (Auto) 0.0 10^3/uL (0.0-0.1) 05/11/23 00:22 Nucleated RBC % (auto) 0 % 05/11/23 00:22 Nucleated RBCs # 0.0 /100WBC 05/11/23 00:22 Sodium 135 mmol/L (136-145) L 05/11/23 00:22 Potassium 4.7 mmol/L (3.5-5.1) 05/11/23 00:22 Chloride 98 mmol/L (98-107) 05/11/23 00:22 Carbon Dioxide 29 mmol/L (22-29) 05/11/23 00:22 Anion Gap 12.7 (5-19) 05/11/23 00:22 BUN 23 mg/dL (6-20) H 05/11/23 00:22 Creatinine 1.2 mg/dL (0.7-1.2) 05/11/23 00:22 GFR Calculation 66.7 mL/min (90-130) L 05/11/23 00:22 Glucose 68 mg/dL (65-115) 05/11/23 00:22 Calculated Osmolality 282 mOsm/kg (285-295) L 05/11/23 00:22 Calcium 8.5 mg/dL (8.5-10.5) 05/11/23 00:22 Total Bilirubin 0.5 mg/dL (0.15-1.2) 05/11/23 00:22 AST 49 U/L (0-40) H 05/11/23 00:22 ALT 98 U/L (0-41) H 05/11/23 00:22 Alkaline Phosphatase 111 U/L (40-130) 05/11/23 00:22 Troponin T Baseline 17 ng/L (0-15) H 05/11/23 00:22 NT-Pro-B Natriuret Pep 42732 pg/mL (0-125) H 05/11/23 00:22 Total Protein 6.3 g/dL (6.6-8.7) L 05/11/23 00:22 Albumin 4.3 g/dL (3.5-5.2) 05/11/23 00:22 Globulin 2.0 g/dL (1.3-4.6) 05/11/23 00:22 Discharge Plan Discharge Patient Disposition: Home Clinical Impression: Chest pain Condition: Stable Prescriptions: No Action aspirin 81 mg Tablet,Chewable 81 mg PO DAILY krill oil 500 mg Capsule 500 mg PO TID furosemide 40 mg Tablet 40 mg PO BID@08,16 Qty: 60 0RF doxycycline monohydrate 100 mg Tablet 100 mg PO BID Qty: 6 0RF metoprolol tartrate 25 mg Tablet 25 mg PO BID@0900,2100 Qty: 60 0RF lisinopril 5 mg tablet 5 mg PO DAILY Qty: 30 0RF diazepam [Valium] 2 mg tablet 2 mg PO BID PRN (Reason: anxiety) Qty: 10 0RF albuterol sulfate 90 mcg/actuation HFA aerosol inhaler 2 inh INHALATION Q6H PRN (Reason: Shortness Of Breath) Discharge Orders: Discharge ED (Routine); Ordered 05/11/23 Ordered By: Samuel Bazzi Discharge Diet: Advance as tolerated Discharge Activity: Resume usual activity Patient Instructions: Chest Pain (ED) Coding Level of Care Code ED Hobbing Machine Operator for Chg Amanda
[2023-05-11 01:04] LABS: Alanine Aminotransferase 98 U/L (0-41); Albumin Level 4.3 g/dL (3.5-5.2); Alkaline Phosphatase 111 U/L (40-130); Aspartate Amino Transferase 49 U/L (0-40); Blood Urea Nitrogen 23 mg/dL (6-20); Calcium 8.5 mg/dL (8.5-10.5); Carbon Dioxide 29 mmol/L (22-29); Chloride 98 mmol/L (98-107); Glomerular Filtration Rate 66.7 mL/min (90-130); Glucose 68 mg/dL (65-115); NT Pro B Type Natriuretic Pept 11843 pg/mL (0-125); Osmolality Calculated 282 mOsm/kg (285-295); Sodium 135 mmol/L (136-145); Total Bilirubin 0.5 mg/dL (0.15-1.2); Total Protein 6.3 g/dL (6.6-8.7)
[2023-05-11] MEDS: LORazepam 2 mg/mL INJ 1 mL 0.5 MG IVP (01:05)
[2023-05-11 01:09] LABS: Anion Gap 12.7 (5-19); Potassium 4.7 mmol/L (3.5-5.1)
[2023-05-11] MEDS: LORazepam 1 mg Tablet PO (01:51)
[2023-05-11] MEDS: HYDROcodone-acetaminophen 5-325 mg Tablet 1 TAB PO (01:54)
--- NOTE | 2023-05-11 02:06 | PC.NURSE ---
Patient refused to sign dc paperwork.
== END 2023-05-11 02:07 | disposition home or self-care (01) ==
PROVIDERS: Emergency Provider Emergency Medicine
DX: R07.9 Chest pain, unspecified (principal); Z79.82 Long term (current) use of aspirin; I50.9 Heart failure, unspecified; F17.210 Nicotine dependence, cigarettes, uncomplicated
CPT/HCPCS: 36415; 71045; 80053; 83880; 84484; 85025; 93005; 96374; 99285; J2060

== ENCOUNTER 2023-05-15 23:39 | Emergency (ER) | payer MEDICAID, SELFPAY ==
[2023-05-15 23:41] VITALS: BP 91/73; PULSE 92; RESP 27; TEMP 36.9; O2SAT 96; BMI 20.1
--- NOTE | 2023-05-16 00:08 | PC.NURSE ---
Hadley CONTI assessed patient and determined he does not need to be on suicidal precautions.
--- NOTE | 2023-05-16 00:17 | W.ED.CHESTPA ---
HPI - Chest Pain General: Chief Complaint: Chest Pain Stated Complaint: PAIN ALL OVER Time Seen by Provider: 05/15/23 23:44 Source: patient Mode of arrival: EMS Limitations: no limitations History of Present Illness: Patient presents to the emergency department today for evaluation treatment of chronic and recurrent chest pains and anxiety. Patient is well-known to the emergency department and was most recently here approximately 5 days ago. Patient has nonischemic cardiomyopathy. Patient reports that today he saw a new primary care doctor to become established. He states that she told him he can no longer exert himself and prescribed him a wheelchair. He also states she was going to prescribe him thyroid medication, an iron supplement, and benzos for anxiety. However, she ordered lab work to see his levels and, states after they coco his blood he was taken to his car without any of his prescriptions. He reports that the primary care doctor told him he only has a month or 2 to live and requires a heart transplant however, she is not sure he will make it that long. He states that she provided him a folder of all of his cardiac information and told him that if he has issues he should try and drive himself to [facility] so they can admit him there and get treated sooner. However, tonight he was trying to process this information and developed severe anxiety. Patient reports he is trying to process through but states his is in denial-he states she believes he will get better, and he is also concerned for his 11-year-old daughter. He states he does not want her to find him 1 day. He admitted to me that he has come to terms that he is going to and he was fine with that. However, that, it was overheard by EMS and there was concerns in the report from EMS to the nursing staff that the patient may be suicidal. I specifically asked the patient if he had any desire to kill himself. He indicated he did not and states he has no plans to kill himself. After talking to the patient for quite some time it does appear that the patient is processing the news and his comment about dying was misinterpreted. Patient again complains of retrosternal chest discomfort but acute worsening of his anxiety. He states he has no medication at home to take for his anxiety. Chart review shows that when he was here several days ago he was also here for anxiety and treated with IV Ativan with noted improvement. He reports using Valium in the past with good result of anxiety control but, states the primary care doctor did not provide him medication for his anxiety today. Review of Systems General: Reports: 10 or more systems reviewed and unremarkable except in HPI and below PFSH ED PFSH: Medical History Amphetamine abuse Congestive heart failure (CHF) History of kidney stones Mitral valve prolapse Non-ischemic cardiomyopathy Panic disorder Surgical History History of hand surgery Family History Other CAD (coronary artery disease) Hypertension Denies family history of Diabetes Cancer Social History Smoking and tobacco status: former smoker Second hand smoke exposure: No Smoking risk assessment/counseling performed?: Yes Alcohol intake: current Alcohol intake frequency: few times a month Desire information about alcohol rehabilitation?: No Counseling given: No Substance/Drug Use: former Desire information about substance/drug rehabilitation?: No Counseling given: No Adopted: No Caregiver/support person: No Lives independently: Yes Household members: significant other and children Housing: House Marital status: Single Number of children: 2 service: Yes Current occupational status: unemployed Do you think of yourself as: Straight/Heterosexual Current gender identity: Male Physical Exam Const: COMMON NORMALS: patient oriented x3 and alert; negative for healthy appearing Eye: COMMON NORMALS: Equal, round and reactive pupils present, EOMs intact bilaterally and conjunctivae normal CONJUNCTIVA: Yes conjunctivae normal PUPIL: Yes Equal, round and reactive pupils present Neck/C-Spine: COMMON NORMALS: full ROM and no meningeal signs Resp: EFFORT & INSPECTION: No able to speak in complete sentences, Yes decreased respiratory effort, No grunting and No stridor OTHER: On 3 L by nasal cannula, pulse ox 96% Cardio: COMMON NORMALS: regular rate RATE: regular rate Extremity: COMMON NORMALS: full ROM and no pedal edema Neuro: COMMON NORMALS: patient oriented x3 SENSORIUM/ORIENTATION: Yes alert MENINGEAL SIGNS: Yes no meningeal signs Course Vital Signs: Vital signs: Vital Signs Temperature 98.4 F 09/07/23 23:41 Pulse Rate 87 05/16/23 02:00 Respiratory Rate 19 H 05/16/23 02:00 Blood Pressure 89/64 05/16/23 02:00 Pulse Oximetry 93 05/16/23 02:00 Oxygen Delivery Me thod Nasal Cannula 05/15/23 23:41 Oxygen Flow Rate 3 05/15/23 23:41 MDM - Chest Pain Medical Decision Making I spent quite a lot of time at bedside with the patient listening to his current situation. There was concerns that the patient was possibly suicidal but, after talking with the patient, patient is not suicidal and does not have any intention of harming himself. He has no plans to harm himself or others. He states he was told he only had a very short amount of time to live and had indicated that he was ready to and there may have been some component of that lost in translation. Patient has significant increase in his anxiety do to his primary care visit today. He has a lot of concern about his family-especially his daughter. Patient's lab work is at his typical baseline. I did go over them all with Dr. Guerra. Patient was given Ativan for his anxiety which has worked in the past but, patient states today he has not noticed any difference. Patient's chart indicates he has used and tolerated Valium. Patient was given a small dose of Valium here in the emergency department and, Dr. Guerra was willing to write a short course prescription for him. Patient was encouraged to call his primary care office for [facility] in the morning to make them aware that he did not receive the prescriptions they had discussed at his appointment earlier today including the iron pills and thyroid medication. He also indicated that they had discussed a benzo for anxiety. Discussed all this with the patient who seemed in agreement with the treatment plan. Differential Diagnosis Unlikely acute respiratory failure, acute myocardial infarction or cardiac arrest (Chronic CHF, severe anxiety, acute situational anxiety) Lab Data 05/16/23 00:21 05/16/23 00:21 Laboratory Results WBC 7.41 10^3/uL (3.29-11.43) 05/16/23 00:21 RBC 5.67 10^6/uL (3.85-5.65) H 05/16/23 00:21 Hgb 17.40 g/dL (11.27-16.99) H 05/16/23 00:21 Hct 50.1 % (37-53) 05/16/23 00:21 MCV 88.4 fl (82-101) 05/16/23 00:21 MCH 30.7 pg (27-33) 05/16/23 00:21 MCHC 34.7 g/dL (30-55) 05/16/23 00:21 RDW 11.9 % (12.1-15.1) L 05/16/23 00:21 Plt Count 296 10^3/cmm (157-399) 05/16/23 00:21 MPV 10.7 fL (7.4-10.4) H 05/16/23 00:21 Neut % (Auto) 63.3 % 05/16/23 00:21 Lymph % (Auto) 26.9 % 05/16/23 00:21 Esmeralda % (Auto) 6.7 % 05/16/23 00:21 Eos % (Auto) 1.9 % 05/16/23 00:21 Baso % (Auto) 0.8 % 05/16/23 00:21 Neut # (Auto) 4.69 10^3/uL (1.8-7.7) 05/16/23 00:21 Lymph # (Auto) 2.0 10^3/uL (0.8-4.8) 05/16/23 00:21 Esmeralda # (Auto) 0.5 10^3/uL (0.2-0.9) 05/16/23 00:21 Eos # (Auto) 0.1 10^3/uL (0.0-0.8) 05/16/23 00:21 Baso # (Auto) 0.1 10^3/uL (0.0-0.1) 05/16/23 00:21 Nucleated RBC % (auto) 0 % 05/16/23 00: Nucleated RBCs # 0.0 /100WBC 05/16/23 00:21 Sodium 137 mmol/L (136-145) 05/16/23 00:21 Potassium 4.6 mmol/L (3.5-5.1) 05/16/23 00:21 Chloride 101 mmol/L (98-107) 05/16/23 00:21 Carbon Dioxide 22 mmol/L (22-29) 09/08/23 00:21 Anion Gap 18.6 (5-19) 05/16/23 00:21 BUN 28 mg/dL (6-20) H 05/16/23 00:21 Creatinine 1.3 mg/dL (0.7-1.2) H 05/16/23 00:21 GFR Calculation 60.8 mL/min (90-130) L 05/16/23 00:21 Glucose 94 mg/dL (65-115) 05/16/23 00:21 Calculated Osmolality 289 mOsm/kg (285-295) 05/16/23 00:21 Calcium 8.7 mg/dL (8.5-10.5) 05/16/23 00:21 Total Bilirubin 0.4 mg/dL (0.15-1.2) 05/16/23 00:21 AST 30 U/L (0-40) 05/16/23 00:21 ALT 70 U/L (0-41) H 05/16/23 00:21 Alkaline Phosphatase 110 U/L (40-130) 05/16/23 00:21 Troponin T Baseline 18 ng/L (0-15) H 05/16/23 00:21 NT-Pro-B Natriuret Pep 23720 pg/mL (0-125) H 05/16/23 00:21 Total Protein 6.5 g/dL (6.6-8.7) L 05/16/23 00:21 Albumin 4.2 g/dL (3.5-5.2) 05/16/23 00:21 Globulin 2.3 g/dL (1.3-4.6) 05/16/23 00:21 Discharge Plan Discharge Patient Disposition: Home Clinical Impression: Non-ischemic cardiomyopathy, Situational anxiety Condition: Stable Prescriptions: New Valium 2 mg tablet 1 mg PO BID PRN (Reason: anxiety) Qty: 10 0RF No Action (DME) wheel chair See Rx Instructions .Route .MEDSUPPLY Qty: 1 0RF Rx Instructions: As directed aspirin 81 mg Tablet,Chewable 81 mg PO DAILY krill oil 500 mg Capsule 500 mg PO TID furosemide 40 mg Tablet 40 mg PO BID@08,16 Qty: 60 0RF metoprolol tartrate 25 mg Tablet 25 mg PO BID@0900,2100 Qty: 60 0RF lisinopril 5 mg tablet 5 mg PO DAILY Qty: 30 0RF diazepam [Valium] 2 mg tablet 2 mg PO BID PRN (Reason: anxiety) Qty: 10 0RF albuterol sulfate 90 mcg/actuation HFA aerosol inhaler 2 inh INHALATION Q6H PRN (Reason: Shortness Of Breath) Discharge Orders: Discharge ED (Routine); Ordered 05/16/23 Ordered By: Kaila Butcher Discharge Diet: As Directed Discharge Activity: Limit activity as instructed Activity Restrictions/Additional Instructions: Evaluation here in the ER today showed no acute changes in your baseline. After speaking with you, i understand today was very stressful and you are processing a lot of information at this time. Given your increased anxiety during this time, we did provide you mediation here in the ER and the ER physician here all[facility] has also written a prescription for you to have on hand for times of increased anxiety. However, we do recommend you call your PCP office tomorrow to check up on the prescriptions you were supposed to have written for you for your other chronic issues (iron, thyroid...) from your appointment today. Coding Level of Care Code ED Life Trainer for Michelle Patel
[2023-05-16] MEDS: LORazepam 2 mg/mL INJ 1 mL 1 MG IVP (00:22)
[2023-05-16 00:34] LABS: Basophils # 0.1 10^3/uL (0.0-0.1); Basophils % 0.8 %; Eosinophils # 0.1 10^3/uL (0.0-0.8); Eosinophils % 1.9 %; Hematocrit 50.1 % (37-53); Lymphocytes % 26.9 %; Mean Corpuscular HGB Conc 34.7 g/dL (30-55); Mean Corpuscular Hemoglobin 30.7 pg (27-33); Mean Corpuscular Volume 88.4 fl (82-101); Mean Platelet Volume 10.7 fL (7.4-10.4); Monocytes # 0.5 10^3/uL (0.2-0.9); Monocytes % 6.7 %; Neutrophils # 4.69 10^3/uL (1.8-7.7); Neutrophils % 63.3 %; Nucleated Red Blood Cells % 0 %; Platelet Count 296 10^3/cmm (157-399); Red Blood Count 5.67 10^6/uL (3.85-5.65); Red Cell Distribution Width 11.9 % (12.1-15.1); White Blood Count 7.41 10^3/uL (3.29-11.43)
[2023-05-16 01:09] LABS: Troponin(5th) Baseline 18 ng/L (0-15)
[2023-05-16 01:16] LABS: Albumin Level 4.2 g/dL (3.5-5.2); Total Bilirubin 0.4 mg/dL (0.15-1.2)
[2023-05-16 02:00] VITALS: BP 89/64; PULSE 87; RESP 19; O2SAT 93
[2023-05-16 02:05] LABS: Alkaline Phosphatase 110 U/L (40-130); Blood Urea Nitrogen 28 mg/dL (6-20); Calcium 8.7 mg/dL (8.5-10.5); Carbon Dioxide 22 mmol/L (22-29); Chloride 101 mmol/L (98-107); Globulin 2.3 g/dL (1.3-4.6); Glomerular Filtration Rate 60.8 mL/min (90-130); Glucose 94 mg/dL (65-115); NT Pro B Type Natriuretic Pept 21549 pg/mL (0-125); Osmolality Calculated 289 mOsm/kg (285-295); Sodium 137 mmol/L (136-145); Total Protein 6.5 g/dL (6.6-8.7)
[2023-05-16 02:06] LABS: Alanine Aminotransferase 70 U/L (0-41); Anion Gap 18.6 (5-19); Aspartate Amino Transferase 30 U/L (0-40); Potassium 4.6 mmol/L (3.5-5.1)
[2023-05-16] MEDS: diazePAM 2 mg Tablet 1 MG PO (02:46)
[2023-05-16 02:53] VITALS: BP 85/62; PULSE 84; RESP 16; O2SAT 93
--- NOTE | 2023-05-16 02:54 | PC.NURSE ---
[facility] notified of bp, no concern given pt history.
== END 2023-05-16 03:23 | disposition home or self-care (01) ==
PROVIDERS: Emergency Provider Physician Assistant
DX: I42.8 Other cardiomyopathies (principal); F41.8 Other specified anxiety disorders; Z79.82 Long term (current) use of aspirin; Z87.891 Personal history of nicotine dependence; I50.9 Heart failure, unspecified
CPT/HCPCS: 36415; 80053; 83880; 84443; 84484; 85025; 86800; 96374; 99284; J2060

== ENCOUNTER → 2023-06-10 13:16 | Outpatient (BNVA) | payer MEDICAID, SELFPAY | PROVIDERS: PCP Nurse Practitioner; Visit Provider Nurse Practitioner | DX: I50.9 Heart failure, unspecified (principal) | CPT/HCPCS: 80048 ==

== ENCOUNTER → 2023-07-11 08:38 | Outpatient (BNVA) | payer MEDICAID, SELFPAY | PROVIDERS: PCP Nurse Practitioner; Visit Provider Nurse Practitioner | DX: F41.0 Panic disorder [episodic paroxysmal anxiety] (principal); I42.8 Other cardiomyopathies | CPT/HCPCS: 84439; 84443; 84481 ==

== ENCOUNTER → 2023-08-12 10:39 | Outpatient (BNVA) | payer MEDICAID, SELFPAY | PROVIDERS: PCP Nurse Practitioner; Visit Provider Nurse Practitioner | DX: I50.9 Heart failure, unspecified (principal); I42.8 Other cardiomyopathies | CPT/HCPCS: 80048; 83880 ==

== ENCOUNTER 2025-08-22 17:58 | Emergency (ER) | payer MEDICAID, SELFPAY ==
[2025-08-22 18:00] VITALS: BP 159/119; PULSE 78; RESP 18; TEMP 36.5; O2SAT 97
--- NOTE | 2025-08-22 18:10 | ECG_ITS ---
[facility] 2025-08-22 Pat Name: Adair Gardiner Department: Room: Gender: Male Structural Drafter: : 1980 Requested By: Raymundo Francis Order Number: [id number] Maldonado MD: Alicia Tuttle M.D. Measurements Intervals [place] Rate: 74 P: 67 TX: 209 QRS: -44 QRSD: 121 T: 72 QT: 374 QTc: 417 Interpretive Statements SINUS RHYTHM LEFT AXIS DEVIATION [QRS AXIS < -30] POSSIBLE RIGHT VENTRICULAR CONDUCTION DELAY [RSR (QR) IN V1/V2] VOLTAGE CRITERIA FOR LVH [MEETS CRITERIA IN ONE OF: R(aVL), S(V1), R(V5), R(V5/V6)+S(V1)] Compared to ECG 05/11/2023 00:54:48 Left-axis deviation now present Left ventricular hypertrophy now present Sinus tachycardia no longer present Atrial abnormality no longer present.Incomplete right bundle-branch block no longer present,Left anterior fascicular block no longer present Myocardial infarct finding no longer present Electronically Signed On 08-23-2025 21:50:12 [employer] by Alicia Tuttle M.D. [email or web address]
[2025-08-22 18:38] VITALS: RESP 18; O2SAT 99
--- NOTE | 2025-08-22 18:48 | W.ED.ALCOHOL ---
HPI - Alcohol General: Chief Complaint: Alcohol Stated Complaint: cp, sob Time Seen by Provider: 08/22/25 18:20 Source: patient Mode of arrival: ambulatory Limitations: no limitations History of Present Illness: Patient is a 44-year-old male who presents the emergency department complaining of alcohol withdrawals. This patient has drank heavily for the past 8 months, he states normally he has about 750 mL of vodka or any other hard liquor he can get his hands on, and that last he had this yesterday and stopped cold turkey because he states that he wants to quit drinking due to how it has been affecting his life. He does note that earlier this morning he drank half a bottle of wine to help ease some of the withdrawal symptoms, but overall condition has worsened throughout the day. He is endorsing tremors, anxiety, chest pain, and feeling nauseous. He states that he is confident he can stop drinking he just needs some help with the symptoms, specifically stating that he does not want any assistance with rehabilitation. He further is not endorsing any hallucinations, SI, or HI. He is not reporting fevers, at this time he is not tachycardic, severely agitated, or disoriented. He is not reporting any vomiting or diarrhea, he does report a headache. CIWA of 18. He states that he currently does not have a primary care provider as he was fired by his last doctor. MD complaint: alcohol withdrawal Last drink: Hours (ago) Chronic alcohol use: Yes Associated symptoms: Reports involuntary movements (Tremors) and nausea; Deny abdominal pain or vomiting Related Data Home Medications ?Medication ?Instructions ?Recorded ?Confirmed aspirin 81 mg chewable tablet 81 mg PO DAILY 04/28/23 06/10/23 krill oil 500 mg capsule 500 mg PO TID 04/28/23 06/10/23 Previous Rx's ?Medication ?Instructions ?Recorded wheel chair #1 ea 05/15/23 atorvastatin 40 mg tablet 40 mg PO DAILY #30 tabs 07/11/23 empagliflozin 10 mg tablet 10 mg PO DAILY #30 tabs 07/11/23 furosemide 40 mg tablet 40 mg PO BID PRN edema #60 tabs 07/11/23 sacubitril 24 mg-valsartan 26 mg 1 tab PO BID #60 tabs 07/11/23 tablet spironolactone 25 mg tablet 25 mg PO DAILY #30 tabs 07/11/23 carvedilol 6.25 mg tablet 6.25 mg PO BID #1 tab 08/18/23 zolpidem 10 mg tablet 5 - 10 mg (0.5 - 1 x 10 mg) PO 06/07/24 .qhs PRN sleep #30 tabs diazepam 10 mg tablet 10 mg PO TID anxiety #90 tabs 06/28/24 Allergies Allergy/AdvReac Type Severity Reaction Status Date / Time ondansetron Allergy ADR-Vomitin Verified 08/18/23 14:18 g Review of Systems General: Reports: 10 or more systems reviewed and unremarkable except in HPI and below Const: Reports: other (Reports alcohol withdrawal); Denies: fever(s), chills or fatigue Eyes: Denies: change in vision ENMT: Denies: throat pain, ear or mastoid pain or nasal discharge Card: Reports: chest pain; Denies: palpitations, swelling of feet/ankles or lightheadedness Resp: Denies: dyspnea, productive cough or wheezing GI: Reports: nausea; Denies: abdominal pain, vomiting, diarrhea or constipation : Denies: flank pain, difficulty urinating, dysuria or urinary frequency Musc: Denies: neck pain, back pain or joint pain Skin/Breast: Denies: rash Neuro: Reports: headache(s) and involuntary movements (Tremors); Denies: numbness in extremities or weakness in extremities PFSH ED PFSH: Medical History Requires oxygen therapy Panic disorder Amphetamine abuse Non-ischemic cardiomyopathy History of kidney stones Mitral valve prolapse Congestive heart failure (CHF) Surgical History History of hand surgery Family History Other CAD (coronary artery disease) Hypertension Denies family history of Diabetes Cancer Social History Smoking and tobacco/nicotine status: former use of tobacco/nicotine Second hand smoke exposure: No Alcohol intake: current Alcohol intake frequency: few times a month Substance/Drug Use: former Adopted: No Caregiver/support person: No Lives independently: Yes Household members: significant other and children Housing: House Marital status: Single Number of children: 2 service: Yes Current occupational status: unemployed Do you think of yourself as: Straight/Heterosexual Current gender identity: Male Physical Exam Const: COMMON NORMALS: no acute distress, patient oriented x3 and no limitations GENERAL APPEARANCE: cooperative, well developed and anxious ORIENTATION/CONSCIOUSNESS: Yes awake, Yes oriented to person, Yes oriented to place and Yes oriented to time OTHER: Tremulous HENMT: COMMON NORMALS: normocephalic, atraumatic and hearing grossly normal bilaterally HEAD & SCALP: normocephalic and atraumatic Eye: COMMON NORMALS: Equal, round and reactive pupils present and EOMs intact bilaterally PUPIL: Yes Equal, round and reactive pupils present Neck/C-Spine: COMMON NORMALS: full ROM, supple and no JVD Resp: COMMON NORMALS: normal respiratory effort, No retractions, No use of accessory muscles and clear to auscultation bilaterally AUSCULTATION: clear to auscultation bilaterally Cardio: COMMON NORMALS: no JVD, regular rate, regular rhythm, No clicks present (Cardio), No murmurs present (Cardio) and No rub (Cardio) RATE: regular rate RHYTHM: regular rhythm GI: COMMON NORMALS: Normal to inspection, nondistended, normoactive bowel sounds present, Soft to palpation and non-tender AUSCULTATION: Yes normoactive bowel sounds PALPATION: Yes Soft to palpation RECTAL EXAM: Yes deferred Extremity: COMMON NORMALS: normal to inspection, full ROM and capillary refill normal Neuro: COMMON NORMALS: patient oriented x3, CN's II-XII intact bilaterally, moves all extremities, no focal motor deficits and no sensory deficits noted SENSORIUM/ORIENTATION: Yes oriented to person, Yes oriented to place and Yes oriented to time SPEECH: speech normal Psych: THOUGHT CONTENT: No Suicidality present, No Homicidality present and No Hallucination(s) present Skin: COMMON NORMALS: no rashes or lesions noted GENERAL SKIN EXAM: no rashes or lesions noted Course Vital Signs: Vital signs: Vital Signs Temperature 97.7 F 08/22/25 18:00 Pulse Rate 78 08/22/25 18:00 Respiratory Rate 18 08/22/25 18:38 Blood Pressure 159/119 08/22/25 18:00 Pulse Oximetry 99 08/22/25 18:38 Oxygen Delivery Me thod Room Air 08/22/25 18:38 MDM - Alcohol Medical Decision Making Patient 44-year-old male with alcohol withdrawal syndrome, uncomplicated, appropriate for discharge or short-term benzodiazepine therapy. Clinical examination ruled out delirium tremens, and the patient demonstrated mild withdrawal symptoms that responded well to diazepam in the emergency department. CIWA of 18. Laboratory workup including complete blood count and metabolic panel was unremarkable. The patient meets criteria for ambulatory management, he declined wanting resources for rehabilitation, he did not have any complaints of SI or other mental illness that would warrant inpatient placement at this time. He has no previous history of complicated withdrawal such as seizures or delirium, and he has ability to comply with follow-up care. Despite his refusal for rehabilitation resources, patient was strongly counseled to seek care at our crisis center if his withdrawal symptoms recur. The patient was also instructed to return immediately for any suicidal ideation, homicidal ideation, or other concerning symptoms. Lab Data 08/22/25 18:40 08/22/25 18:40 Laboratory Results WBC 6.37 10^3/uL (3.29-11.43) 08/22/25 18:40 RBC 5.65 10^6/uL (3.85-5.65) 08/22/25 18:40 Hgb 17.80 g/dL (11.27-16.99) H 08/22/25 18:40 Hct 51.0 % (37-53) 08/22/25 18:40 MCV 90.3 fl (82-101) 08/22/25 18:40 MCH 31.5 pg (27-33) 08/22/25 18:40 MCHC 34.9 g/dL (30-55) 08/22/25 18:40 RDW 11.1 % (12.1-15.1) L 08/22/25 18:40 Plt Count 204 10^3/cmm (157-399) 08/22/25 18:40 MPV 9.7 fL (7.4-10.4) 08/22/25 18:40 Neut % (Auto) 57.0 % 08/22/25 18:40 Lymph % (Auto) 28.6 % 08/22/25 18:40 Ogle % (Auto) 9.9 % 08/22/25 18:40 Eos % (Auto) 3.1 % 08/22/25 18:40 Baso % (Auto) 1.1 % 08/22/25 18:40 Neut # (Auto) 3.63 10^3/uL (1.8-7.7) 08/22/25 18:40 Lymph # (Auto) 1.8 10^3/uL (0.8-4.8) 08/22/25 18:40 Ogle # (Auto) 0.6 10^3/uL (0.2-0.9) 08/22/25 18:40 Eos # (Auto) 0.2 10^3/uL (0.0-0.8) 08/22/25 18:40 Baso # (Auto) 0.1 10^3/uL (0.0-0.1) 08/22/25 18:40 Nucleated RBC % (auto) 0 % 08/22/25 18:40 Nucleated RBCs # 0.0 /100WBC 08/22/25 18:40 Sodium 136 mmol/L (136-145) 08/22/25 18:40 Potassium 4.1 mmol/L (3.5-5.1) 08/22/25 18:40 Chloride 99 mmol/L (98-107) 08/22/25 18:40 Carbon Dioxide 23 mmol/L (22-29) 08/22/25 18:40 Anion Gap 18.1 (5-19) 08/22/25 18:40 BUN 14 mg/dL (6-20) 08/22/25 18:40 Creatinine 1.0 mg/dL (0.7-1.2) 08/22/25 18:40 GFR Calculation 81.6 mL/min (90-130) L 08/22/25 18:40 Glucose 114 mg/dL (65-115) 08/22/25 18:40 Calculated Osmolality 283 mOsm/kg (285-295) L 08/22/25 18:40 Calcium 9.8 mg/dL (8.5-10.5) 08/22/25 18:40 Magnesium 2.4 mg/dL (1.7-2.3) H 08/22/25 18:40 Total Bilirubin 0.6 mg/dL (0.15-1.2) 08/22/25 18:40 AST 29 U/L (0-40) 08/22/25 18:40 ALT 32 U/L (0-41) 08/22/25 18:40 Alkaline Phosphatase 153 U/L (40-130) H 08/22/25 18:40 Total Protein 7.8 g/dL (6.6-8.7) 08/22/25 18:40 Albumin 4.8 g/dL (3.5-5.2) 08/22/25 18:40 Globulin 3.0 g/dL (1.3-4.6) 08/22/25 18:40 Urine Opiates Screen Negative ng/mL (Negative) 08/22/25 20:08 Ur Barbiturates Screen Negative ng/mL (Negative) 08/22/25 20:08 Ur Phencyclidine Scrn Negative ng/mL (Negative) 08/22/25 20:08 Ur Amphetamines Screen Negative ng/mL (Negative) 08/22/25 20:08 U Benzodiazepines Scrn Positive ng/mL (Negative) H 08/22/25 20:08 Urine Cocaine Screen Negative ng/mL (Negative) 08/22/25 20:08 U Marijuana (THC) Screen Negative ng/mL (Negative) 08/22/25 20:08 Ethyl Alcohol < 10 mg/dL (0-10) 08/22/25 18:40 No radiology studies performed this visit Discharge Plan Discharge Patient Disposition: Home Clinical Impression: Alcohol withdrawal syndrome Qualifiers: Complication of substance-induced condition: uncomplicated Qualified Code(s): F10.930 - Alcohol use, unspecified with withdrawal, uncomplicated Condition: Stable Prescriptions: No Action (DME) wheel chair See Rx Instructions .Route .MEDSUPPLY Qty: 1 0RF Rx Instructions: As directed carvedilol 6.25 mg tablet 6.25 mg PO BID Qty: 1 0RF Rx Instructions: must administer with a meal/food atorvastatin 40 mg tablet 40 mg PO DAILY Qty: 30 0RF empagliflozin 10 mg tablet 10 mg PO DAILY Qty: 30 0RF furosemide 40 mg tablet 40 mg PO BID PRN (Reason: edema) Qty: 60 0RF sacubitril-valsartan 24-26 mg tablet 1 tab PO BID Qty: 60 0RF spironolactone 25 mg tablet 25 mg PO DAILY Qty: 30 0RF zolpidem 10 mg tablet 5 - 10 mg PO .qhs PRN (Reason: sleep) Qty: 30 1RF diazepam 10 mg tablet 10 mg PO TID Qty: 90 0RF aspirin 81 mg Tablet,Chewable 81 mg PO DAILY krill oil 500 mg Capsule 500 mg PO TID Discharge Orders: Discharge ED (Routine); Ordered 08/22/25 Ordered By: Raymundo Street Patient Instructions: Patient Portal & Kait Instructions Activity Restrictions/Additional Instructions: Discharge Instructions Diagnosis: Alcohol Withdrawal Syndrome Medications Prescribed: - Diazepam (Valium) 5 mg tablets for breakthrough withdrawal symptoms as needed --- Important Safety Information About Your Medication: Do NOT drink alcohol while taking diazepam. Combining alcohol with diazepam can cause dangerous respiratory depression and . You must remain abstinent from alcohol while using this medication. Do NOT use opioids or other sedating medications with diazepam, as this combination can cause life-threatening respiratory depression. Do NOT drive or operate heavy machinery for the first few days after taking diazepam, as it can cause drowsiness and impair your ability to perform these activities safely. If you feel drowsy after taking diazepam, reduce your dose. Do NOT stop diazepam abruptly if you have been taking it regularly for several days. Sudden discontinuation can cause seizures and other serious withdrawal symptoms. Use only as directed for breakthrough symptoms. --- When to Take Diazepam: Take diazepam 5 mg only if you experience withdrawal symptoms such as tremors, sweating, rapid heartbeat, anxiety, or agitation. You may take additional doses as needed for symptom control, but follow the dosing instructions carefully and do not exceed recommended amounts. --- Monitoring Your Symptoms: Alcohol withdrawal symptoms typically peak within 24-72 hours after your last drink and may include tremors, sweating, rapid heartbeat, anxiety, nausea, and insomnia. Most symptoms improve within 5 days. --- When to Seek Emergency Care - Go to the Emergency Department or Crisis Center Immediately if You Experience: - Seizures or convulsions - Severe confusion or disorientation (delirium) - Visual or auditory hallucinations - Fever above 101?F - Severe tremors that do not improve with medication - Chest pain or difficulty breathing - Suicidal thoughts or thoughts of harming yourself - Thoughts of harming others - Worsening withdrawal symptoms despite taking diazepam --- Follow-Up Care: While you have declined rehabilitation services at this time, you are strongly encouraged to seek help at a crisis center or addiction treatment facility if withdrawal symptoms recur or if you wish to address your alcohol use. Consider follow-up with your primary care provider within 1-2 weeks to discuss long-term management options for alcohol use disorder, including medications that can help reduce cravings and prevent relapse. --- Additional Recommendations: - Stay well-hydrated by drinking water and electrolyte-containing beverages - Eat regular, nutritious meals - Get adequate rest - Avoid situations or triggers that may lead to alcohol use - Keep the crisis center phone number readily available Crisis Resources: - National Suicide Prevention Lifeline: 988 - [facility] National Helpline: (31/03 free and confidential) Print Language: Maltese Coding Level of Care Code ED Planishing Hammer Operator for Michelle Patel
[2025-08-22 18:51] LABS: Hematocrit 51.0 % (37-53); Hemoglobin 17.80 g/dL (11.27-16.99); Mean Corpuscular HGB Conc 34.9 g/dL (30-55); Mean Corpuscular Hemoglobin 31.5 pg (27-33); Mean Corpuscular Volume 90.3 fl (82-101); Nucleated Red Blood Cells % 0 %; Platelet Count 204 10^3/cmm (157-399); Red Blood Count 5.65 10^6/uL (3.85-5.65); White Blood Count 6.37 10^3/uL (3.29-11.43)
[2025-08-22 19:28] LABS: Alanine Aminotransferase 32 U/L (0-41); Albumin Level 4.8 g/dL (3.5-5.2); Alkaline Phosphatase 153 U/L (40-130); Anion Gap 18.1 (5-19); Aspartate Amino Transferase 29 U/L (0-40); Blood Urea Nitrogen 14 mg/dL (6-20); Calcium 9.8 mg/dL (8.5-10.5); Carbon Dioxide 23 mmol/L (22-29); Chloride 99 mmol/L (98-107); Globulin 3.0 g/dL (1.3-4.6); Glucose 114 mg/dL (65-115); Magnesium 2.4 mg/dL (1.7-2.3); Osmolality Calculated 283 mOsm/kg (285-295); Potassium 4.1 mmol/L (3.5-5.1); Sodium 136 mmol/L (136-145); Total Protein 7.8 g/dL (6.6-8.7)
[2025-08-22 19:30] LABS: Alcohol Level < 10 mg/dL (0-10)
[2025-08-22 20:36] LABS: PCP Screen Urine Negative (Negative)
[2025-08-22 21:18] VITALS: BP 135/95
[2025-08-22 21:26] VITALS: BP 124/89; PULSE 77; O2SAT 95
== END 2025-08-22 21:28 | disposition home or self-care (01) ==
PROVIDERS: Emergency Provider Physician Assistant
DX: F10.930 Alcohol use, unspecified with withdrawal, uncomplicated (principal); Z79.82 Long term (current) use of aspirin; Z87.891 Personal history of nicotine dependence; I50.9 Heart failure, unspecified
CPT/HCPCS: 36415; 80053; 80306; 80307; 83735; 85025; 93005; 99284; J9999

== ENCOUNTER 2025-08-26 08:36 | Emergency (ER) | payer MEDICAID, SELFPAY ==
[2025-08-26 08:41] VITALS: BP 159/112; PULSE 81; RESP 16; TEMP 36.3; O2SAT 98; BMI 21.2
--- NOTE | 2025-08-26 09:13 | W.ED.ANXIETY ---
HPI - Anxiety General: Chief Complaint: Anxiety Stated Complaint: anxiety attack Time Seen by Provider: 08/26/25 08:49 History of Present Illness: 44-year-old male presents to the emergency room requesting Valium. He was in the emergency room on 08/19/2015 and was discharged home with 2 tablets of Valium he he has been on multiple medications in the past and is wanting to continue on the diazepam. He was on 10 mg 3 times a day at 1 point evidently that was stopped. He is not on any SSRIs Wellbutrin or BuSpar at this time. He does not want to take any of those. He states he has tried them in the past and [employer] works as the Valium. History of nonischemic cardiomyopathy and states because of that the only medicine he can take is the Valium. Associated symptoms: Deny chest pain, chills or fever(s) Related Data Home Medications ?Medication ?Instructions ?Recorded ?Confirmed aspirin 81 mg chewable tablet 81 mg PO DAILY 04/28/23 08/26/25 Previous Rx's ?Medication ?Instructions ?Recorded wheel chair #1 ea 05/15/23 empagliflozin 10 mg tablet 10 mg PO DAILY #30 tabs 07/11/23 furosemide 40 mg tablet 40 mg PO BID PRN edema #60 tabs 07/11/23 sacubitril 24 mg-valsartan 26 mg 1 tab PO BID #60 tabs 07/11/23 tablet spironolactone 25 mg tablet 25 mg PO DAILY #30 tabs 07/11/23 carvedilol 6.25 mg tablet 6.25 mg PO BID #1 tab 08/18/23 zolpidem 10 mg tablet 5 - 10 mg (0.5 - 1 x 10 mg) PO 06/07/24 .qhs PRN sleep #30 tabs diazepam 10 mg tablet 10 mg PO TID anxiety #90 tabs 06/28/24 Allergies Allergy/AdvReac Type Severity Reaction Status Date / Time ondansetron Allergy ADR-Vomitin Verified 08/26/25 08:41 g Review of Systems Const: Denies: fever(s) or chills Card: Denies: chest pain Resp: Denies: dyspnea GI: Denies: abdominal pain : Denies: dysuria, urinary frequency or urinary urgency Musc: Denies: neck pain or back pain Skin/Breast: Denies: rash [facility] ED PFSH: Medical History Requires oxygen therapy Panic disorder Amphetamine abuse Non-ischemic cardiomyopathy History of kidney stones Mitral valve prolapse Congestive heart failure (CHF) Surgical History History of hand surgery Family History Other CAD (coronary artery disease) Hypertension Denies family history of Diabetes Cancer Social History Smoking and tobacco/nicotine status: current some day tobacco/nicotine user Second hand smoke exposure: No Alcohol intake: former Year of sobriety/quit date alcohol: 3day Substance/Drug Use: former Adopted: No Caregiver/support person: No Lives independently: Yes Household members: significant other and children Housing: House Marital status: Single Number of children: 2 service: Yes Current occupational status: unemployed Do you think of yourself as: Straight/Heterosexual Current gender identity: Male Physical Exam Const: COMMON NORMALS: no acute distress GENERAL APPEARANCE: cooperative and comfortable ORIENTATION/CONSCIOUSNESS: Yes awake, Yes oriented to person, Yes oriented to place and Yes oriented to time HENMT: COMMON NORMALS: normocephalic, atraumatic and hearing grossly normal bilaterally HEAD & SCALP: normocephalic and atraumatic Resp: COMMON NORMALS: normal respiratory effort, No retractions, No use of accessory muscles and clear to auscultation bilaterally AUSCULTATION: clear to auscultation bilaterally Cardio: COMMON NORMALS: regular rate, regular rhythm and No murmurs present (Cardio) RATE: regular rate RHYTHM: regular rhythm Extremity: COMMON NORMALS: normal to inspection, capillary refill normal, no clubbing, cyanosis or edema, no calf tenderness and no pedal edema Neuro: SENSORIUM/ORIENTATION: Yes oriented to person, Yes oriented to place and Yes oriented to time Skin: COMMON NORMALS: no rashes or lesions noted GENERAL SKIN EXAM: no rashes or lesions noted Course Vital Signs: Vital signs: Vital Signs Temperature 97.4 F L 08/26/25 08:41 Pulse Rate 81 08/26/25 08:41 Respiratory Rate 16 08/26/25 08:41 Blood Pressure 159/112 08/26/25 08:41 Pulse Oximetry 98 08/26/25 08:41 Oxygen Delivery Me thod Room Air 08/26/25 08:41 MDM - Anxiety Medical Decision Making Medical decision making Social determinants: History of alcohol abuse poor social support I reviewed the patient's medical record. I reviewed the patient's current home meds. Alternate historians: Old records reviewed. Patient had office visit this morning just prior to coming to the emergency room primary care provider declined to refill Valium Differential diagnosis: Anxiety alcohol withdrawal Lab Review: Patient refused lab work Imaging: No imaging done Assessment of risk Level of risk: Low Hospitalization considerations: No indication for acute hospitalization Reexamination: Unchanged Assessment and plan: Patient is quite anxious. Offered alternatives and encouraged him to either go to crisis stabilization or to have intake at [facility] so they can help manage anxiety. Based on his vitals and his physical exam presentation he is not currently withdrawing from alcohol. Patient is adamant to that he was told he would get given Valium in the emergency room and prescribed some until he had his next doctor's appointment. Reviewed history with him including the office visit from this morning. Patient preferred to leave he stated if he was not going to be given Valium then he did not wish to be here. He does not wish to go to [facility] or to crisis stabilization. Encouraged him to consider enrolling in a outpatient program to help with his chronic alcohol use. Patient declines. No radiology studies performed this visit Discharge Plan Discharge Patient Disposition: Home Clinical Impression: Anxiety, Alcohol abuse, Non-ischemic cardiomyopathy Condition: Stable Prescriptions: No Action (DME) wheel chair See Rx Instructions .Route .MEDSUPPLY Qty: 1 0RF Rx Instructions: As directed carvedilol 6.25 mg tablet 6.25 mg PO BID Qty: 1 0RF Rx Instructions: must administer with a meal/food empagliflozin 10 mg tablet 10 mg PO DAILY Qty: 30 0RF furosemide 40 mg tablet 40 mg PO BID PRN (Reason: edema) Qty: 60 0RF sacubitril-valsartan 24-26 mg tablet 1 tab PO BID Qty: 60 0RF spironolactone 25 mg tablet 25 mg PO DAILY Qty: 30 0RF zolpidem 10 mg tablet 5 - 10 mg PO .qhs PRN (Reason: sleep) Qty: 30 1RF diazepam 10 mg tablet 10 mg PO TID Qty: 90 0RF aspirin 81 mg Tablet,Chewable 81 mg PO DAILY Discharge Orders: Discharge ED (Routine); Ordered 08/26/25 Ordered By: Henry Fernandez Referrals: Fernando Jurado MD [Primary Care Provider, Family Practice] Discharge Diet: Usual diet Discharge Activity: Resume usual activity Patient Instructions: Opioid Safety, Pain Management, Patient Portal & Kait Instructions Activity Restrictions/Additional Instructions: Thank you for choosing [facility] for your healthcare needs today. It is very important that you follow up as instructed or that you return to the Emergency Department should you have concerns or if your condition changes or worsens in any way. Emergency department visits are focused on emergent conditions, in some cases you may require further evaluation on an outpatient basis. You are seen emergency room with complaints of anxiety. You had been seen previously prescribed Valium. We recommend that you proceeded to the crisis stabilization unit where they can have the psychiatrist review your case and initiate appropriate medications. (Please note that included in your discharge packet is information concerning opioid safety and pain management. This information is given to all patients were discharged from the ER regardless of their discharge diagnosis or the medicines they usually take or are prescribed.) Print Language: Tajik Coding Level of Care Code ED Java Project Manager for Michelle Patel
== END 2025-08-26 10:05 | disposition home or self-care (01) ==
PROVIDERS: Emergency Provider Family Medicine; PCP Family Medicine
DX: F41.9 Anxiety disorder, unspecified (principal); F10.10 Alcohol abuse, uncomplicated; I42.8 Other cardiomyopathies; Z72.0 Tobacco use; I50.9 Heart failure, unspecified
CPT/HCPCS: 99281